=== PATIENT | female | born 1965 | race Caucasian/White ===

== ENCOUNTER 2017-01-29 23:22 | Emergency (ER) | payer SELFPAY ==
[~2017-01-29] VITALS: Ht 175.3 cm; Wt 56.7 kg
[~2017-01-29 23:22] MED LIST: PROTONIX40 MG PO
[2017-01-29 23:56] VITALS: BP 112/69
[2017-01-30] MEDS ORDERED: Norco 5mg/325mg tab ORAL ONE
[2017-01-30] MEDS ORDERED: HYDROCODON-ACE1 EA15 ORAL (00:24)
--- NOTE | 2017-01-30 00:24 | Emergency Room Report ---
History of Present Illness General Chief Complaint: Pain Source: Patient Present Illness HPI This is a 51-year-old female who had recent orthoscopic knee surgery to repair and left meniscal tear 2 weeks ago. She was doing well and off of her pain medication. Tonight her knee locked up and she tried to get up and she twisted her knee. Complaining of left knee pain. Pain is 9/10. Worse with movement. Denies any fall. Denies any nausea vomiting. No radiation. Allergies: Coded Allergies: MEPERIDINE (Verified Allergy, Intermediate, Hives, 10/18/12) COPIED FROM UNCODED SECTION MORPHINE (Verified Allergy, ITCHING, 10/18/12) METOCLOPRAMIDE (Verified Adverse Reaction, Intermediate, "MY MUSCLE MUSCLE ARE FREEZING UP", 10/18/12) COPIED FROM UNCODED SECTION Patient History Past Medical History: see triage record, old chart reviewed Past Surgical History: other Pertinent Family History: none Social History: Denies: smoking Now: No Immunizations: other Reviewed Nursing Documentation: PMH: Agreed, PSxH: Agreed Nursing Documentation-PMH Hx Cardiac Problems: No - LEFT KNEE SURGERY Hx Cancer: No Hx Gastrointestinal Problems: Yes - GASTRIC ULCER,HAD PARTIAL GASTRECTOMY X2 Hx Neurological Problems: Yes Hx Cerebrovascular Accident: No Hx Transient Ischemic Attacks: No Hx Dementia: No Hx Alzheimer's Disease: No Hx Parkinson's Disease: No Hx Meningitis: No Hx Encephalitis: No Hx Seizures: Yes - 2010 Hx Epilepsy: No Hx Multiple Sclerosis: No Hx Cerebral Palsy: No Hx Amyotrophic Lat Sclerosis: No Hx Guillian-[place] Syndrome: No Hx Paralysis: No Hx Peripheral Neuropathy: No Hx Spinal Cord Injury: No Hx Head Trauma: No Hx Traumatic Brain Injury: No Hx Memory Loss: No Hx Concentration Difficulty: No Hx Speech Problem: No Hx Tremors: No Hx Vertigo: No Hx Dizziness: No Hx Syncope: No Hx Headaches: Yes - POST SUBDURAL HEMATOMA REMOVAL Hx Aphasia: No Hx Dysphasia: No Hx Numbness: No Hx Weakness: No Hx Fatigue: No Hx Neurologic Surgery: Yes - HAD SUBDURAL HEMATOMA REMOVED Hx Brain Shunt: No Review of Systems Eye: Denies: blurred vision, eye pain ENT: Denies: ear pain, nose congestion, throat swelling Respiratory: Denies: cough, shortness of breath Cardiovascular: Denies: chest pain, palpitations Gastrointestinal: Denies: abdominal pain, diarrhea, nausea, vomiting Musculoskeletal: Reports: joint pain, joint swelling, Denies: back pain Skin: Denies: rash Neurological: Denies: headache, numbness Endocrine: Denies: increased thirst, increased urine Hematologic/Lymphatic: Denies: easy bruising All Other Systems: negative except mentioned in HPI Physical Exam Vital Signs Date Time Temp Pulse Resp B/P Pulse Ox O2 Delivery O2 Flow Rate FiO2 01/29/17 23:42 97.9 91 16 112/69 95 Room Air vitals normal Sp02 EP Interpretation: reviewed, normal General Appearance: well appearing, no apparent distress, alert Head: normocephalic, atraumatic Eyes: bilateral eye EOMI, bilateral eye PERRL ENT: hearing grossly normal, normal pharynx Neck: full range of motion, supple, no meningismus Respiratory: chest non-tender, lungs clear, normal breath sounds Cardiovascular #1: regular rate, rhythm, no murmur Gastrointestinal: normal bowel sounds, non tender, no mass, no organomegaly, no bruit, non-distended Musculoskeletal: back normal, other - Patient has tenderness along the medial meniscus. Knee is stable. Psychiatric: mood/affect normal Skin: warm/dry Medical Decision Making Diagnostic Impression: Primary Impression: Left knee sprain Qualified Codes: S83.412A - Sprain of medial collateral ligament of left knee , initial encounter ER Course She presents with left knee sprain. She said she has knee immobilizer and crutches at home. Did not require new one. No evidence of any bony injuries. She may have ligament injury. She may be an MRI. This can be done as an outpatient. Other X-Ray Diagnostic Results Other X-Ray Diagnostic Results : X-Ray Ordered: X-rays left knee Date: Jan 30, 2017 Time: 00:23 EP Interpretation: Yes Findings: no fractures, no dislocation, no soft tissue swelling Number of Views: 3 Last Vital Signs Date Time Temp Pulse Resp B/P Pulse Ox O2 Delivery O2 Flow Rate FiO2 01/29/17 23:56 97.9 79 16 112/69 95 Room Air Status: improved Disposition: HOME, SELF-CARE Condition: Stable Scripts Hydrocodone/Acetaminophen 5-325* (HYDROCODONE/ACETAMINOPHEN 5-325*) 1 Each Tablet 1 TAB ORAL Q6H Y for For Pain, #20 TAB 0 Refills Prov: DEVON JACK M.D. 01/30/17 Referrals: NOT CHOSEN [facility]/,REFERRING (PCP) Additional Instructions: Followup with the orthopedic Dr. in 3-5 days. Ice pack to the area. Use the knee immobilizer and crutches. Return if worse. DEVON JACK M.D. Jan 30, 2017 00:24
[2017-01-30 00:27] VITALS: BP 112/69
--- NOTE | 2017-01-30 12:58 | Diagnostic Imaging Report ---
Indication: PAIN Technique: 3 views of the left knee Comparison: None Findings:No suprapatellar effusion. No acute fracture. No dislocation. There is a small superior pole patellar osteophyte. Impression:No acute process This agrees with the preliminary interpretation provided by the emergency room physician
== END 2017-01-30 00:27 | disposition home or self-care (01) ==
LOC: EMR 23:54
DX: S83.92XA Sprain of unspecified site of left knee, initial encounter (principal); X58.XXXA Exposure to other specified factors, initial encounter; Y93.9 Activity, unspecified; Y99.9 Unspecified external cause status; M25.562 Pain in left knee; Z88.5 Allergy status to narcotic agent; Z88.8 Allergy status to other drugs, medicaments and biological substances; Z86.69 Personal history of other diseases of the nervous system and sense organs; Z87.19 Personal history of other diseases of the digestive system; R51 Headache; M25.50 Pain in unspecified joint; M25.40 Effusion, unspecified joint
CPT/HCPCS: 99283

== ENCOUNTER 2017-02-28 14:00 | Emergency (ER) | payer SELFPAY ==
[~2017-02-28] VITALS: Ht 175.3 cm; Wt 56.7 kg
[~2017-02-28 14:00] MED LIST changes: +HYDROCODON-ACE1 EA15 ORAL
[2017-02-28 14:06] VITALS: BP 109/75
[2017-02-28] MEDS ORDERED: Norco 5mg/325mg tab ORAL ONE (14:30)
[2017-02-28] MEDS ORDERED: IBUPROFEN600 MG ORAL (15:04)
[2017-02-28] MEDS ORDERED: NORCO 5-325 TA1 EAC1 ORAL (15:04)
[2017-02-28 15:09] VITALS: BP 109/75
--- NOTE | 2017-02-28 22:06 | Emergency Room Report ---
History of Present Illness General Chief Complaint: Upper Extremity Injury Source: Patient, Medical Record Present Illness HPI The patient is a 51-year-old female presenting for left elbow and left knee pain after falling. Patient states that she had meniscus repair surgery one month prior. She states that she was climbing stairs, tripped, and fell onto the left elbow 3 days prior. She is now complaining of both he and elbow pain. Described as a 10 out of 10 dull ache and does not radiate from these areas. Worse with touch. She denies any other symptoms including numbness or tingling. Allergies: Coded Allergies: MEPERIDINE (Verified Allergy, Intermediate, Hives, 10/18/12) COPIED FROM UNCODED SECTION MORPHINE (Verified Allergy, ITCHING, 10/18/12) METOCLOPRAMIDE (Verified Adverse Reaction, Intermediate, "MY MUSCLE MUSCLE ARE FREEZING UP", 10/18/12) COPIED FROM UNCODED SECTION Patient History Past Medical History: see triage record Pertinent Family History: none Last Menstrual Period: 1 year ago Now: No : 2 Para: 0 Reviewed Nursing Documentation: PMH: Agreed, PSxH: Agreed Nursing Documentation-PMH Past Medical History: No History, Except For Hx Cardiac Problems: No - LEFT KNEE SURGERY Hx Cancer: No Hx Gastrointestinal Problems: Yes - GASTRIC ULCER,HAD PARTIAL GASTRECTOMY X2 Hx Neurological Problems: Yes Hx Cerebrovascular Accident: No Hx Transient Ischemic Attacks: No Hx Dementia: No Hx Alzheimer's Disease: No Hx Parkinson's Disease: No Hx Meningitis: No Hx Encephalitis: No Hx Seizures: Yes - 2009 Hx Epilepsy: No Hx Multiple Sclerosis: No Hx Cerebral Palsy: No Hx Amyotrophic Lat Sclerosis: No Hx Guillian-[place] Syndrome: No Hx Paralysis: No Hx Peripheral Neuropathy: No Hx Spinal Cord Injury: No Hx Head Trauma: No Hx Traumatic Brain Injury: No Hx Memory Loss: No Hx Concentration Difficulty: No Hx Speech Problem: No Hx Tremors: No Hx Vertigo: No Hx Dizziness: No Hx Syncope: No Hx Headaches: Yes - POST SUBDURAL HEMATOMA REMOVAL Hx Aphasia: No Hx Dysphasia: No Hx Numbness: No Hx Weakness: No Hx Fatigue: No Hx Neurologic Surgery: Yes - HAD SUBDURAL HEMATOMA REMOVED Hx Brain Shunt: No Review of Systems All Other Systems: negative except mentioned in HPI Physical Exam Vital Signs Date Time Temp Pulse Resp B/P Pulse Ox O2 Delivery O2 Flow Rate FiO2 02/28/17 14:06 98.2 80 18 109/75 96 Room Air Sp02 EP Interpretation: reviewed, normal General Appearance: no apparent distress, alert, GCS 15, non-toxic Head: normocephalic, atraumatic Eyes: bilateral eye PERRL, bilateral eye normal inspection ENT: hearing grossly normal, normal pharynx, no angioedema, normal voice Musculoskeletal: back normal, gait/station normal, normal range of motion, tender - L olecranon, L anterior knee Neurologic: alert, oriented x3, responsive, motor strength/tone normal, sensory intact, speech normal Psychiatric: judgement/insight normal, memory normal, mood/affect normal, no suicidal/homicidal ideation Skin: normal color, no rash, warm/dry, well hydrated Procedures Splinting Splinting : Consent: Verbal Location: L arm Pre-Made Type: sling Pre-Proc Neuro Vasc Exam: normal Post-Proc Neuro Vasc Exam: normal Patient Tolerated: Well Complications: None Medical Decision Making PA Attestation Dr. Ng is my supervising physician. Patient management was discussed with my supervising physician Diagnostic Impression: Primary Impression: Left knee sprain Qualified Codes: S83.92XA - Sprain of unspecified site of left knee, initial encounter Additional Impression: Elbow contusion Qualified Codes: S50.02XA - Contusion of left elbow, initial encounter ER Course The patient is a 51-year-old female presenting for left elbow and left knee pain after falling Ddx considered include but not limited to sprain/strain, fracture, contusion PE: NAD TTP over the L olecranon and L anterior knee without deformity. No ecchymosis. No edema. FulL AROM X-ray of both areas are unremarkable. Left arm sling is placed She'll be discharged home with a prescription for pain medication and needs to followup with orthopedics as she had recent surgery on the left knee. ER precautions given Other X-Ray Diagnostic Results Other X-Ray Diagnostic Results #1: X-Ray ordered: L knee Indication: Pain EP Interpretation: Yes Interpretation: no dislocation, no soft tissue swelling, no fractures Impression: No acute disease Interpreting ER Provider: Dr. Ng PA Scribe Text I am acting as scribe for my supervising physician. My supervising physician's interpretation of the L knee xrays are there are no fractures, dislocations or soft tissue swelling. Other X-Ray Diagnostic Results #2: X-Ray ordered: L elbow # of Views/Limited Vs Complete: 3 View Indication: Pain EP Interpretation: Yes Interpretation: no dislocation, no soft tissue swelling, no fractures Impression: No acute disease Interpreting ER Provider: Dr. Hernandez LÓPEZ Scribe Text I am acting as scribe for my supervising physician. My supervising physician's interpretation of the L knee xrays are there are no fractures, dislocations or soft tissue swelling. Last Vital Signs Date Time Temp Pulse Resp B/P Pulse Ox O2 Delivery O2 Flow Rate FiO2 02/28/17 15:09 98.2 18 109/75 96 Room Air 02/28/17 14:06 80 Status: improved Disposition: HOME, SELF-CARE Condition: Improved Scripts Hydrocodone Bit/Acetaminophen 5-325* (NORCO 5-325 TABLET*) 1 Each Tablet 1 TAB ORAL Q6HR Y for For Pain, #10 TAB Prov: INGRID MOMIN P.A. 02/28/17 Ibuprofen* (MOTRIN*) 600 Mg Tablet 600 MG ORAL Q8H Y for For Pain, #30 TAB 0 Refills Prov: INGRID MOMIN P.A. 02/28/17 Patient Instructions: Elbow Contusion, Knee Sprain Additional Instructions: I discussed my findings with the patient. All questions and concerns have been answered. Treatment and medication compliance have been addressed. I advised the patient that they need to follow up with PMD in 3-5 days. Return to ED if pain remains or worsens, numbness or tingling occurs, new rash is noticed, fever is noticed, or if needed for any reason. Patient verbalized understanding of discharge instructions. The patient is to follow up with orthopedic surgeon for reevaluation of the left knee INGRID MOMIN Feb 28, 2017 22:06
--- NOTE | 2017-03-01 09:32 | Diagnostic Imaging Report ---
Indications: Fall, left elbow injury and pain Technique: 3 views left elbow. Findings: Comparison: None No fracture, dislocation, joint space widening or effusion , surrounding soft tissue swelling/foreign body/gas, or other acute changes are identified. IMPRESSION: No evidence of acute injury to the left elbow.
--- NOTE | 2017-03-02 10:17 | Diagnostic Imaging Report ---
Indications: Fall, left knee injury and pain Technique: 3 views left knee. Findings: Comparison: None No fracture, dislocation, joint space widening or effusion , surrounding soft tissue swelling/foreign body/gas, or other acute changes are identified. Small spur emanates from the superior pole of the patella in region of quadriceps tendon insertion. IMPRESSION: No evidence of acute injury to the left knee Patellar enthesophyte.
== END 2017-02-28 15:09 | disposition home or self-care (01) ==
LOC: EMR 14:25
DX: S83.92XA Sprain of unspecified site of left knee, initial encounter (principal); S50.02XA Contusion of left elbow, initial encounter; Z88.8 Allergy status to other drugs, medicaments and biological substances; W10.9XXA Fall (on) (from) unspecified stairs and steps, initial encounter; Y92.9 Unspecified place or not applicable
CPT/HCPCS: 99284

== ENCOUNTER 2017-03-08 21:39 | Inpatient (IN) | payer BC ==
[~2017-03-08] VITALS: Ht 175.3 cm; Wt 59.0 kg
[~2017-03-08 21:39] MED LIST changes: +IBUPROFEN600 MG ORAL; +NORCO 5-325 TA1 EAC1 ORAL
[2017-03-08] MEDS ORDERED: Famotidine 20 MG/ 2ML VIAL IVP ONE (22:00)
[2017-03-08 22:36] VITALS: BP 135/76
[2017-03-08] MEDS ORDERED: HYDROmorphone 1mg/ml Carpuject IVP ONE (22:45)
[2017-03-08 22:50] LABS: BASOPHILS % (AUTO) 1.1 % (0.0-2.0); EOSINOPHILS % (AUTO) 1.3 % (0.0-3.0); LYMPHOCYTES % (AUTO) 21.4 % (20.0-45.0); MEAN CORPUSCULAR HEMOGLOBIN 31.8 PG (27.0-31.0); MEAN CORPUSCULAR HGB CONC 34.2 G/DL (32.0-36.0); MEAN CORPUSCULAR VOLUME 93 FL (80-99); MEAN PLATELET VOLUME 8.8 FL (6.5-10.1); MONOCYTES % (AUTO) 5.4 % (1.0-10.0); NEUTROPHILS % (AUTO) 70.8 % (45.0-75.0); PLATELET COUNT 149 K/UL (150-450); RED BLOOD COUNT 3.53 M/UL (4.20-5.40); RED CELL DISTRIBUTION WIDTH 14.2 % (11.6-14.8); WHITE BLOOD COUNT 6.5 K/UL (4.8-10.8)
[2017-03-08 23:01] LABS: PROTHROMBIN TIME 10.1 SEC (9.30-11.50)
[2017-03-08 23:05] LABS: TROPONIN I < 0.30 ng/mL (<=0.30)
[2017-03-08 23:09] LABS: ALANINE AMINOTRANSFERASE 16 U/L (3-33); ALBUMIN/GLOBULIN RATIO 1.7 (1.0-2.7); ANION GAP 12 (5-15); ASPARTATE AMINO TRANSFERASE 17 U/L (5-40); CALCIUM 9.1 mg/dL (8.6-10.2); CARBON DIOXIDE 24 mEQ/L (20-30); CHLORIDE 107 mEQ/L (98-107); CREATININE 0.6 mg/dL (0.5-0.9); GLOMERULAR FILTRATION RATE > 60 mL/min (>60); HEMOLYSIS 7; LIPASE 25 U/L (< 60); POTASSIUM 3.6 mEQ/L (3.4-4.9); SODIUM 143 mEQ/L (135-145); TOTAL PROTEIN 6.1 g/dL (6.6-8.7)
[2017-03-08 23:46] LABS: APPEARANCE,URINE CLEAR; KETONES,URINE 2+ (NEGATIVE); LEUKOCYTE ESTERASE ,URINE NEGATIVE (NEGATIVE); NITRITE,URINE NEGATIVE (NEGATIVE); PH,URINE 7 (4.5-8.0); PROTEIN,URINE NEGATIVE (NEGATIVE); UROBILINOGEN,URINE NORMAL MG/DL (0.0-1.0)
[2017-03-09] VITALS (10 sets, daily range): BP systolic 96–140; BP diastolic 63–88
[2017-03-09] MEDS ORDERED: HYDROmorphone 1mg/ml Carpuject IVP ONE (00:15)
--- NOTE | 2017-03-09 01:30 | Emergency Room Report ---
History of Present Illness General Chief Complaint: Abdominal Pain Source: Patient Present Illness HPI 51-year-old female presents ED complaining of abdominal pain and vomiting. Patient states that she's been vomiting blood. Notes history of gastric ulcers. States she was recently admitted to [facility] for treatment of the ulcer and had it "clipped". She states she was discharged a few days ago. Patient notes having multiple episodes of vomiting blood. Pain is epigastric, sharp, 8/10, nonradiating. Denies chest pain or shortness of breath. Denies taking blood thinners. No other aggravating relieving factors. Denies any other associated symptoms Allergies: Coded Allergies: MEPERIDINE (Verified Allergy, Intermediate, Hives, 10/18/12) COPIED FROM UNCODED SECTION PANTOPRAZOLE (Verified Allergy, Intermediate, 03/08/17) MORPHINE (Verified Allergy, Unknown, ITCHING, 03/08/17) METOCLOPRAMIDE (Verified Adverse Reaction, Intermediate, "MY MUSCLE MUSCLE ARE FREEZING UP", 10/18/12) COPIED FROM UNCODED SECTION Patient History Past Medical History: ulcer Past Surgical History: other - gastric bypass Pertinent Family History: none Social History: Denies: alcohol use, drug use, smoking Now: No Immunizations: UTD Reviewed Nursing Documentation: PMH: Agreed, PSxH: Agreed Nursing Documentation-PMH Hx Cardiac Problems: No Hx Hypertension: No Hx Asthma: No Hx COPD: No Hx Diabetes: No Hx Cancer: No Hx Gastrointestinal Problems: Yes - ulcer Hx Dialysis: No History Of Psychiatric Problem: No Hx Neurological Problems: No Hx Cerebrovascular Accident: No Hx Transient Ischemic Attacks: No Hx Dementia: No Hx Alzheimer's Disease: No Hx Parkinson's Disease: No Hx Meningitis: No Hx Encephalitis: No Hx Seizures: No Hx Epilepsy: No Hx Multiple Sclerosis: No Hx Cerebral Palsy: No Hx Amyotrophic Lat Sclerosis: No Hx Guillian-[place] Syndrome: No Hx Paralysis: No Hx Peripheral Neuropathy: No Hx Spinal Cord Injury: No Hx Head Trauma: No Hx Traumatic Brain Injury: No Hx Memory Loss: No Hx Concentration Difficulty: No Hx Speech Problem: No Hx Tremors: No Hx Vertigo: No Hx Dizziness: No Hx Syncope: No Hx Headaches: Yes - POST SUBDURAL HEMATOMA REMOVAL Hx Aphasia: No Hx Dysphasia: No Hx Numbness: No Hx Weakness: No Hx Fatigue: No Hx Neurologic Surgery: Yes - HAD SUBDURAL HEMATOMA REMOVED Hx Brain Shunt: No Review of Systems All Other Systems: negative except mentioned in HPI Physical Exam Vital Signs Date Time Temp Pulse Resp B/P Pulse Ox O2 Delivery O2 Flow Rate FiO2 03/08/17 21:44 98.2 68 16 108/60 98 Room Air 03/08/17 22:36 98 Sp02 EP Interpretation: reviewed, normal General Appearance: alert, GCS 15, non-toxic, mild distress, thin Head: normocephalic, atraumatic Eyes: bilateral eye PERRL, bilateral eye normal inspection ENT: hearing grossly normal, normal pharynx, no angioedema, normal voice Neck: full range of motion, supple/symm/no masses Respiratory: chest non-tender, lungs clear, normal breath sounds, speaking full sentences Cardiovascular #1: regular rate, rhythm, no edema Cardiovascular #2: 2+ carotid (R), 2+ carotid (L), 2+ radial (R), 2+ radial (L) , 2+ dorsalis pedis (R), 2+ dorsalis pedis (L) Gastrointestinal: normal bowel sounds, soft, non-distended, no guarding, no rebound, tenderness - epigastric Rectal: deferred Genitourinary: normal inspection, no CVA tenderness Musculoskeletal: back normal, gait/station normal, normal range of motion, non- tender Neurologic: alert, oriented x3, responsive, motor strength/tone normal, sensory intact, speech normal Psychiatric: judgement/insight normal, memory normal, mood/affect normal, no suicidal/homicidal ideation Reflexes: 3+ bicep (R), 3+ bicep (L), 3+ tricep (R), 3+ tricep (L), 3+ knee (R) , 3+ knee (L) Skin: normal color, no rash, warm/dry, well hydrated Lymphatic: no adenopathy Medical Decision Making Diagnostic Impression: Primary Impression: UGIB (upper gastrointestinal bleed) ER Course Hospital Course 51-year-old female presents ED complaining of vomiting blood. History of ulcer. Recently discharged from [facility] Differential diagnoses include: UGIB, LGIB, hemorrhoids Clinical course Patient placed on stretcher. manager monitoring. After initial history and physical I ordered labs, IV fluids, zofran, pepcid, pain meds, CT Labs - no leukocytosis, Hb/Hct stable. electrolytes ok. trop negative CT shows status post cholecystectomy, status post gastric bypass but no acute changes otherwise She continues to have pain and is vomiting blood. Started on octreotide Case discussed with Dr. Magallanes and he agreed to accept the patient to his service for further care and support I feel this is a highly complex case requiring extensive working including EKG/ Rhythm strip, Xray/CT/US, Blood/urine lab work, repeat exams while in ED, and administration of strong opiates/narcotics for pain control, admission to hospital or close patient follow up. Diagnosis - UGIB Patient admitted to [facility] in serious condition Labs Test 03/08/17 22:20 03/08/17 23:40 White Blood Count 6.5 K/UL (4.8-10.8) Red Blood Count 3.53 M/UL (4.20-5.40) Hemoglobin 11.2 G/DL (12.0-16.0) Hematocrit 32.9 % (37.0-47.0) Mean Corpuscular Volume 93 FL (80-99) Mean Corpuscular Hemoglobin 31.8 PG (27.0-31.0) Mean Corpuscular Hemoglobin Concent 34.2 G/DL (32.0-36.0) Red Cell Distribution Width 14.2 % (11.6-14.8) Platelet Count 149 K/UL (150-450) Mean Platelet Volume 8.8 FL (6.5-10.1) Neutrophils (%) (Auto) 70.8 % (45.0-75.0) Lymphocytes (%) (Auto) 21.4 % (20.0-45.0) Monocytes (%) (Auto) 5.4 % (1.0-10.0) Eosinophils (%) (Auto) 1.3 % (0.0-3.0) Basophils (%) (Auto) 1.1 % (0.0-2.0) Prothrombin Time 10.1 SEC (9.30-11.50) Prothromb Time International Ratio 1.0 (0.9-1.1) Activated Partial Thromboplast Time 21 SEC (23-33) Sodium Level 143 mEQ/L (135-145) Potassium Level 3.6 mEQ/L (3.4-4.9) Chloride Level 107 mEQ/L (98-107) Carbon Dioxide Level 24 mEQ/L (20-30) Anion Gap 12 (5-15) Blood Urea Nitrogen 18 mg/dL (7-23) Creatinine 0.6 mg/dL (0.5-0.9) Estimat Glomerular Filtration Rate > 60 mL/min (>60) Glucose Level 96 mg/dL (74-106) Calcium Level 9.1 mg/dL (8.6-10.2) Total Bilirubin < 0.2 mg/dL (0.0-1.2) Aspartate Amino Transf (AST/SGOT) 17 U/L (5-40) Alanine Aminotransferase (ALT/SGPT) 16 U/L (3-33) Alkaline Phosphatase 62 U/L (35-104) Troponin I < 0.30 ng/mL (<=0.30) Total Protein 6.1 g/dL (6.6-8.7) Albumin 3.9 g/dL (3.5-5.2) Globulin 2.2 g/dL Albumin/Globulin Ratio 1.7 (1.0-2.7) Lipase 25 U/L (< 60) Urine Color Pale yellow Urine Appearance Clear Urine pH 7 (4.5-8.0) Urine Specific [place] 1.010 (1.005-1.035) Urine Protein Negative (NEGATIVE) Urine Glucose (UA) Negative (NEGATIVE) Urine Ketones 2+ (NEGATIVE) Urine Occult Blood Negative (NEGATIVE) Urine Nitrite Negative (NEGATIVE) Urine Bilirubin Negative (NEGATIVE) Urine Urobilinogen Normal MG/DL (0.0-1.0) Urine Leukocyte Esterase Negative (NEGATIVE) CT/MRI/US Diagnostic Results CT/MRI/US Diagnostic Results : Imaging Test Ordered: CT A/P Impression s/p cholecystectomy. s/p gastric bypass. no acute process identifed Last Vital Signs Date Time Temp Pulse Resp B/P Pulse Ox O2 Delivery O2 Flow Rate FiO2 03/08/17 22:36 98.0 78 16 135/76 98 Room Air 98 Status: improved Disposition: ADMITTED INPATIENT Condition: Serious Referrals: [facility],REFERRING (PCP) KENNY TAVAREZ M.D. Mar 09, 2017 01:30
[2017-03-09] MEDS: Octreotide Acetate 500 MCG in Sodium Chloride 499 ML IV SCH ×3 (01:45→22:38)
[2017-03-09] MEDS ORDERED: XANAX0.25 MG ORAL (02:12)
[2017-03-09] MEDS ORDERED: ZANTAC150 MG ORAL (02:12)
[2017-03-09] MEDS ORDERED: CARAFATE1 G1 ORAL (02:12)
[2017-03-09] MEDS ORDERED: HYDROmorphone 2mg tab ORAL PRN (02:15)
[2017-03-09 02:48] LABS: EOSINOPHILS % (AUTO) 1.7 % (0.0-3.0); LYMPHOCYTES % (AUTO) 29.5 % (20.0-45.0); MEAN CORPUSCULAR HEMOGLOBIN 30.4 PG (27.0-31.0); MEAN CORPUSCULAR HGB CONC 32.1 G/DL (32.0-36.0); MEAN CORPUSCULAR VOLUME 95 FL (80-99); MEAN PLATELET VOLUME 8.4 FL (6.5-10.1); MONOCYTES % (AUTO) 6.2 % (1.0-10.0); NEUTROPHILS % (AUTO) 61.6 % (45.0-75.0); PLATELET COUNT 145 K/UL (150-450); RED BLOOD COUNT 3.59 M/UL (4.20-5.40); RED CELL DISTRIBUTION WIDTH 14.7 % (11.6-14.8); WHITE BLOOD COUNT 5.9 K/UL (4.8-10.8)
[2017-03-09] MEDS ORDERED: ALPRAZolam 0.25mg tab ORAL SCH (05:30)
[2017-03-09] MEDS: HYDROmorphone 1mg/ml Carpuject IVP PRN ×5 (05:40→22:57)
[2017-03-09] MEDS ORDERED: Sucralfate 1gm tab ORAL ONE (06:30)
--- NOTE | 2017-03-09 09:10 | Diagnostic Imaging Report ---
Indication: Abdominal pain Technique: Continuous helical transaxial imaging of the abdomen and pelvis was obtained from the lung bases to the pubic symphysis during intravenous contrast administration. Coronal 2-D reformats were also obtained. Study obtained in a Siemens sensation [address] Total Dose length Product (DLP): [address] Dose Index Volume (CTDIvol): 15 mGy Comparison: None Findings: There is mild posterior basilar atelectasis. Cholecystectomy noted. No biliary ductal prominence is demonstrated. Please correlate clinically. Sutures in the stomach are noted, likely stigmata of gastric bypass. No free fluid or free air or evidence of bowel obstruction. No hydronephrosis demonstrated. Mild arterial calcifications are present. The uterus is retroverted. The appendix is definitely seen. Impression: Biliary ductal prominence in the context of previous cholecystectomy. Please correlate clinically. Status post gastric bypass. Retroverted uterus [facility] has communicated the preliminary results to the Emergency Department. Their findings are largely concordant with this report. The CT scanner at [facility] is accredited by the [employer] and the scans are performed using dose optimization techniques as appropriate to a performed exam including Automatic Exposure control.
[2017-03-09 12:18] LABS: EOSINOPHILS % (AUTO) 3.8 % (0.0-3.0); LYMPHOCYTES % (AUTO) 43.4 % (20.0-45.0); MEAN CORPUSCULAR HEMOGLOBIN 29.7 PG (27.0-31.0); MEAN CORPUSCULAR HGB CONC 31.6 G/DL (32.0-36.0); MEAN CORPUSCULAR VOLUME 94 FL (80-99); MEAN PLATELET VOLUME 8.2 FL (6.5-10.1); MONOCYTES % (AUTO) 6.8 % (1.0-10.0); PLATELET COUNT 138 K/UL (150-450); RED BLOOD COUNT 3.61 M/UL (4.20-5.40); RED CELL DISTRIBUTION WIDTH 14.7 % (11.6-14.8); WHITE BLOOD COUNT 4.5 K/UL (4.8-10.8)
[2017-03-09 12:24] LABS: ANION GAP 9 (5-15); CALCIUM 8.3 mg/dL (8.6-10.2); CARBON DIOXIDE 27 mEQ/L (20-30); CHLORIDE 104 mEQ/L (98-107); CREATININE 0.5 mg/dL (0.5-0.9); GLOMERULAR FILTRATION RATE > 60 mL/min (>60); HEMOLYSIS 4; POTASSIUM 3.3 mEQ/L (3.4-4.9); SODIUM 140 mEQ/L (135-145)
[2017-03-09] MEDS: ALPRAZolam 0.25mg tab ORAL SCH (18:04)
[2017-03-09 18:24] LABS: BASOPHILS % (AUTO) 1.7 % (0.0-2.0); EOSINOPHILS % (AUTO) 4.4 % (0.0-3.0); LYMPHOCYTES % (AUTO) 43.4 % (20.0-45.0); MEAN CORPUSCULAR HEMOGLOBIN 30.5 PG (27.0-31.0); MEAN CORPUSCULAR HGB CONC 32.8 G/DL (32.0-36.0); MEAN CORPUSCULAR VOLUME 93 FL (80-99); MEAN PLATELET VOLUME 8.3 FL (6.5-10.1); MONOCYTES % (AUTO) 6.2 % (1.0-10.0); NEUTROPHILS % (AUTO) 44.4 % (45.0-75.0); PLATELET COUNT 135 K/UL (150-450); RED BLOOD COUNT 3.63 M/UL (4.20-5.40); RED CELL DISTRIBUTION WIDTH 14.5 % (11.6-14.8); WHITE BLOOD COUNT 4.3 K/UL (4.8-10.8)
[2017-03-10] VITALS (9 sets, daily range): BP systolic 95–122; BP diastolic 54–75
[2017-03-10 02:04] LABS: BASOPHILS % (AUTO) 1.5 % (0.0-2.0); EOSINOPHILS % (AUTO) 5.2 % (0.0-3.0); LYMPHOCYTES % (AUTO) 45.3 % (20.0-45.0); MEAN CORPUSCULAR HGB CONC 32.5 G/DL (32.0-36.0); MEAN CORPUSCULAR VOLUME 95 FL (80-99); MEAN PLATELET VOLUME 7.7 FL (6.5-10.1); MONOCYTES % (AUTO) 7.1 % (1.0-10.0); NEUTROPHILS % (AUTO) 40.9 % (45.0-75.0); PLATELET COUNT 144 K/UL (150-450); RED BLOOD COUNT 3.63 M/UL (4.20-5.40); RED CELL DISTRIBUTION WIDTH 14.4 % (11.6-14.8)
[2017-03-10] MEDS: HYDROmorphone 1mg/ml Carpuject IVP PRN ×6 (03:14→23:22)
--- NOTE | 2017-03-10 04:00 | History and Physical Report ---
DATE OF ADMISSION: 03/09/2017 CHIEF COMPLAINT: Abdominal pain. HISTORY OF PRESENT ILLNESS: This is a 51-year-old female who was just discharged from [facility] two days ago after admission for GI bleed. The patient was admitted there to the ISP service. The patient underwent there full workup. She was seen there by Dr. Zhou, GI consult. She underwent EGD with active oozing seen in the jejunum. This was a hemoclips. Her hemoglobin remained stable post procedure with no further episodes of hematemesis. She had a trial of Protonix. The patient developed "body spasms." This resolved with Benadryl. The patient was intolerant to PPIs and was started on Zantac b.i.d. She was continued on Carafate. The patient's symptoms were controlled with p.o. [place]. The patient demanded to go home and was discharged. I tried to get the patient to my office, but the phone was disconnected. The patient was referred interestingly in this emergency room yesterday. PAST MEDICAL HISTORY: 1. Multiple admissions for gastrointestinal bleed. 2. Status post partial gastrectomy at [facility] in 2006. 3. Anastomotic AVMs. 4. Status post APC three months ago. 5. Degenerative joint disease. 6. Status post cholecystectomy. 7. Status post gastric bypass. 8. History of extrahepatic biliary ductal dilatation. 9. Decompressed rectosigmoid. 10. History of head injury. 11. History of anemia. 12. History of bleeding disorder. 13. History of subdural hematoma in 2009. 14. Status post appendectomy. 15. History of GI Argon plasma coagulation. 16. Status post hysterectomy. MEDICATIONS: Pre-admission, [place] p.r.n., Zofran p.r.n., Protonix, and Carafate. ALLERGIES: Meperidine, morphine causing rash, and Reglan. SOCIAL HISTORY: She smokes one pack a day of cigarettes. FAMILY HISTORY: Unremarkable. REVIEW OF SYSTEMS: HEENT: Normal. Endocrine: No history of diabetes, thyroid, or adrenal problems. Respiratory: She denies shortness of breath, cough, or hemoptysis. Cardiovascular: She denies chest pain or palpitations. Gastrointestinal: No history of hematochezia, melena, hematemesis, diarrhea, or constipation. Genitourinary: She denies dysuria, frequency, or hematuria. Neurologic: No history of stroke, syncope, or Parkinson disease. PHYSICAL EXAMINATION: GENERAL: This is a middle-aged female, who is in no acute distress. VITAL SIGNS: Blood pressure 100/60, pulse 60 and regular, respiratory rate 20, and temperature 98 degrees. HEENT: The head is normocephalic and atraumatic. Pupils are equal, round, and reactive to light and accommodation consensually. NECK: Supple. Trachea midline. There was no lymphadenopathy or thyromegaly. LUNGS: Clear to auscultation and percussion. HEART: Regular rate and rhythm without rubs, murmurs, or gallops. ABDOMEN: Soft and nontender. Bowel sounds are active. EXTREMITIES: No clubbing, cyanosis, or edema. NEUROLOGIC: She is alert and oriented x4. Cranial nerves II through XII are intact. LABORATORY AND ANCILLARY DATA: CBC and BMP within normal limits. Imaging reports, CT scan of abdomen shows biliary ductal prominence, status post gastric bypass and retroverted uterus. ASSESSMENT: 1. Nonspecific abdominal pain. Plan is GI consult. 2. Multiple admissions for gastrointestinal bleed. 3. Status post partial gastrectomy at [facility] in 2006. 4. Anastomotic arteriovenous malformations. 5. Status post intermittent pneumatic compression three months ago. 6. Degenerative joint disease. 7. Status post cholecystectomy. 8. Status post gastric bypass. 9. History of extra hepatic biliary ductal dilatation. 10. Decompressed rectosigmoid. 11. History of head injury. 12. History of anemia. 13. History of bleeding disorder. 14. History of subdural hematoma in 2009. 15. Status post appendectomy. 16. History of GI Argon plasma coagulation. 17. Status post hysterectomy. PLAN: 1. Symptomatic treatment. 2. GI to advice. Mariya Treadwell M.D. DR: LEILA JOB#: [id number] CC:
[2017-03-10] MEDS: ALPRAZolam 0.25mg tab ORAL SCH ×2 (06:06→18:04)
[2017-03-10 06:31] LABS: BASOPHILS % (AUTO) 1.3 % (0.0-2.0); EOSINOPHILS % (AUTO) 4.9 % (0.0-3.0); LYMPHOCYTES % (AUTO) 46.4 % (20.0-45.0); MEAN CORPUSCULAR HEMOGLOBIN 30.1 PG (27.0-31.0); MEAN CORPUSCULAR HGB CONC 31.6 G/DL (32.0-36.0); MEAN CORPUSCULAR VOLUME 95 FL (80-99); MEAN PLATELET VOLUME 8.5 FL (6.5-10.1); MONOCYTES % (AUTO) 7.6 % (1.0-10.0); NEUTROPHILS % (AUTO) 39.8 % (45.0-75.0); PLATELET COUNT 137 K/UL (150-450); RED BLOOD COUNT 3.78 M/UL (4.20-5.40); RED CELL DISTRIBUTION WIDTH 14.5 % (11.6-14.8); WHITE BLOOD COUNT 3.8 K/UL (4.8-10.8)
[2017-03-10 06:41] LABS: PROTHROMBIN TIME 10.7 SEC (9.30-11.50)
[2017-03-10 06:49] LABS: ANION GAP 10 (5-15); ASPARTATE AMINO TRANSFERASE 27 U/L (5-40); CALCIUM 8.5 mg/dL (8.6-10.2); CARBON DIOXIDE 26 mEQ/L (20-30); CHLORIDE 104 mEQ/L (98-107); CREATININE 0.5 mg/dL (0.5-0.9); GLOMERULAR FILTRATION RATE > 60 mL/min (>60); POTASSIUM 3.9 mEQ/L (3.4-4.9); SODIUM 140 mEQ/L (135-145)
[2017-03-10 06:50] LABS: ALANINE AMINOTRANSFERASE 20 U/L (3-33); ALBUMIN/GLOBULIN RATIO 1.7 (1.0-2.7); HEMOLYSIS 7; TOTAL PROTEIN 5.5 g/dL (6.6-8.7)
[2017-03-10] MEDS: Octreotide Acetate 500 MCG in Sodium Chloride 499 ML IV SCH ×2 (08:46→18:06)
[2017-03-10] MEDS ORDERED: NS 550ML IV ONE (11:55)
[2017-03-10] MEDS ORDERED: LR 1000ml ONE (12:00)
[2017-03-10] MEDS ORDERED: Lidocaine 1% MPF 10mg/ml 5ml ONE (12:00)
[2017-03-10] MEDS ORDERED: Propofol 10mg/ml 20ml IV ONE (12:00)
--- NOTE | 2017-03-10 12:01 | Pre-Procedure Note/Attestation ---
Pre-Procedure Note/Attestation Complete Prior to Procedure Planned Procedure: not applicable Procedure Narrative: egd Indications for Procedure Pre-Operative Diagnosis: gib Attestation I attest that I discussed the nature of the procedure; its benefits; risks and complications; and alternatives (and the risks and benefits of such alternatives ), prior to the procedure, with the patient (or the patient's legal rental representative). I attest that, if there was a reasonable possibility of needing a blood transfusion, the patient (or the patient's legal rental representative) was given the [facility] standardized written summary, pursuant to the Karthik Memo Blood Safety Act ([place] Health and Safety Code # 1645, as amended). I attest that I re-evaluated the patient just prior to the surgery and that there has been no change in the patient's H&P, except as documented below: CHAR MENEZES Mar 10, 2017 12:01
--- NOTE | 2017-03-10 12:30 | Endoscopy Procedure Note ---
Endoscopy Procedure Note Indication for Procedure: gib Procedures Performed: EGD Operative Findings/Diagnosis: gastric polyp Specimen: yes Pt Tolerated Procedure Well: Yes Estimated Blood Loss: none Anesthesiologist: florencia Anesthesia: MAC Implant(s) used?: No 50 yrs or older w/o bx or poly: Not Applicable 10yrs. F/U not recommended: Not Applicable CHAR MENEZES Mar 10, 2017 12:30
--- NOTE | 2017-03-10 12:50 | General Progress Note ---
Subjective Allergies: Coded Allergies: MEPERIDINE (Verified Allergy, Intermediate, Hives, 10/18/12) COPIED FROM UNCODED SECTION PANTOPRAZOLE (Verified Allergy, Intermediate, 03/08/17) MORPHINE (Verified Allergy, Unknown, ITCHING, 03/08/17) METOCLOPRAMIDE (Verified Adverse Reaction, Intermediate, "MY MUSCLE MUSCLE ARE FREEZING UP", 10/18/12) COPIED FROM UNCODED SECTION Subjective Patient went for EGD. To review results . Objective Last 24 Hour Vital Signs Date Time Temp Pulse Resp B/P Pulse Ox O2 Delivery O2 Flow Rate FiO2 03/10/17 11:45 97.9 86 19 122/74 96 Room Air 03/10/17 11:36 97.9 03/10/17 08:00 50 03/10/17 08:00 97.9 57 20 118/75 96 Room Air 03/10/17 04:38 50 03/10/17 04:22 97.7 58 20 114/73 97 Room Air 58 03/10/17 04:00 58 03/10/17 00:00 58 03/09/17 23:33 97.7 56 20 124/80 99 Room Air 56 03/09/17 20:12 98.0 62 20 140/88 98 Room Air 62 03/09/17 20:00 59 03/09/17 16:00 98.2 72 18 110/73 97 Room Air 03/09/17 15:51 58 Intake and Output 03/09/17 03/10/17 19:00 07:00 Intake Total 350 ml 952.5 ml Output Total 1 ml Balance 350 ml 951.5 ml Intake Oral 365 ml IV Total 350 ml 587.5 ml Emesis 1 ml # Voids 2 Laboratory Tests 03/09/17 17:45: White Blood Count 4.3L, Red Blood Count 3.63L, Hemoglobin 11.1L, Hematocrit 33.8L, Mean Corpuscular Volume 93, Mean Corpuscular Hemoglobin 30.5, Mean Corpuscular Hemoglobin Concent 32.8, Red Cell Distribution Width 14.5, Platelet Count 135L, Mean Platelet Volume 8.3, Neutrophils (%) (Auto) 44.4L, Lymphocytes (%) (Auto) 43.4, Monocytes (%) (Auto) 6.2, Eosinophils (%) (Auto) 4.4H, Basophils (%) (Auto) 1.7 03/10/17 01:40: White Blood Count 4.0L, Red Blood Count 3.63L, Hemoglobin 11.2L, Hematocrit 34.6L, Mean Corpuscular Volume 95, Mean Corpuscular Hemoglobin 31.0, Mean Corpuscular Hemoglobin Concent 32.5, Red Cell Distribution Width 14.4, Platelet Count 144L, Mean Platelet Volume 7.7, Neutrophils (%) (Auto) 40.9L, Lymphocytes (%) (Auto) 45.3H, Monocytes (%) (Auto) 7.1, Eosinophils (%) (Auto) 5.2H, Basophils (%) (Auto) 1.5 03/10/17 06:20: White Blood Count 3.8L, Red Blood Count 3.78L, Hemoglobin 11.4L, Hematocrit 36.0L, Mean Corpuscular Volume 95, Mean Corpuscular Hemoglobin 30.1, Mean Corpuscular Hemoglobin Concent 31.6L, Red Cell Distribution Width 14.5, Platelet Count 137L, Mean Platelet Volume 8.5, Neutrophils (%) (Auto) 39.8L, Lymphocytes (%) (Auto) 46.4H, Monocytes (%) (Auto) 7.6, Eosinophils (%) (Auto) 4.9H, Basophils (%) (Auto) 1.3, Prothrombin Time 10.7, Prothromb Time International Ratio 1.0, Activated Partial Thromboplast Time 26, Sodium Level 140, Potassium Level 3.9, Chloride Level 104, Carbon Dioxide Level 26, Anion Gap 10, Blood Urea Nitrogen 6L, Creatinine 0.5, Estimat Glomerular Filtration Rate > 60, Glucose Level 85, Calcium Level 8.5L, Total Bilirubin 0.3, Aspartate Amino Transf (AST/SGOT) 27, Alanine Aminotransferase (ALT/SGPT) 20, Alkaline Phosphatase 51, Total Protein 5.5L, Albumin 3.5, Globulin 2.0, Albumin/Globulin Ratio 1.7 Height (Feet): 5 Height (Inches): 9.00 Weight (Pounds): 130 IRENE RUBIO Mar 10, 2017 12:50
--- NOTE | 2017-03-10 13:17 | Anethesia Preoperative Eval ---
Anesthesia Pre-op PMH/ROS General Date of Evaluation: Mar 10, 2017 Anesthesiologist: Aries ASA Score: ASA 3 Mallampati Score Class I : Soft palate, uvula, fauces, pillars visible Class II: Soft palate, uvula, fauces visible Class III: Soft palate, base of uvula visible Class IV: Only hard plate visible Mallampati Classification: Class II Surgeon: Charlie Diagnosis: GI bleed Surgical Procedure: EGD Anesthesia History: none Family History: no anesthesia problems Allergies: Coded Allergies: MEPERIDINE (Verified Allergy, Intermediate, Hives, 10/18/12) COPIED FROM UNCODED SECTION PANTOPRAZOLE (Verified Allergy, Intermediate, 03/08/17) MORPHINE (Verified Allergy, Unknown, ITCHING, 03/08/17) METOCLOPRAMIDE (Verified Adverse Reaction, Intermediate, "MY MUSCLE MUSCLE ARE FREEZING UP", 10/18/12) COPIED FROM UNCODED SECTION Medications: see eMAR Past Medical History Cardiovascular: Denies: CAD, HTN, MS, arrhythmia, other, valve dz Pulmonary: Denies: COPD, GEO, asthma, other Gastrointestinal/Genitourinary: Reports: GERD, Denies: CRI, ESRD, other Neurologic/Psychiatric: Reports: other - h/o subdural hematoma, Denies: CVA, TIA, dementia, depression/anxiety Endocrine: Denies: DM, hypothyroidism, other, steroids HEENT: Denies: [place] (L), [place] (R), cataract (L), cataract (R), glaucoma, other Hematology/Immune: Reports: anemia - acute on chronic, Denies: DVT, bleeding disorder, other Musculoskeletal/Integumentary: Denies: DDD, DJD, OA, RA, edema, other PSxH Narrative: partial gastrectomy Anesthesia Pre-op Phys. Exam Physician Exam Last Vital Signs Date Time Temp Pulse Resp B/P Pulse Ox O2 Delivery O2 Flow Rate FiO2 03/10/17 12:50 97.9 59 18 110/75 98 Room Air 03/10/17 12:37 3.0 03/09/17 03:20 98 Constitutional: NAD Cardiovascular: RRR Respiratory: CTA Airway Exam Mallampati Score: Class II MO: full ROM: full Teeth: intact Anesthesia Pre-op A/P Labs Hematology Test 03/09/17 17:45 03/10/17 01:40 03/10/17 06:20 White Blood Count 4.3 K/UL (4.8-10.8) L 4.0 K/UL (4.8-10.8) L 3.8 K/UL (4.8-10.8) L Red Blood Count 3.63 M/UL (4.20-5.40) L 3.63 M/UL (4.20-5.40) L 3.78 M/UL (4.20-5.40) L Hemoglobin 11.1 G/DL (12.0-16.0) L 11.2 G/DL (12.0-16.0) L 11.4 G/DL (12.0-16.0) L Hematocrit 33.8 % (37.0-47.0) L 34.6 % (37.0-47.0) L 36.0 % (37.0-47.0) L Mean Corpuscular Volume 93 FL (80-99) 95 FL (80-99) 95 FL (80-99) Mean Corpuscular Hemoglobin 30.5 PG (27.0-31.0) 31.0 PG (27.0-31.0) 30.1 PG (27.0-31.0) Mean Corpuscular Hemoglobin Concent 32.8 G/DL (32.0-36.0) 32.5 G/DL (32.0-36.0) 31.6 G/DL (32.0-36.0) L Red Cell Distribution Width 14.5 % (11.6-14.8) 14.4 % (11.6-14.8) 14.5 % (11.6-14.8) Platelet Count 135 K/UL (150-450) L 144 K/UL (150-450) L 137 K/UL (150-450) L Mean Platelet Volume 8.3 FL (6.5-10.1) 7.7 FL (6.5-10.1) 8.5 FL (6.5-10.1) Neutrophils (%) (Auto) 44.4 % (45.0-75.0) L 40.9 % (45.0-75.0) L 39.8 % (45.0-75.0) L Lymphocytes (%) (Auto) 43.4 % (20.0-45.0) 45.3 % (20.0-45.0) H 46.4 % (20.0-45.0) H Monocytes (%) (Auto) 6.2 % (1.0-10.0) 7.1 % (1.0-10.0) 7.6 % (1.0-10.0) Eosinophils (%) (Auto) 4.4 % (0.0-3.0) H 5.2 % (0.0-3.0) H 4.9 % (0.0-3.0) H Basophils (%) (Auto) 1.7 % (0.0-2.0) 1.5 % (0.0-2.0) 1.3 % (0.0-2.0) Coagulation Test 03/10/17 06:20 Prothrombin Time 10.7 SEC (9.30-11.50) Prothromb Time International Ratio 1.0 (0.9-1.1) Activated Partial Thromboplast Time 26 SEC (23-33) Chemistry Test 03/10/17 06:20 Sodium Level 140 mEQ/L (135-145) Potassium Level 3.9 mEQ/L (3.4-4.9) Chloride Level 104 mEQ/L (98-107) Carbon Dioxide Level 26 mEQ/L (20-30) Anion Gap 10 (5-15) Blood Urea Nitrogen 6 mg/dL (7-23) L Creatinine 0.5 mg/dL (0.5-0.9) Estimat Glomerular Filtration Rate > 60 mL/min (>60) Glucose Level 85 mg/dL (74-106) Calcium Level 8.5 mg/dL (8.6-10.2) L Total Bilirubin 0.3 mg/dL (0.0-1.2) Aspartate Amino Transf (AST/SGOT) 27 U/L (5-40) Alanine Aminotransferase (ALT/SGPT) 20 U/L (3-33) Alkaline Phosphatase 51 U/L (35-104) Total Protein 5.5 g/dL (6.6-8.7) L Albumin 3.5 g/dL (3.5-5.2) Globulin 2.0 g/dL Albumin/Globulin Ratio 1.7 (1.0-2.7) Studies Pre-op Studies: EKG - sr Risk Assessment & Plan Assessment: ASA II Plan: MAC Status Change Before Surgery: No Pre-Antibiotics Drug: NBettyA NAKITA DEL ROSARIO M.D. Mar 10, 2017 13:17
--- NOTE | 2017-03-10 13:17 | Immediate Post-Op Evaluation ---
Immediate Post-Op Evalulation Immediate Post-Op Evalulation Procedure: EGD Date of Evaluation: Mar 10, 2017 IV Fluids: 300 Blood Products: 0 Estimated Blood Loss: 0 Urinary Output: 0 Blood Pressure Systolic: 110 Blood Pressure Diastolic: 79 Pulse Rate: 71 Respiratory Rate: 16 O2 Sat by Pulse Oximetry: 100 Temperature (Fahrenheit): 97.1 Pain Score (1-10): 0 Nausea: No Vomiting: No Complications 0 Patient Status: awake, patent, none Hydration Status: adequate Drug: N//A NAKITA DEL ROSARIO M.D. Mar 10, 2017 13:17
--- NOTE | 2017-03-10 13:18 | 48 Hour Post Anesthesia Eval ---
Post Anesthesia Evaluation Procedure: EGD Date of Evaluation: Mar 10, 2017 Time of Evaluation: 19:43 Blood Pressure Systolic: 114 0: 70 Pulse Rate: 56 Respiratory Rate: 20 Temperature (Fahrenheit): 98.5 O2 Sat by Pulse Oximetry: 98 Airway: patent Nausea: No Vomiting: No Pain Intensity: 0 Hydration Status: adequate Cardiopulmonary Status: at baseline Mental Status/LOC: patient returned to baseline Post-Anesthesia Complications: 0 Follow-up care needed: N/A - further care as per primary team NAKITA DEL ROSARIO M.D. Mar 10, 2017 13:18
[2017-03-10 14:10] LABS: BASOPHILS % (AUTO) 1.2 % (0.0-2.0); EOSINOPHILS % (AUTO) 4.2 % (0.0-3.0); LYMPHOCYTES % (AUTO) 37.9 % (20.0-45.0); MEAN CORPUSCULAR HEMOGLOBIN 30.7 PG (27.0-31.0); MEAN CORPUSCULAR HGB CONC 31.9 G/DL (32.0-36.0); MEAN CORPUSCULAR VOLUME 96 FL (80-99); MEAN PLATELET VOLUME 9.4 FL (6.5-10.1); MONOCYTES % (AUTO) 7.2 % (1.0-10.0); NEUTROPHILS % (AUTO) 49.6 % (45.0-75.0); PLATELET COUNT 136 K/UL (150-450); RED BLOOD COUNT 4.07 M/UL (4.20-5.40); RED CELL DISTRIBUTION WIDTH 14.3 % (11.6-14.8)
--- NOTE | 2017-03-10 17:44 | Cardiology Report ---
APPROVED REPORT EKG Measurement Heart [id number] Sinus bradycardia Possible Left atrial enlargement Septal infarct, age undetermined Abnormal ECG
--- NOTE | 2017-03-10 18:30 | Procedure Note ---
DATE OF PROCEDURE: 03/10/2017 SURGEON: Sacha Guerra M.D. PROCEDURE: Upper endoscopy with biopsy. ANESTHESIOLOGIST: Karen Chris M.D. INSTRUMENT: Olympus adult flexible upper endoscope. INDICATION: Upper gastrointestinal bleeding. REASON FOR PROCEDURE: The procedure, risks, benefits, and possible consequences, including hemorrhage, aspiration, perforation and infection, and alternative treatments, were explained to the patient/legal guardian by Dr. Sacha Guerra and the patient/legal guardian understood and accepted these risks. PROCEDURE: After informed consent was obtained and the patient was adequately sedated, Olympus upper endoscope was advanced from the mouth, into the esophagus, into the stomach and the patient had partial antrectomy. Then, scope was advanced to the jejunum. There is no active upper gastrointestinal bleeding at this time. There was a small polyp in the gastric body, which was biopsied. The patient had evidence of small hiatal hernia. We advanced the scope into the jejunum where the prior clip was seen. Clip was still holding. There was no active bleeding at this time. No obvious ulceration. No obvious visible vessel. The patient tolerated the procedure well without any complication. SUMMARY OF FINDINGS: 1. Small hiatal hernia. 2. Gastric polyps, status post biopsy. 3. History of partial antrectomy. 4. Clip seen in the jejunum without any active bleeding at this time. RECOMMENDATIONS: The patient had a stable hemoglobin and hematocrit since admission, most probably the blood was seen most probably from prior bleeding. Plan to resume diet and monitor labs. Follow up biopsy results. Possible discharge if the patient is stable. I want to thank, Dr. Treadwell, for this kind referral. Sacha Guerra M.D. DR: JENNY JOB#: [id number] CC: Mariya Treadwell M.D.; Fax#: [phone]
[2017-03-10 19:57] LABS: EOSINOPHILS % (AUTO) 3.3 % (0.0-3.0); LYMPHOCYTES % (AUTO) 23.4 % (20.0-45.0); MEAN CORPUSCULAR HGB CONC 32.8 G/DL (32.0-36.0); MEAN CORPUSCULAR VOLUME 94 FL (80-99); MEAN PLATELET VOLUME 7.4 FL (6.5-10.1); MONOCYTES % (AUTO) 5.3 % (1.0-10.0); PLATELET COUNT 139 K/UL (150-450); RED BLOOD COUNT 3.41 M/UL (4.20-5.40); RED CELL DISTRIBUTION WIDTH 14.2 % (11.6-14.8); WHITE BLOOD COUNT 5.8 K/UL (4.8-10.8)
[2017-03-11] VITALS: BP 98/64
[2017-03-11] MEDS: HYDROmorphone 1mg/ml Carpuject IVP PRN ×3 (03:40→12:10)
[2017-03-11] MEDS: Octreotide Acetate 500 MCG in Sodium Chloride 499 ML IV SCH ×2 (03:44→13:45)
[2017-03-11 04:00] VITALS: BP 103/67
[2017-03-11 05:47] LABS: BASOPHILS % (AUTO) 0.6 % (0.0-2.0); EOSINOPHILS % (AUTO) 1.5 % (0.0-3.0); LYMPHOCYTES % (AUTO) 17.9 % (20.0-45.0); MEAN CORPUSCULAR HEMOGLOBIN 31.1 PG (27.0-31.0); MEAN CORPUSCULAR HGB CONC 32.7 G/DL (32.0-36.0); MEAN CORPUSCULAR VOLUME 95 FL (80-99); MEAN PLATELET VOLUME 8.9 FL (6.5-10.1); MONOCYTES % (AUTO) 4.7 % (1.0-10.0); NEUTROPHILS % (AUTO) 75.4 % (45.0-75.0); PLATELET COUNT 135 K/UL (150-450); RED BLOOD COUNT 3.63 M/UL (4.20-5.40); WHITE BLOOD COUNT 6.7 K/UL (4.8-10.8)
[2017-03-11] MEDS: ALPRAZolam 0.25mg tab ORAL SCH (06:08)
[2017-03-11 06:15] LABS: ANION GAP 13 (5-15); CALCIUM 8.3 mg/dL (8.6-10.2); CARBON DIOXIDE 26 mEQ/L (20-30); CHLORIDE 104 mEQ/L (98-107); CREATININE 0.5 mg/dL (0.5-0.9); GLOMERULAR FILTRATION RATE > 60 mL/min (>60); HEMOLYSIS 8; POTASSIUM 4.3 mEQ/L (3.4-4.9); SODIUM 143 mEQ/L (135-145)
[2017-03-11 08:00] VITALS: BP 110/67
--- NOTE | 2017-03-11 11:19 | GI Progress Note ---
Assessment/Plan Problems: (1) UGIB (upper gastrointestinal bleed) ICD Codes: K92.2 - Gastrointestinal hemorrhage, unspecified SNOMED: 38268841 (2) GIB (gastrointestinal bleeding) ICD Codes: K92.2 - Gastrointestinal hemorrhage, unspecified SNOMED: 67109691 (3) Anastomotic ulcer ICD Codes: K28.9 - Anastomotic ulcer SNOMED: 15776096 Status: unchanged Status Narrative Discussed with Dr. Guerra. Assessment/Plan SUMMARY OF FINDINGS: 1. Small hiatal hernia. 2. Gastric polyps, status post biopsy. 3. History of partial antrectomy. 4. Clip seen in the jejunum without any active bleeding at this time. stable H&H RECOMMENDATIONS: ok for dc per GI standpoint once pain and nausea controlled resume diet zofran prn prn transfusion pain mgmt fu bx for H. Pylori fu labs Subjective Subjective abdominal pain 10/10 nausea only Objective Last 24 Hour Vital Signs Date Time Temp Pulse Resp B/P Pulse Ox O2 Delivery O2 Flow Rate FiO2 03/11/17 08:00 61 03/11/17 08:00 98.3 69 21 110/67 98 Room Air 03/11/17 04:10 98.1 03/11/17 04:00 63 03/11/17 04:00 98.0 67 20 103/67 94 Room Air 03/11/17 00:10 55 03/11/17 00:00 98.1 65 18 98/64 97 Room Air 03/10/17 20:00 98.5 66 20 100/67 97 Room Air 03/10/17 19:44 56 20 98 03/10/17 19:43 71 16 100 03/10/17 19:39 64 03/10/17 16:00 53 03/10/17 16:00 98.5 56 20 114/70 98 Room Air 03/10/17 12:50 97.9 59 18 110/75 98 Room Air 03/10/17 12:49 47 03/10/17 12:42 57 18 107/72 98 Room Air 03/10/17 12:37 60 18 107/68 96 Nasal Cannula 3.0 03/10/17 12:32 97.6 52 18 95/54 96 Nasal Cannula 3.0 03/10/17 11:45 97.9 86 19 122/74 96 Room Air Intake and Output 03/10/17 03/11/17 19:00 07:00 Intake Total 800 ml 925 ml Balance 800 ml 925 ml Intake Oral 375 ml IV Total 800 ml 550 ml # Voids 2 2 Laboratory Tests Test 03/10/17 13:45 03/10/17 19:45 03/11/17 03:40 White Blood Count 5.0 K/UL (4.8-10.8) 5.8 K/UL (4.8-10.8) 6.7 K/UL (4.8-10.8) Red Blood Count 4.07 M/UL (4.20-5.40) L 3.41 M/UL (4.20-5.40) L 3.63 M/UL (4.20-5.40) L Hemoglobin 12.5 G/DL (12.0-16.0) 10.6 G/DL (12.0-16.0) L 11.3 G/DL (12.0-16.0) L Hematocrit 39.2 % (37.0-47.0) 32.2 % (37.0-47.0) L 34.5 % (37.0-47.0) L Mean Corpuscular Volume 96 FL (80-99) 94 FL (80-99) 95 FL (80-99) Mean Corpuscular Hemoglobin 30.7 PG (27.0-31.0) 31.0 PG (27.0-31.0) 31.1 PG (27.0-31.0) H Mean Corpuscular Hemoglobin Concent 31.9 G/DL (32.0-36.0) L 32.8 G/DL (32.0-36.0) 32.7 G/DL (32.0-36.0) Red Cell Distribution Width 14.3 % (11.6-14.8) 14.2 % (11.6-14.8) 14.0 % (11.6-14.8) Platelet Count 136 K/UL (150-450) L 139 K/UL (150-450) L 135 K/UL (150-450) L Mean Platelet Volume 9.4 FL (6.5-10.1) 7.4 FL (6.5-10.1) 8.9 FL (6.5-10.1) Neutrophils (%) (Auto) 49.6 % (45.0-75.0) 67.0 % (45.0-75.0) 75.4 % (45.0-75.0) H Lymphocytes (%) (Auto) 37.9 % (20.0-45.0) 23.4 % (20.0-45.0) 17.9 % (20.0-45.0) L Monocytes (%) (Auto) 7.2 % (1.0-10.0) 5.3 % (1.0-10.0) 4.7 % (1.0-10.0) Eosinophils (%) (Auto) 4.2 % (0.0-3.0) H 3.3 % (0.0-3.0) H 1.5 % (0.0-3.0) Basophils (%) (Auto) 1.2 % (0.0-2.0) 1.0 % (0.0-2.0) 0.6 % (0.0-2.0) Sodium Level 143 mEQ/L (135-145) Potassium Level 4.3 mEQ/L (3.4-4.9) Chloride Level 104 mEQ/L (98-107) Carbon Dioxide Level 26 mEQ/L (20-30) Anion Gap 13 (5-15) Blood Urea Nitrogen 10 mg/dL (7-23) Creatinine 0.5 mg/dL (0.5-0.9) Estimat Glomerular Filtration Rate > 60 mL/min (>60) Glucose Level 71 mg/dL (74-106) L Calcium Level 8.3 mg/dL (8.6-10.2) L Helicobacter pylori IgG Antibody Pending Height (Feet): 5 Height (Inches): 9.00 Weight (Pounds): 130 General Appearance: no apparent distress, thin Cardiovascular: normal rate Respiratory/Chest: normal breath sounds, no respiratory distress Abdominal Exam: normal bowel sounds, non tender, soft Extremities: normal range of motion Yue Cristina N.P. Mar 11, 2017 11:19
[2017-03-11 12:00] VITALS: BP 95/61
--- NOTE | 2017-03-11 12:19 | General Progress Note ---
Assessment/Plan Assessment/Plan GI Findings: 1. Small hiatal hernia. 2. Gastric polyps, status post biopsy. 3. History of partial antrectomy. 4. Clip seen in the jejunum without any active bleeding at this time. stable H&H Stable for DC Asking for narcotics. Told her to come to my office tomorrow. CLAUDY CasonAspers IPA Physician advisor Subjective Allergies: Coded Allergies: MEPERIDINE (Verified Allergy, Intermediate, Hives, 10/18/12) COPIED FROM UNCODED SECTION PANTOPRAZOLE (Verified Allergy, Intermediate, 03/08/17) MORPHINE (Verified Allergy, Unknown, ITCHING, 03/08/17) METOCLOPRAMIDE (Verified Adverse Reaction, Intermediate, "MY MUSCLE MUSCLE ARE FREEZING UP", 10/18/12) COPIED FROM UNCODED SECTION Subjective No new c/o. EGD + GI noted. No active bleeding. Objective Last 24 Hour Vital Signs Date Time Temp Pulse Resp B/P Pulse Ox O2 Delivery O2 Flow Rate FiO2 03/11/17 08:00 61 03/11/17 08:00 98.3 69 21 110/67 98 Room Air 03/11/17 04:10 98.1 03/11/17 04:00 63 03/11/17 04:00 98.0 67 20 103/67 94 Room Air 03/11/17 00:10 55 03/11/17 00:00 98.1 65 18 98/64 97 Room Air 03/10/17 20:00 98.5 66 20 100/67 97 Room Air 03/10/17 19:44 56 20 98 03/10/17 19:43 71 16 100 03/10/17 19:39 64 03/10/17 16:00 53 03/10/17 16:00 98.5 56 20 114/70 98 Room Air 03/10/17 12:50 97.9 59 18 110/75 98 Room Air 03/10/17 12:49 47 03/10/17 12:42 57 18 107/72 98 Room Air 03/10/17 12:37 60 18 107/68 96 Nasal Cannula 3.0 03/10/17 12:32 97.6 52 18 95/54 96 Nasal Cannula 3.0 Intake and Output 03/10/17 03/11/17 19:00 07:00 Intake Total 800 ml 925 ml Balance 800 ml 925 ml Intake Oral 375 ml IV Total 800 ml 550 ml # Voids 2 2 Laboratory Tests 03/10/17 13:45: White Blood Count 5.0, Red Blood Count 4.07L, Hemoglobin 12.5, Hematocrit 39.2, Mean Corpuscular Volume 96, Mean Corpuscular Hemoglobin 30.7, Mean Corpuscular Hemoglobin Concent 31.9L, Red Cell Distribution Width 14.3, Platelet Count 136L , Mean Platelet Volume 9.4, Neutrophils (%) (Auto) 49.6, Lymphocytes (%) (Auto) 37.9, Monocytes (%) (Auto) 7.2, Eosinophils (%) (Auto) 4.2H, Basophils (%) (Auto ) 1.2 03/10/17 19:45: White Blood Count 5.8, Red Blood Count 3.41L, Hemoglobin 10.6L, Hematocrit 32.2L , Mean Corpuscular Volume 94, Mean Corpuscular Hemoglobin 31.0, Mean Corpuscular Hemoglobin Concent 32.8, Red Cell Distribution Width 14.2, Platelet Count 139L, Mean Platelet Volume 7.4, Neutrophils (%) (Auto) 67.0, Lymphocytes ( %) (Auto) 23.4, Monocytes (%) (Auto) 5.3, Eosinophils (%) (Auto) 3.3H, Basophils (%) (Auto) 1.0 03/11/17 03:40: White Blood Count 6.7, Red Blood Count 3.63L, Hemoglobin 11.3L, Hematocrit 34.5L , Mean Corpuscular Volume 95, Mean Corpuscular Hemoglobin 31.1H, Mean Corpuscular Hemoglobin Concent 32.7, Red Cell Distribution Width 14.0, Platelet Count 135L, Mean Platelet Volume 8.9, Neutrophils (%) (Auto) 75.4H, Lymphocytes (%) (Auto) 17.9L, Monocytes (%) (Auto) 4.7, Eosinophils (%) (Auto) 1.5, Basophils (%) (Auto) 0.6, Sodium Level 143, Potassium Level 4.3, Chloride Level 104, Carbon Dioxide Level 26, Anion Gap 13, Blood Urea Nitrogen 10, Creatinine 0.5, Estimat Glomerular Filtration Rate > 60, Glucose Level 71L, Calcium Level 8.3L, Helicobacter pylori IgG Antibody [Pending] Height (Feet): 5 Height (Inches): 9.00 Weight (Pounds): 130 Objective CV RR Lungs CTA Abd SNT. BS + E No CCE IRENE RUBIO Mar 11, 2017 12:19
[2017-03-11 12:38] LABS: BASOPHILS % (AUTO) 0.9 % (0.0-2.0); EOSINOPHILS % (AUTO) 2.5 % (0.0-3.0); LYMPHOCYTES % (AUTO) 21.5 % (20.0-45.0); MEAN CORPUSCULAR HEMOGLOBIN 29.8 PG (27.0-31.0); MEAN CORPUSCULAR HGB CONC 31.6 G/DL (32.0-36.0); MEAN CORPUSCULAR VOLUME 94 FL (80-99); MONOCYTES % (AUTO) 6.8 % (1.0-10.0); NEUTROPHILS % (AUTO) 68.2 % (45.0-75.0); PLATELET COUNT 141 K/UL (150-450); RED BLOOD COUNT 3.77 M/UL (4.20-5.40); RED CELL DISTRIBUTION WIDTH 14.1 % (11.6-14.8); WHITE BLOOD COUNT 4.4 K/UL (4.8-10.8)
--- NOTE | 2017-03-13 08:02 | Discharge Summary ---
Discharge Summary Hospital Course Date of Admission Mar 09, 2017 at 01:13 Date of Discharge Mar 11, 2017 at 13:40 Admitting Diagnosis upper gastrointestinal bleed HPI Leelee Neves is a 51 year old female who was admitted on Mar 09, 2017 at 01:13 for Upper Gastrointestinal Bleed Hospital Course [id number] Discharge Discharge Disposition Patient was discharged to Home (01) Discharge Diagnoses: Donna Reynaga NP Mar 13, 2017 08:02
--- NOTE | 2017-03-14 00:45 | Discharge Summary 2 SIG ---
DATE OF ADMISSION: 03/09/2017 DATE OF DISCHARGE: 03/11/2017 ELEMENT BURNER: Sacha Guerra M.D. BRIEF HOSPITAL COURSE: The patient is a 51-year-old female, who was just discharged from [facility] two days prior after admission for GI bleed, presented here to [facility] for complaints of abdominal pain and multiple episodes of hematemesis. On evaluation at ED, H and H was stable, however she continued to have pain and was vomiting blood. She was started on octreotide and was admitted to [facility] upper GI bleed. Dr. Guerra was consulted and on 03/10/2017, the patient underwent EGD with findings of small hiatal hernia, gastric polyp, partial antrectomy, and a clip seal IP was seen in the jejunum without any active bleeding. Diet was resumed. She was given Zofran p.r.n. CAT scan of the abdomen showed previous cholecystectomy, status post gastric bypass. Hemoglobin and hematocrit had been stable. The patient was then discharged home and advised to follow up as an outpatient. PROCEDURE DONE: EGD with biopsy on 03/10/2017. FINAL DIAGNOSES: 1. Abdominal pain with possible gastrointestinal bleed. 2. Status post esophagogastroduodenoscopy with findings of small hiatal hernia, gastric polyps, partial antrectomy, and clipping the jejunum without any active bleed. Mariya Treadwell M.D. I have been assigned to dictate discharge summary on this account and I was not involved in the patient's management. Donna Reynaga N.P. DR: Gerardo JOB#: [id number] CC:
== END 2017-03-11 13:40 | disposition home or self-care (01) | DRG 379 ==
LOC: ENRESERVTM → ENRESERV → ENRESERVDT → EMR 22:02 → 2W 03-09 01:13 → EDBEDREQSVC 03-09 01:35 → EDBEDREQ 03-09 01:35 → 2W 03-09 02:30
PROC: 0DB68ZX Excision of Stomach, Via Natural or Artificial Opening Endoscopic, Diagnostic (ICD-10-PCS; principal; 2017-03-10 12:21)
DX: K92.2 Gastrointestinal hemorrhage, unspecified (principal); K28.9 Gastrojejunal ulcer, unspecified as acute or chronic, without hemorrhage or perforation; K31.7 Polyp of stomach and duodenum; K44.9 Diaphragmatic hernia without obstruction or gangrene; Z88.6 Allergy status to analgesic agent; Z88.8 Allergy status to other drugs, medicaments and biological substances; F17.200 Nicotine dependence, unspecified, uncomplicated; Z98.84 Bariatric surgery status
CPT/HCPCS: 36415; 74177; 80048; 80053; 81003; 83690; 84484; 85025; 85610; 85730; 86677; 86850; 86900; 86901; 87081; 93005; 94003; 94150; J2405

== ENCOUNTER 2017-04-19 13:35 | Emergency (ER) | payer BC ==
[~2017-04-19] VITALS: Ht 175.3 cm; Wt 56.7 kg
[~2017-04-19 13:35] MED LIST changes: +CARAFATE1 G1 ORAL; +XANAX0.25 MG ORAL; +ZANTAC150 MG ORAL
[2017-04-19 13:40] VITALS: BP 103/63
[2017-04-19] MEDS ORDERED: oxyCODONE HCL/Acetaminophen 5/325mg ORAL ONE (14:30)
[2017-04-19] MEDS ORDERED: Ketorolac 60mg Inj IM ONE (14:30)
--- NOTE | 2017-04-19 14:31 | Emergency Room Report ---
History of Present Illness General Chief Complaint: Pain Source: Patient Present Illness HPI Patient was dragging groceries up stairs and twisted her knee. She heard a pop. It started swelling last night and there was pain. She is unable to bend the knee fully. She was using an immobilizer and ice last night and the swelling went down a bit. She still has pain and limited motion. Is unable to get into the car because of immobilizer. She's had an Coy wrap on after that. The pain is 8/10. It's worse when she tries to bend her knee and weight bear. It's aching and sharp. It does not radiate. The patient had meniscal surgery a month ago. She was just finishing up a physical therapy. She's not been able to go back to work because of prior injury. No fevers, chills, dyspnea, rashes, blood thinners, cough, hemoptysis. She is decreasing her smoking. 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 Reviewed Nursing Documentation: PMH: Agreed, PSxH: Agreed Nursing Documentation-PMH Hx Cardiac Problems: No Hx Hypertension: No Hx Asthma: No Hx COPD: No Hx Diabetes: No Hx Cancer: No Hx Gastrointestinal Problems: Yes - ulcer Hx Dialysis: No Hx Neurological Problems: No Hx Cerebrovascular Accident: No Hx Transient Ischemic Attacks: No Hx Dementia: No Hx Alzheimer's Disease: No Hx Parkinson's Disease: No Hx Meningitis: No Hx Encephalitis: No Hx Seizures: No Hx Epilepsy: No Hx Multiple Sclerosis: No Hx Cerebral Palsy: No Hx Amyotrophic Lat Sclerosis: No Hx Guillian-[place] Syndrome: No Hx Paralysis: No Hx Peripheral Neuropathy: No Hx Spinal Cord Injury: No Hx Head Trauma: No Hx Traumatic Brain Injury: No Hx Memory Loss: No Hx Concentration Difficulty: No Hx Speech Problem: No Hx Tremors: No Hx Vertigo: No Hx Dizziness: No Hx Syncope: No Hx Headaches: Yes - POST SUBDURAL HEMATOMA REMOVAL Hx Aphasia: No Hx Dysphasia: No Hx Numbness: No Hx Weakness: No Hx Fatigue: No Hx Neurologic Surgery: Yes - HAD SUBDURAL HEMATOMA REMOVED Hx Brain Shunt: No Review of Systems Constitutional: Denies: fever Respiratory: Denies: shortness of breath Cardiovascular: Denies: chest pain Gastrointestinal: Denies: nausea Musculoskeletal: Reports: see HPI Skin: Denies: rash Psychiatric: Reports: depressed feelings Neurological: Denies: numbness All Other Systems: negative except mentioned in HPI Physical Exam Vital Signs Date Time Temp Pulse Resp B/P (MAP) Pulse Ox O2 Delivery O2 Flow Rate FiO2 04/19/17 13:40 98.2 95 15 103/63 99 Room Air Sp02 EP Interpretation: reviewed, normal General Appearance: well appearing, no apparent distress, GCS 15 Head: normocephalic, atraumatic Eyes: bilateral eye normal inspection, bilateral eye PERRL ENT: hearing grossly normal, normal voice, moist mucus membranes Neck: full range of motion, supple Respiratory: no respiratory distress, speaking full sentences Cardiovascular #2: 2+ dorsalis pedis (L) Musculoskeletal: back normal, digits/nails normal, decreased range of mation, swelling, other - Medial tenderness. Lateral laxity of ligamentous still intact. Minimal effusion. Minimal drawer sign. Positive Apley's compression medially appeared Neurologic: alert, motor strength/tone normal, sensory intact, grossly normal Psychiatric: mood/affect normal - tearful Skin: no rash Medical Decision Making Diagnostic Impression: Primary Impression: Cartilage tear Additional Impression: Knee sprain Qualified Codes: S83.412A - Sprain of medial collateral ligament of left knee , initial encounter ER Course The patient presents with a left knee injury. She had recent surgery. Her exam is consistent with a meniscal injury and medial collateral ligament sprain at this time. X-rays are indicated to exclude fracture. In addition she'll be treated with pain medication and stabilization the knee. She does have an immobilizer and crutches at home. X-ray does not reveal fracture. There is a small effusion. Coy wrap is applied by me and tension and position excellent - neurovascular check by me normal. Patient is stable for outpatient observation and treatment. Other X-Ray Diagnostic Results Other X-Ray Diagnostic Results : X-Ray ordered: L knee # of Views/Limited Vs Complete: 3 View Indication: Pain EP Interpretation: Yes Interpretation: no dislocation, no fractures, other - STS Impression: Other Interpreting ER Provider: Electronically signed by Salazar Barboza MD Last Vital Signs Date Time Temp Pulse Resp B/P (MAP) Pulse Ox O2 Delivery O2 Flow Rate FiO2 04/19/17 15:15 98.2 95 15 103/63 99 Room Air Status: improved Disposition: HOME, SELF-CARE Condition: Improved Scripts Hydrocodone Bit/Acetaminophen 5-325* (NORCO 5-325*) 1 Each Tablet 1 TAB ORAL Q6H Y for For Pain, #16 TAB 0 Refills Prov: Salazar Barboza M.D. 04/19/17 Ibuprofen* (MOTRIN*) 600 Mg Tablet 600 MG ORAL Q6H Y for For Pain, #20 TAB Prov: Salazar Barboza M.D. 04/19/17 Salazar Barboza M.D. Apr 19, 2017 14:31
[2017-04-19] MEDS ORDERED: IBUPROFEN600 MG ORAL (15:06)
[2017-04-19] MEDS ORDERED: NORCO 5-325 TA1 EACH ORAL (15:06)
--- NOTE | 2017-04-20 11:58 | Diagnostic Imaging Report ---
Indication: Pain 3 views of the left knee were obtained. Findings: No acute fracture, malalignment, or joint effusion are identified. Joint space is relatively well-maintained. Bone mineralization is within normal limits for age. Impression: Negative exam
== END 2017-04-19 15:15 | disposition home or self-care (01) ==
LOC: EDBD 14:30 → EMR 14:30
DX: S83.412A Sprain of medial collateral ligament of left knee, initial encounter (principal); F17.200 Nicotine dependence, unspecified, uncomplicated; Z88.8 Allergy status to other drugs, medicaments and biological substances; Z88.6 Allergy status to analgesic agent; M25.462 Effusion, left knee; X50.1XXA Overexertion from prolonged static or awkward postures, initial encounter; Y92.9 Unspecified place or not applicable
CPT/HCPCS: 96372; 99284

== ENCOUNTER 2017-05-22 14:36 | Emergency (ER) | payer BC ==
[~2017-05-22] VITALS: Ht 175.3 cm; Wt 56.7 kg
[~2017-05-22 14:36] MED LIST changes: +NORCO 5-325 TA1 EACH ORAL
--- NOTE | 2017-05-22 14:57 | Emergency Room Report ---
History of Present Illness General Chief Complaint: Gastrointestinal Bleed Source: Patient Present Illness HPI Patient 51-year-old female who presented after increased hematemesis. The patient stated that she had been having increased abdominal pain. Patient had prior history of partial gastrectomy after ulcer. Patient had recently had endoscopy and had a clipping of bleeding area in her stomach. Patient was noted to have a prior history of a ventral hernia.She been previously seen and evaluated at [facility]. Patient denies any recent NSAID use. She reports taking Carafate as well as Pepcid. Allergies: Coded Allergies: MEPERIDINE (Verified Allergy, Intermediate, Hives, 10/18/12) COPIED FROM UNCODED SECTION PANTOPRAZOLE (Verified Allergy, Intermediate, 03/08/17) MORPHINE (Verified Allergy, Unknown, ITCHING, 03/08/17) METOCLOPRAMIDE (Verified Adverse Reaction, Intermediate, "MY MUSCLE MUSCLE ARE FREEZING UP", 10/18/12) COPIED FROM UNCODED SECTION Patient History Past Medical History: see triage record Reviewed Nursing Documentation: PMH: Agreed, PSxH: Agreed Nursing Documentation-PMH Hx Cardiac Problems: No Hx Hypertension: No Hx Asthma: No Hx COPD: No Hx Diabetes: No Hx Cancer: No Hx Gastrointestinal Problems: Yes - ulcer, gastrectomy Hx Dialysis: No Hx Neurological Problems: No Hx Cerebrovascular Accident: No Hx Transient Ischemic Attacks: No Hx Dementia: No Hx Alzheimer's Disease: No Hx Parkinson's Disease: No Hx Meningitis: No Hx Encephalitis: No Hx Seizures: No Hx Epilepsy: No Hx Multiple Sclerosis: No Hx Cerebral Palsy: No Hx Amyotrophic Lat Sclerosis: No Hx Guillian-[place] Syndrome: No Hx Paralysis: No Hx Peripheral Neuropathy: No Hx Spinal Cord Injury: No Hx Head Trauma: No Hx Traumatic Brain Injury: No Hx Memory Loss: No Hx Concentration Difficulty: No Hx Speech Problem: No Hx Tremors: No Hx Vertigo: No Hx Dizziness: No Hx Syncope: No Hx Headaches: Yes - POST SUBDURAL HEMATOMA REMOVAL Hx Aphasia: No Hx Dysphasia: No Hx Numbness: No Hx Weakness: No Hx Fatigue: No Hx Neurologic Surgery: Yes - HAD SUBDURAL HEMATOMA REMOVED Hx Brain Shunt: No Review of Systems All Other Systems: negative except mentioned in HPI Physical Exam Vital Signs Date Time Temp Pulse Resp B/P (MAP) Pulse Ox O2 Delivery O2 Flow Rate FiO2 05/22/17 14:39 97.5 86 20 103/72 99 Room Air Sp02 EP Interpretation: reviewed, normal General Appearance: normal inspection, well appearing, no apparent distress, alert, GCS 15 Head: atraumatic ENT: normal ENT inspection, hearing grossly normal, normal voice Neck: normal inspection, full range of motion, supple, no bony tend Respiratory: normal inspection, lungs clear, normal breath sounds, no respiratory distress, no retraction, no wheezing Cardiovascular #1: regular rate, rhythm, no edema Gastrointestinal: normal inspection, normal bowel sounds, non tender, soft, no guarding, no hernia Genitourinary: no CVA tenderness Musculoskeletal: normal inspection, back normal, normal range of motion Neurologic: normal inspection, alert, oriented x3, responsive, sustainable agriculture specialist III-XII nml as tested, speech normal Psychiatric: normal inspection, judgement/insight normal, mood/affect normal Skin: normal inspection, normal color, no rash Medical Decision Making Diagnostic Impression: Primary Impression: GIB (gastrointestinal bleeding) ER Course Patient presented for abdominal pain. Differential diagnoses included ischemic bowel, appendicitis, perforated viscus, abdominal aortic aneurysm, inferior myocardial infarction, viral gastroenteritis. Because of complexity of patient' s case laboratory testing and imaging studies were ordered. The patient was noted to have prior history of upper GI bleeding from ulcer disease. The patient was given IV acid blockers as well asIV fluids.The patient was noted to have the same hemoglobin his prior levels. The patient was offered nonnarcotic pain medication. The patient requested Dilaudid given the patient's hematemesis felt this would be unsafe. The patient was advised risk benefits alternatives of leaving AGAINST MEDICAL ADVICE and he indicated understanding and all questions are answered patient still continued want to leave and signed AGAINST MEDICAL ADVICE. Despite risks including but not limited to disability and worsening of current lifestyle. Last Vital Signs Date Time Temp Pulse Resp B/P (MAP) Pulse Ox O2 Delivery O2 Flow Rate FiO2 05/22/17 14:39 97.5 86 20 103/72 99 Room Air Status: unchanged Disposition: AGAINST MEDICAL ADVICE Condition: Serious Keyur Macias May 22, 2017 14:57
[2017-05-22 15:00] VITALS: BP 91/62
[2017-05-22 15:52] LABS: TROPONIN I < 0.30 ng/mL (<=0.30)
[2017-05-22 15:53] LABS: BASOPHILS % (AUTO) 1.6 % (0.0-2.0); EOSINOPHILS % (AUTO) 1.9 % (0.0-3.0); LYMPHOCYTES % (AUTO) 47.4 % (20.0-45.0); MEAN CORPUSCULAR HEMOGLOBIN 29.8 PG (27.0-31.0); MEAN CORPUSCULAR HGB CONC 31.4 G/DL (32.0-36.0); MEAN CORPUSCULAR VOLUME 95 FL (80-99); MEAN PLATELET VOLUME 7.6 FL (6.5-10.1); NEUTROPHILS % (AUTO) 45.1 % (45.0-75.0); PLATELET COUNT 149 K/UL (150-450); RED BLOOD COUNT 3.82 M/UL (4.20-5.40); RED CELL DISTRIBUTION WIDTH 13.5 % (11.6-14.8); WHITE BLOOD COUNT 4.4 K/UL (4.8-10.8)
[2017-05-22 15:55] LABS: ALANINE AMINOTRANSFERASE 15 U/L (3-33); ASPARTATE AMINO TRANSFERASE 26 U/L (5-40); CALCIUM 9.4 mg/dL (8.6-10.2); CARBON DIOXIDE 24 mEQ/L (20-30); CREATININE 0.6 mg/dL (0.5-0.9); GLOMERULAR FILTRATION RATE > 60 mL/min (>60); TOTAL PROTEIN 6.5 g/dL (6.6-8.7)
[2017-05-22 15:56] LABS: ALBUMIN/GLOBULIN RATIO 1.9 (1.0-2.7); ANION GAP 13 (5-15); CHLORIDE 104 mEQ/L (98-107); HEMOLYSIS 23; LIPASE 23 U/L (< 60); POTASSIUM 4.4 mEQ/L (3.4-4.9); SODIUM 141 mEQ/L (135-145)
[2017-05-22 16:00] VITALS: BP 93/63
[2017-05-22 16:44] LABS: PROTHROMBIN TIME 10.1 SEC (9.30-11.50)
[2017-05-22] MEDS ORDERED: DiphenhydrAMINE 50mg/ml Inj IVP ONE (17:00)
[2017-05-22 17:20] VITALS: BP 93/63
--- NOTE | 2017-06-14 17:50 | Cardiology Report ---
APPROVED REPORT EKG Measurement Heart [id number] Normal sinus rhythm Normal ECG
== END 2017-05-22 17:19 | disposition left against medical advice (07) ==
LOC: EMR 14:55
DX: K92.2 Gastrointestinal hemorrhage, unspecified (principal); Z88.5 Allergy status to narcotic agent; Z88.8 Allergy status to other drugs, medicaments and biological substances; K28.9 Gastrojejunal ulcer, unspecified as acute or chronic, without hemorrhage or perforation; R51 Headache; Z86.69 Personal history of other diseases of the nervous system and sense organs; K92.0 Hematemesis; R10.9 Unspecified abdominal pain; Z53.21 Procedure and treatment not carried out due to patient leaving prior to being seen by health care provider
CPT/HCPCS: 80053; 83690; 84484; 85025; 85610; 85730; 93005; 96374; 96375; 99283; S0028

== ENCOUNTER 2017-08-23 11:10 | Emergency (ER) | payer BC, MEDICAID ==
[~2017-08-23] VITALS: Ht 175.3 cm; Wt 56.7 kg
[2017-08-23 11:35] VITALS: BP 111/64
[2017-08-23 12:29] LABS: BASOPHILS % (AUTO) 1.4 % (0.0-2.0); EOSINOPHILS % (AUTO) 2.3 % (0.0-3.0); HEMATOCRIT 37.2 % (37.0-47.0); HEMOGLOBIN 11.4 G/DL (12.0-16.0); LYMPHOCYTES % (AUTO) 37.2 % (20.0-45.0); MEAN CORPUSCULAR VOLUME 84 FL (80-99); MONOCYTES % (AUTO) 6.8 % (1.0-10.0); NEUTROPHILS % (AUTO) 52.3 % (45.0-75.0); PLATELET COUNT 237 K/UL (150-450); RED BLOOD COUNT 4.42 M/UL (4.20-5.40); RED CELL DISTRIBUTION WIDTH 14.5 % (11.6-14.8); WHITE BLOOD COUNT 4.3 K/UL (4.8-10.8)
[2017-08-23 12:43] VITALS: BP 111/64
[2017-08-23 12:44] LABS: ANION GAP 13 mmol/L (5-15); BLOOD UREA NITROGEN 11 mg/dL (7-18); CARBON DIOXIDE 21 MMOL/L (21-32); CHLORIDE 106 MMOL/L (98-107); CREATININE 0.6 MG/DL (0.55-1.30); POTASSIUM 4.3 MMOL/L (3.5-5.1); SODIUM 140 MMOL/L (136-145)
[2017-08-23] MEDS ORDERED: Hydromorphone 0.5mg/0.5ml inj IVP ONE (12:45)
[2017-08-23 12:47] LABS: ALANINE AMINOTRANSFERASE 50 U/L (12-78); ALBUMIN 3.9 G/DL (3.4-5.0); ALBUMIN/GLOBULIN RATIO 1.1 (1.0-2.7); ALKALINE PHOSPHATASE 123 U/L (46-116); ASPARTATE AMINO TRANSFERASE 35 U/L (15-37); BILIRUBIN,TOTAL 0.3 MG/DL (0.2-1.0)
[2017-08-23] MEDS ORDERED: ZOFRAN ODT4 MG ORAL (13:14)
[2017-08-23 13:27] VITALS: BP 111/64
--- NOTE | 2017-08-23 13:31 | Emergency Room Report ---
History of Present Illness General Chief Complaint: Gastrointestinal Bleed Source: Patient Present Illness HPI Patient presents with complaints of epigastric abdominal pain Patient reports that on one vomiting episode she has noticed some trace of blood Denies any lower abdominal pain or rectal bleeding Denies any flank pain Patient provide significant history of peptic ulcer disease and gastric bypass Denies any neck pain or photophobia denies any recent travel denies any trauma pain is 6/10 epigastric Allergies: Coded Allergies: MEPERIDINE (Verified Allergy, Intermediate, Hives, 10/18/12) COPIED FROM UNCODED SECTION PANTOPRAZOLE (Verified Allergy, Intermediate, 03/08/17) MORPHINE (Verified Allergy, Unknown, ITCHING, 03/08/17) METOCLOPRAMIDE (Verified Adverse Reaction, Intermediate, "MY MUSCLE MUSCLE ARE FREEZING UP", 10/18/12) COPIED FROM UNCODED SECTION Patient History Past Medical History: see triage record Pertinent Family History: none Last Menstrual Period: na Now: No Reviewed Nursing Documentation: PMH: Agreed, PSxH: Agreed Nursing Documentation-PMH Past Medical History: No History, Except For Hx Cardiac Problems: No Hx Hypertension: No Hx Asthma: No Hx COPD: No Hx Diabetes: No Hx Cancer: No Hx Gastrointestinal Problems: Yes - ulcer, gastrectomy Hx Dialysis: No Hx Neurological Problems: No Hx Cerebrovascular Accident: No Hx Transient Ischemic Attacks: No Hx Dementia: No Hx Alzheimer's Disease: No Hx Parkinson's Disease: No Hx Meningitis: No Hx Encephalitis: No Hx Seizures: No Hx Epilepsy: No Hx Multiple Sclerosis: No Hx Cerebral Palsy: No Hx Amyotrophic Lat Sclerosis: No Hx Guillian-[place] Syndrome: No Hx Paralysis: No Hx Peripheral Neuropathy: No Hx Spinal Cord Injury: No Hx Head Trauma: No Hx Traumatic Brain Injury: No Hx Memory Loss: No Hx Concentration Difficulty: No Hx Speech Problem: No Hx Tremors: No Hx Vertigo: No Hx Dizziness: No Hx Syncope: No Hx Headaches: Yes - POST SUBDURAL HEMATOMA REMOVAL Hx Aphasia: No Hx Dysphasia: No Hx Numbness: No Hx Weakness: No Hx Fatigue: No Hx Neurologic Surgery: Yes - HAD SUBDURAL HEMATOMA REMOVED Hx Brain Shunt: No Review of Systems All Other Systems: negative except mentioned in HPI Physical Exam Vital Signs Date Time Temp Pulse Resp B/P (MAP) Pulse Ox O2 Delivery O2 Flow Rate FiO2 08/23/17 11:13 97.3 115 20 119/68 99 Room Air Sp02 EP Interpretation: reviewed, normal General Appearance: well appearing, no apparent distress Head: normocephalic, atraumatic Eyes: bilateral eye PERRL, bilateral eye EOMI ENT: hearing grossly normal, normal pharynx, TMs + canals normal, uvula midline Neck: full range of motion, supple, no meningismus, no bony tend Respiratory: lungs clear, normal breath sounds, no rhonchi, no respiratory distress, no retraction, no accessory muscle use Cardiovascular #1: normal peripheral pulses, regular rate, rhythm, no edema, no gallop, no JVD, no murmur Gastrointestinal: normal bowel sounds, non tender - On clinical exam however subjectively uncomfortable epigastric region, soft, no mass, no organomegaly, non-distended, no guarding, no hernia, no pulsatile mass, no rebound Genitourinary: no CVA tenderness Musculoskeletal: normal inspection Neurologic: oriented x3, responsive, sole polisher III-XII nml as tested, motor strength/ tone normal, sensory intact Psychiatric: mood/affect normal Skin: normal color, no rash, warm/dry, palpation normal Lymphatic: normal inspection, no adenopathy Medical Decision Making Diagnostic Impression: Primary Impression: abdominal pain ER Course With the history exam and presentation, multiple differentials considered, including but not limited to appendicitis, gastritis, cholecystitis, diverticulitis Patient appears well-hydrated At this time is allergic to morphine reports that Dilaudid has worked in the past Patient on CURES reveals multiple medications other different providers I did discuss this with the patient my concern for this Patient's hemoglobin is the same as a 4 months ago likelihood of acute hemorrhage is low patient maintained in a stable and requires improved outpatient followup Labs Test 08/23/17 12:30 White Blood Count 4.3 K/UL (4.8-10.8) Red Blood Count 4.42 M/UL (4.20-5.40) Hemoglobin 11.4 G/DL (12.0-16.0) Hematocrit 37.2 % (37.0-47.0) Mean Corpuscular Volume 84 FL (80-99) Mean Corpuscular Hemoglobin 25.8 PG (27.0-31.0) Mean Corpuscular Hemoglobin Concent 30.7 G/DL (32.0-36.0) Red Cell Distribution Width 14.5 % (11.6-14.8) Platelet Count 237 K/UL (150-450) Mean Platelet Volume 7.8 FL (6.5-10.1) Neutrophils (%) (Auto) 52.3 % (45.0-75.0) Lymphocytes (%) (Auto) 37.2 % (20.0-45.0) Monocytes (%) (Auto) 6.8 % (1.0-10.0) Eosinophils (%) (Auto) 2.3 % (0.0-3.0) Basophils (%) (Auto) 1.4 % (0.0-2.0) Sodium Level 140 MMOL/L (136-145) Potassium Level 4.3 MMOL/L (3.5-5.1) Chloride Level 106 MMOL/L (98-107) Carbon Dioxide Level 21 MMOL/L (21-32) Anion Gap 13 mmol/L (5-15) Blood Urea Nitrogen 11 mg/dL (7-18) Creatinine 0.6 MG/DL (0.55-1.30) Estimat Glomerular Filtration Rate > 60 mL/min (>60) Glucose Level 66 MG/DL (74-106) Calcium Level 8.0 MG/DL (8.5-10.1) Total Bilirubin 0.3 MG/DL (0.2-1.0) Aspartate Amino Transf (AST/SGOT) 35 U/L (15-37) Alanine Aminotransferase (ALT/SGPT) 50 U/L (12-78) Alkaline Phosphatase 123 U/L (46-116) Total Protein 7.6 G/DL (6.4-8.2) Albumin 3.9 G/DL (3.4-5.0) Globulin 3.7 g/dL Albumin/Globulin Ratio 1.1 (1.0-2.7) Lipase 150 U/L (73-393) Rhythm Strip Diag. Results EP Interpretation: yes Rate: 77 Rhythm: NSR, no PVC's, no ectopy Last Vital Signs Date Time Temp Pulse Resp B/P (MAP) Pulse Ox O2 Delivery O2 Flow Rate FiO2 08/23/17 13:27 97.3 95 8 111/64 99 Room Air Status: improved Disposition: HOME, SELF-CARE Condition: Stable Scripts Ondansetron Odt* (ZOFRAN ODT*) 4 Mg Tab.rapdis 4 MG ORAL Q6H Y for Nausea & Vomiting, #10 TAB 0 Refills Prov: ALISON LOYA D.O. 08/23/17 Referrals: NOT CHOSEN IPA/MD,REFERRING (PCP) Patient Instructions: Abdominal Pain, Adult Additional Instructions: Patient is provided with the discharge instructions notified to follow up with primary doctor in the next 2-3 days otherwise return to the er with any worsening symptoms. Please note that this report is being documented using [employer] technology. This can lead to erroneous entry secondary to incorrect interpretation by the dictating instrument. ALISON LOYA D.O. Aug 23, 2017 13:31
== END 2017-08-23 13:28 | disposition home or self-care (01) ==
LOC: EMR 11:42
DX: R10.13 Epigastric pain (principal); Z87.11 Personal history of peptic ulcer disease; Z98.84 Bariatric surgery status; Z88.6 Allergy status to analgesic agent; Z88.8 Allergy status to other drugs, medicaments and biological substances
CPT/HCPCS: 36415; 80053; 83690; 85025; 96374; 99284; J1170

== ENCOUNTER 2018-10-10 17:46 | Emergency (ER) | payer MEDICAID ==
[~2018-10-10] VITALS: Ht 172.7 cm; Wt 54.4 kg
[~2018-10-10 17:46] MED LIST changes: +ZOFRAN ODT4 MG ORAL
--- NOTE | 2018-10-10 18:09 | NUR ---
ED Nurse Note: Pt states she already took tylenol 1000mg an hour ago. Glenn notified and DC tylenol order.
[2018-10-10 18:13] VITALS: BP 135/80
[2018-10-10] MEDS ORDERED: NORCO 5-325 TA1 EACH ORAL (18:29)
[2018-10-10] MEDS ORDERED: ZOFRAN4 M3 ORAL (18:29)
[2018-10-10 18:39] VITALS: BP 126/70
--- NOTE | 2018-10-10 18:39 | NUR ---
ED Nurse Note: Pt was seen due to headache. Pt is cleared by Health Care Provider for discharge. DC instructions/prescription was given and explained to pt and verbalized understanding of teachings given. All medical devices such as ID band removed. Pt AAO x4, ambulatory and left with all personal belongings.
--- NOTE | 2018-10-10 20:45 | Emergency Room Report ---
History of Present Illness General Chief Complaint: Headache Source: Patient, Medical Record Present Illness HPI The patient is a 53-year-old female presenting for headache and dizziness. She states that a bookshelf fell on her head 3 days prior. She denies loss of consciousness at that time but states that the memory is "a little hazy". She denies falling. Pain is an 8/10 dull ache to the back of the head. Does not radiate. Tylenol mildly helps. The bookshelf fell from approximately 2 feet above her head. She denies other symptoms including nausea, vomiting, blurred vision, neck pain, photophobia Allergies: Coded Allergies: MEPERIDINE (Verified Allergy, Intermediate, Hives, 10/18/12) COPIED FROM UNCODED SECTION PANTOPRAZOLE (Verified Allergy, Intermediate, 03/08/17) MORPHINE (Verified Allergy, Unknown, ITCHING, 03/08/17) TRAMADOL (Verified Allergy, Unknown, 10/10/18) METOCLOPRAMIDE (Verified Adverse Reaction, Intermediate, "MY MUSCLE MUSCLE ARE FREEZING UP", 10/18/12) COPIED FROM UNCODED SECTION Patient History Past Medical History: see triage record Pertinent Family History: none Last Menstrual Period: menopause Reviewed Nursing Documentation: PMH: Agreed; PSxH: Agreed Nursing Documentation-PMH Past Medical History: No History, Except For Hx Cardiac Problems: No Hx Hypertension: No Hx Asthma: No Hx COPD: No Hx Diabetes: No Hx Cancer: No Hx Gastrointestinal Problems: Yes - ulcer, gastrectomy Hx Dialysis: No Hx Neurological Problems: No Hx Cerebrovascular Accident: No Hx Transient Ischemic Attacks: No Hx Dementia: No Hx Alzheimer's Disease: No Hx Parkinson's Disease: No Hx Meningitis: No Hx Encephalitis: No Hx Seizures: No Hx Epilepsy: No Hx Multiple Sclerosis: No Hx Cerebral Palsy: No Hx Amyotrophic Lat Sclerosis: No Hx Guillian-[place]idence Syndrome: No Hx Paralysis: No Hx Peripheral Neuropathy: No Hx Spinal Cord Injury: No Hx Head Trauma: No Hx Traumatic Brain Injury: No Hx Memory Loss: No Hx Concentration Difficulty: No Hx Speech Problem: No Hx Tremors: No Hx Vertigo: No Hx Dizziness: No Hx Syncope: No Hx Headaches: Yes - POST SUBDURAL HEMATOMA REMOVAL Hx Aphasia: No Hx Dysphasia: No Hx Numbness: No Hx Weakness: No Hx Fatigue: No Hx Neurologic Surgery: Yes - HAD SUBDURAL HEMATOMA REMOVED Hx Brain Shunt: No Review of Systems All Other Systems: negative except mentioned in HPI Physical Exam Vital Signs Date Time Temp Pulse Resp B/P (MAP) Pulse Ox O2 Delivery O2 Flow Rate FiO2 10/10/18 17:50 97.7 87 18 122/77 99 Room Air Sp02 EP Interpretation: reviewed, normal General Appearance: no apparent distress, alert, GCS 15, non-toxic Head: normocephalic, atraumatic, other - TTP over the R posterior region Eyes: bilateral eye normal inspection, bilateral eye PERRL, bilateral eye EOMI ENT: hearing grossly normal, normal pharynx, no angioedema, normal voice Neck: full range of motion, no bony tend, supple/symm/no masses Musculoskeletal: back normal, gait/station normal, normal range of motion, non- tender Neurologic: alert, oriented x3, responsive, motor strength/tone normal, sensory intact, speech normal Psychiatric: judgement/insight normal, memory normal, mood/affect normal, no suicidal/homicidal ideation Skin: normal color, no rash, warm/dry, well hydrated Medical Decision Making PA Attestation Dr. Barboza is my supervising physician. Patient management was discussed with my supervising physician Diagnostic Impression: Primary Impression: Concussion Qualified Codes: S06.0X0A - Concussion without loss of consciousness, initial encounter ER Course The patient is a 53-year-old female presenting for headache and dizziness. Differential diagnoses considered but not limited to: Concussion, contusion, intracranial hemorrhage, fracture, among others PE: Vitals stable. NAD Head is normocephalic atraumatic. There is tenderness to palpation over the right posterior occipital region. No crepitus or depressions. PERRL. EOMI Pt will be treated symptomatically. She is given information regarding concussions and given strict ER precautions. She is told to F/U with PCP MIRIAM. Last Vital Signs Date Time Temp Pulse Resp B/P (MAP) Pulse Ox O2 Delivery O2 Flow Rate FiO2 10/10/18 18:39 98.0 88 15 126/70 100 Room Air Status: improved Disposition: HOME, SELF-CARE Condition: Improved Scripts Ondansetron* (ZOFRAN*) 4 Mg Tablet 4 MG ORAL Q6H PRN for Nausea & Vomiting, #15 TAB Prov: INGRID MOMIN P.A. 10/10/18 Hydrocodone Bit/Acetaminophen 5-325* (NORCO 5-325*) 1 Each Tablet 1 TAB ORAL Q6H PRN for For Pain, #10 TAB 0 Refills Prov: INGRID MOMIN 10/10/18 Referrals: NON PHYSICIAN (PCP) Patient Instructions: Head Injury, Adult, Concussion, Adult Additional Instructions: I discussed my findings with the patient. All questions and concerns have been answered. Treatment and medication compliance have been addressed. I advised the patient that they need to follow up with primary doctor as soon as possible. Return to ER if symptoms worsen, new symptoms arise, headache persists or worsens after taking medication, or if needed for any reason. Patient verbalized understanding of discharge instructions. INGRID MOMIN Oct 10, 2018 20:45
== END 2018-10-10 18:39 | disposition home or self-care (01) ==
LOC: EMR 18:05 → EDBD 18:05 → EMR 18:39
DX: S06.0X0A Concussion without loss of consciousness, initial encounter (principal); W20.8XXA Other cause of strike by thrown, projected or falling object, initial encounter; Y92.89 Other specified places as the place of occurrence of the external cause; Z88.5 Allergy status to narcotic agent; Z88.8 Allergy status to other drugs, medicaments and biological substances
CPT/HCPCS: 99282

== ENCOUNTER 2019-01-24 17:48 | Emergency (ER) | payer MEDICAID ==
[~2019-01-24] VITALS: Ht 175.3 cm; Wt 49.9 kg
[~2019-01-24 17:48] MED LIST changes: +ZOFRAN4 M3 ORAL
[2019-01-24 18:15] VITALS: BP 118/81
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
[2019-01-24] MEDS ORDERED: NEXIUM20 MG ORAL (18:20)
[2019-01-24 20:15] VITALS: BP 122/82
[2019-01-24] MEDS ORDERED: HYDROcodone/Acetamin 5/325 tab ORAL ONE (20:15)
[2019-01-24] MEDS ORDERED: Tylenol #3 tab (300mg/30mg) ORAL ONE (20:15)
--- NOTE | 2019-01-24 20:15 | NUR ---
ER DISCHARGE NOTE: Patient is cleared to be discharged per ERMD, pt is aox4, on room air, with stable vital signs. pt was given dc and prescription instructions, pt was able to verbalize understanding, pt id band removed without complications. pt is able to ambulate with steady gait. pt took all belongings.
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
[2019-01-24] MEDS ORDERED: NORCO 5-325 TA1 EACH ORAL (20:21)
[2019-01-24] MEDS ORDERED: ZOFRAN4 M1 SL (20:21)
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
== END 2019-01-24 20:15 | disposition home or self-care (01) ==
LOC: EMR 18:50
DX: S06.0X9A Concussion with loss of consciousness of unspecified duration, initial encounter (principal); V43.62XA Car passenger injured in collision with other type car in traffic accident, initial encounter; Y92.410 Unspecified street and highway as the place of occurrence of the external cause; Z88.6 Allergy status to analgesic agent; Z88.8 Allergy status to other drugs, medicaments and biological substances; Z98.84 Bariatric surgery status
CPT/HCPCS: 70450; 96372; 99284; J2405

== ENCOUNTER 2019-02-11 11:29 | Emergency (ER) | payer MEDICAID ==
[~2019-02-11] VITALS: Ht 175.3 cm; Wt 50.8 kg
[~2019-02-11 11:29] MED LIST changes: +NEXIUM20 MG ORAL; +ZOFRAN4 M1 SL
--- NOTE | 2019-02-11 11:43 | NUR ---
ED Nurse Note: Patient walked into ED c/o pain in the right eye. patient works as a veterinary technologist and reports that animal hair got into her right eye yesterday while working. patient reports burning pain 04/02. patient reports she flushed with NS really well, but now it feels like it's "infected."
[2019-02-11] MEDS ORDERED: Tetracaine 0.5% Opth 4ml Soln RIGHT EYE ONE (11:45)
[2019-02-11] MEDS ORDERED: Fluorescein Strips RIGHT EYE ONE (11:45)
[2019-02-11 11:51] VITALS: BP 108/62
--- NOTE | 2019-02-11 12:39 | Emergency Room Report ---
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 Patient states that yesterday she had gotten some dog hair in her right eye. She states she did irrigate her eye at that time. She states that it was bothering her and then this morning when she woke up her eyes irritated and crusty with discharge. She states that she is unable to keep the eye open secondary to discomfort. Allergies: Coded Allergies: MEPERIDINE (Verified Allergy, Intermediate, Hives, 10/18/12) COPIED FROM UNCODED SECTION PANTOPRAZOLE (Verified Allergy, Intermediate, 03/08/17) MORPHINE (Verified Allergy, Unknown, ITCHING, 03/08/17) TRAMADOL (Verified Allergy, Unknown, 10/10/18) METOCLOPRAMIDE (Verified Adverse Reaction, Intermediate, "MY MUSCLE MUSCLE ARE FREEZING UP", 10/18/12) COPIED FROM UNCODED SECTION Patient History Past Medical History: see triage record, ulcer, GERD Past Surgical History: other - Partial gastrectomy, Subdural hematoma Social History: Reports: smoking; Denies: alcohol use, drug use Last Menstrual Period: menopause Reviewed Nursing Documentation: PMH: Agreed; PSxH: Agreed Nursing Documentation-PMH Past Medical History: No History, Except For Hx Cardiac Problems: No - SUBDURAL HEMATOMA SEP 2009 Hx Hypertension: No Hx Asthma: No Hx COPD: No Hx Diabetes: No Hx Cancer: No Hx Gastrointestinal Problems: Yes - PUD, gastrectomy Hx Dialysis: No Hx Neurological Problems: No Hx Cerebrovascular Accident: No Hx Transient Ischemic Attacks: No Hx Dementia: No Hx Alzheimer's Disease: No Hx Parkinson's Disease: No Hx Meningitis: No Hx Encephalitis: No Hx Seizures: No Hx Epilepsy: No Hx Multiple Sclerosis: No Hx Cerebral Palsy: No Hx Amyotrophic Lat Sclerosis: No Hx Guillian-Margaret Syndrome: No Hx Paralysis: No Hx Peripheral Neuropathy: No Hx Spinal Cord Injury: No Hx Head Trauma: No Hx Traumatic Brain Injury: No Hx Memory Loss: No Hx Concentration Difficulty: No Hx Speech Problem: No Hx Tremors: No Hx Vertigo: No Hx Dizziness: No Hx Syncope: No Hx Headaches: Yes - POST SUBDURAL HEMATOMA REMOVAL Hx Aphasia: No Hx Dysphasia: No Hx Numbness: No Hx Weakness: No Hx Fatigue: No Hx Neurologic Surgery: Yes - HAD SUBDURAL HEMATOMA REMOVED Hx Brain Shunt: No Review of Systems All Other Systems: negative except mentioned in HPI Physical Exam Vital Signs Date Time Temp Pulse Resp B/P (MAP) Pulse Ox O2 Delivery O2 Flow Rate FiO2 02/11/19 11:35 98.1 76 16 98/60 (73) 97 Room Air Sp02 EP Interpretation: reviewed, normal General Appearance: no apparent distress, alert, GCS 15, non-toxic Head: normocephalic, atraumatic Eyes: right eye other - R. eye with a thin hair in conjunctiva. No fluorescin uptake on adan lamp. ; bilateral eye PERRL, bilateral eye EOMI ENT: hearing grossly normal, normal pharynx, no angioedema, normal voice Neck: full range of motion, supple/symm/no masses Respiratory: no respiratory distress, no retraction, no accessory muscle use, speaking full sentences Rectal: deferred Musculoskeletal: back normal, gait/station normal, normal range of motion, non- tender Neurologic: alert, oriented x3, responsive, motor strength/tone normal, sensory intact, speech normal Psychiatric: judgement/insight normal, memory normal, mood/affect normal, no suicidal/homicidal ideation Skin: normal color, no rash, warm/dry, well hydrated Medical Decision Making Diagnostic Impression: Primary Impression: Conjunctivitis Additional Impression: Corneal abrasion ER Course The patient possibly had a small piece of animal hair in her eye. There was no evidence of corneal abrasion. The patient was very sensitive to light and overall was resistant to opening either eye. I did not identify any significant corneal abrasion. I did sweep the lids. The patient was keeping her eyelid closed. I am unsure if this was actually secondary to true eye pain or anxiety. Regardless, the patient was instructed to go to an cost specialist right now. I will give the patient topical antibiotics. I did impress upon her the importance of ophthalmology or optometry evaluation today. She indicated understanding and intention to do so. Last Vital Signs Date Time Temp Pulse Resp B/P (MAP) Pulse Ox O2 Delivery O2 Flow Rate FiO2 02/11/19 11:51 98.1 72 15 108/62 99 Room Air Status: improved Disposition: HOME, SELF-CARE Condition: Improved Referrals: NOT CHOSEN IPA/MD,REFERRING (PCP) Patient Instructions: Bacterial Conjunctivitis, [id number] Geovanna Adler DO Feb 11, 2019 12:39
[2019-02-11] MEDS ORDERED: CILOXAN5 ML OP (13:16)
[2019-02-11 13:24] VITALS: BP 108/62
== END 2019-02-11 13:22 | disposition home or self-care (01) ==
LOC: EMR 11:55
DX: H10.9 Unspecified conjunctivitis (principal); S05.01XA Injury of conjunctiva and corneal abrasion without foreign body, right eye, initial encounter; X58.XXXA Exposure to other specified factors, initial encounter; Y92.9 Unspecified place or not applicable; K21.9 Gastro-esophageal reflux disease without esophagitis; Z90.3 Acquired absence of stomach [part of]; Z87.11 Personal history of peptic ulcer disease; Z88.8 Allergy status to other drugs, medicaments and biological substances; Z88.6 Allergy status to analgesic agent
CPT/HCPCS: 99281

== ENCOUNTER 2019-03-05 18:35 | Emergency (ER) | payer MEDICAID ==
[~2019-03-05] VITALS: Ht 175.3 cm; Wt 49.9 kg
[~2019-03-05 18:35] MED LIST changes: +CILOXAN5 ML OP
[2019-03-05 19:05] VITALS: BP 112/77
--- NOTE | 2019-03-05 19:05 | NUR ---
ED Nurse Note: pt. reported vomiting about 1 cup of blood since 4 pm today
--- NOTE | 2019-03-05 19:28 | Emergency Room Report ---
History of Present Illness General Chief Complaint: Vomiting Source: Patient Present Illness HPI 53-year-old female past history of gastric ulcer, requiring resection due to uncontrolled bleeding, patient patient presents with one episode of hematemesis one cupful per patient, she endorses nausea, no chest pain, no shortness of breath, she denies any aggravating or alleviating factors, she does endorse some achy epigastric pain, no aggravating or alleviating factors patient presents for evaluation, she denies any lightheadedness, Allergies: Coded Allergies: MEPERIDINE (Verified Allergy, Intermediate, Hives, 10/18/12) COPIED FROM UNCODED SECTION PANTOPRAZOLE (Verified Allergy, Intermediate, 03/08/17) MORPHINE (Verified Allergy, Unknown, ITCHING, 03/08/17) TRAMADOL (Verified Allergy, Unknown, 10/10/18) METOCLOPRAMIDE (Verified Adverse Reaction, Intermediate, "MY MUSCLE MUSCLE ARE FREEZING UP", 10/18/12) COPIED FROM UNCODED SECTION Patient History Past Medical History: see triage record Social History: Reports: smoking Reviewed Nursing Documentation: PMH: Agreed; PSxH: Agreed Nursing Documentation-PMH Past Medical History: No History, Except For Hx Cardiac Problems: No - SUBDURAL HEMATOMA SEP 2009 Hx Hypertension: No Hx Asthma: No Hx COPD: No Hx Diabetes: No Hx Cancer: No Hx Gastrointestinal Problems: Yes - PUD, gastrectomy Hx Dialysis: No Hx Neurological Problems: No Hx Cerebrovascular Accident: No Hx Transient Ischemic Attacks: No Hx Dementia: No Hx Alzheimer's Disease: No Hx Parkinson's Disease: No Hx Meningitis: No Hx Encephalitis: No Hx Seizures: No Hx Epilepsy: No Hx Multiple Sclerosis: No Hx Cerebral Palsy: No Hx Amyotrophic Lat Sclerosis: No Hx Guillian-Wamsutter Syndrome: No Hx Paralysis: No Hx Peripheral Neuropathy: No Hx Spinal Cord Injury: No Hx Head Trauma: No Hx Traumatic Brain Injury: No Hx Memory Loss: No Hx Concentration Difficulty: No Hx Speech Problem: No Hx Tremors: No Hx Vertigo: No Hx Dizziness: No Hx Syncope: No Hx Headaches: Yes - POST SUBDURAL HEMATOMA REMOVAL Hx Aphasia: No Hx Dysphasia: No Hx Numbness: No Hx Weakness: No Hx Fatigue: No Hx Neurologic Surgery: Yes - HAD SUBDURAL HEMATOMA REMOVED Hx Brain Shunt: No Review of Systems Constitutional: Denies: chills, fever Eye: Denies: blurred vision, double vision ENT: Denies: throat pain, nasal discharge Respiratory: Denies: cough, shortness of breath Cardiovascular: Denies: chest pain, palpitations Gastrointestinal: Reports: abdominal pain, nausea, vomiting; Denies: diarrhea Genitourinary: Denies: pain Musculoskeletal: Denies: back pain, muscle pain Skin: Denies: rash, lesions Neurological: Denies: headache, focal weakness Hematologic/Lymphatic: Denies: easy bleeding, easy bruising All Other Systems: negative except mentioned in HPI Physical Exam Vital Signs Date Time Temp Pulse Resp B/P (MAP) Pulse Ox O2 Delivery O2 Flow Rate FiO2 03/05/19 18:47 98.4 90 18 112/77 (89) 98 Room Air Sp02 EP Interpretation: reviewed, normal General Appearance: well appearing, no apparent distress, alert Head: normocephalic, atraumatic Eyes: bilateral eye PERRL, bilateral eye EOMI ENT: uvula midline, moist mucus membranes Neck: supple, thyroid normal, supple/symm/no masses Respiratory: lungs clear, no respiratory distress, no retraction, no accessory muscle use Cardiovascular #1: normal peripheral pulses, regular rate, rhythm, no edema, no gallop, no murmur Gastrointestinal: soft, no guarding, no rebound, tenderness - Tenderness to palpation epigastrically, other - Midline scar noted Musculoskeletal: normal inspection Neurologic: alert, oriented x3 Psychiatric: mood/affect normal Skin: no rash, warm/dry Medical Decision Making Diagnostic Impression: Primary Impression: Hematemesis ER Course 53-year-old female presents with epigastric pain nausea vomiting, hematemesis x1 episode, no vomiting in the ER, patient has remained hemodynamic Michael stable, multiple re-evaluations, patient's pain was well controlled with Dilaudid, patient was requesting Dilaudid, CT abdomen and pelvis shows no acute findings, patient was to be transferred to [facility], Dr. Sorensen accepted at 10:05pm. Patient was counseled and she stated that she does not want to go to [facility] and wants to leave AGAINST MEDICAL ADVICE DDX: Bleeding ulcer, gastritis, hematemesis The patient has requested to leave the ED against medical advice. The patient reason(s) for leaving include, but are not limited to, the following: does not want to be transferred to [facility]. I believe this patient is of sound mind and competent to refuse medical care. The patient is responding and asking questions appropriately. The patient is oriented to person, place and time. The patient is not psychotic, delusional, suicidal, homicidal or hallucinating. The patient demonstrates a normal mental capacity to make decisions regarding their healthcare. The patient is clinically sober and does not appear to be under the influence of any illicit drugs at this time. The patient has been advised of the risks, in layman terms, of leaving AMA which include, but are not limited to , coma, permanent disability, loss of current lifestyle, delay in diagnosis. Alternatives have been offered - the patient remains steadfast in their wish to leave. The patient has been advised that should they change their mind they are welcome to return to this hospital, or any other, at any time. The patient understands that in no way does an AMA discharge mean that I do not want them to have the best medical care available. To this end, I have provided appropriate prescriptions, referrals, and discharge instructions. The patient did sign AMA paperwork. The above discussion was witnessed by another member of staff. Laboratory Tests Test 03/05/19 19:30 03/05/19 20:19 White Blood Count 4.4 K/UL (4.8-10.8) L Red Blood Count 3.90 M/UL (4.20-5.40) L Hemoglobin 11.6 G/DL (12.0-16.0) L Hematocrit 36.3 % (37.0-47.0) L Mean Corpuscular Volume 93 FL (80-99) Mean Corpuscular Hemoglobin 29.9 PG (27.0-31.0) Mean Corpuscular Hemoglobin Concent 32.1 G/DL (32.0-36.0) Red Cell Distribution Width 12.2 % (11.6-14.8) Platelet Count 166 K/UL (150-450) Mean Platelet Volume 7.7 FL (6.5-10.1) Neutrophils (%) (Auto) 51.7 % (45.0-75.0) Lymphocytes (%) (Auto) 37.5 % (20.0-45.0) Monocytes (%) (Auto) 5.2 % (1.0-10.0) Eosinophils (%) (Auto) 3.8 % (0.0-3.0) H Basophils (%) (Auto) 1.9 % (0.0-2.0) Prothrombin Time 10.2 SEC (9.30-11.50) Prothrombin Time INR 1.0 (0.9-1.1) PTT 25 SEC (23-33) Sodium Level 143 MMOL/L (136-145) Potassium Level 3.8 MMOL/L (3.5-5.1) Chloride Level 105 MMOL/L (98-107) Carbon Dioxide Level 27 MMOL/L (21-32) Anion Gap 11 mmol/L (5-15) Blood Urea Nitrogen 18 mg/dL (7-18) Creatinine 0.7 MG/DL (0.55-1.30) Estimate Glomerular Filtration Rate > 60 mL/min (>60) Glucose Level 95 MG/DL (74-106) Calcium Level 9.4 MG/DL (8.5-10.1) Total Bilirubin 0.2 MG/DL (0.2-1.0) Aspartate Amino Transferase (AST) 33 U/L (15-37) Alanine Aminotransferase (ALT) 32 U/L (12-78) Alkaline Phosphatase 75 U/L (46-116) Troponin I 0.004 ng/mL (0.000-0.056) Total Protein 7.4 G/DL (6.4-8.2) Albumin 4.7 G/DL (3.4-5.0) Globulin 2.7 g/dL Albumin/Globulin Ratio 1.7 (1.0-2.7) Lipase 94 U/L (73-393) Urine Color Yellow Urine Appearance Clear Urine pH 6 (4.5-8.0) Urine Specific [place] 1.015 (1.005-1.035) Urine Protein Negative (NEGATIVE) Urine Glucose (UA) Negative (NEGATIVE) Urine Ketones Negative (NEGATIVE) Urine Blood Negative (NEGATIVE) Urine Nitrite Negative (NEGATIVE) Urine Bilirubin Negative (NEGATIVE) Urine Urobilinogen 1 MG/DL (0.0-1.0) H Urine Leukocyte Esterase 1+ (NEGATIVE) H Urine RBC 0 /HPF (0 - 2) Urine WBC 0-2 /HPF (0 - 2) Urine Squamous Epithelial Cells Few /LPF (NONE/OCC) Urine Bacteria Few /HPF (NONE) Lab Results Impression H/H stable, unchanged from previous EKG Diagnostic Results EKG Time: 19:16 EP Interpretation: Normal sinus rhythm, rate 81, QTc 47, no acute ST elevations , normal axis Rate: normal Rhythm: NSR ST Segments: no acute changes Chest X-Ray Diagnostic Results Chest X-Ray Diagnostic Results : Chest X-Ray Ordered: Yes # of Views/Limited/Complete: 1 View Indication: Other - Hematemesis EP Interpretation: Yes Interpretation: no consolidation, no effusion, no pneumothorax, no acute cardiopulmonary disease Impression: No acute disease CT/MRI/US Diagnostic Results CT/MRI/US Diagnostic Results : Imaging Test Ordered: CT abdomen and pelvis with contrast Impression No acute intra-abdominal processes per radiology, gastric sleeve noted Last Vital Signs Date Time Temp Pulse Resp B/P (MAP) Pulse Ox O2 Delivery O2 Flow Rate FiO2 03/05/19 18:47 98.4 90 18 112/77 (89) 98 Room Air Disposition: AGAINST MEDICAL ADVICE Condition: Improved Scripts Famotidine (PEPCID AC) 20 Mg Tablet 20 MG PO DAILY, #30 TAB Prov: Miki Cisse M.D. 03/05/19 Referrals: [facility] Patient Instructions: Nausea and Vomiting, Adult Additional Instructions: The patient was provided with discharge instructions, notified to follow-up with a primary care doctor and or specialist in the next 24-48 hours, and to return to the ED if they have worsening of their symptoms. Please follow-up with gastroenterology in 24 to 48 hours, Please note that this report is being documented using [employer] technology. This can lead to erroneous entry secondary to incorrect interpretation by the dictating instrument. Miki Cisse M.D. Mar 05, 2019 19:28
[2019-03-05 20:08] LABS: BASOPHILS % (AUTO) 1.9 % (0.0-2.0); EOSINOPHILS % (AUTO) 3.8 % (0.0-3.0); HEMATOCRIT 36.3 % (37.0-47.0); HEMOGLOBIN 11.6 G/DL (12.0-16.0); LYMPHOCYTES % (AUTO) 37.5 % (20.0-45.0); MEAN CORPUSCULAR VOLUME 93 FL (80-99); MONOCYTES % (AUTO) 5.2 % (1.0-10.0); NEUTROPHILS % (AUTO) 51.7 % (45.0-75.0); PLATELET COUNT 166 K/UL (150-450); RED CELL DISTRIBUTION WIDTH 12.2 % (11.6-14.8); WHITE BLOOD COUNT 4.4 K/UL (4.8-10.8)
[2019-03-05 20:27] LABS: ANION GAP 11 mmol/L (5-15); BLOOD UREA NITROGEN 18 mg/dL (7-18); CALCIUM 9.4 MG/DL (8.5-10.1); CARBON DIOXIDE 27 MMOL/L (21-32); CHLORIDE 105 MMOL/L (98-107); CREATININE 0.7 MG/DL (0.55-1.30); POTASSIUM 3.8 MMOL/L (3.5-5.1); SODIUM 143 MMOL/L (136-145)
[2019-03-05 20:34] LABS: APPEARANCE,URINE CLEAR; BILIRUBIN, URINE NEGATIVE (NEGATIVE); GLUCOSE, URINE (UA) NEGATIVE (NEGATIVE); KETONES,URINE NEGATIVE (NEGATIVE); LEUKOCYTE ESTERASE ,URINE 1+ (NEGATIVE); NITRITE,URINE NEGATIVE (NEGATIVE); PH,URINE 6 (4.5-8.0); PROTEIN,URINE NEGATIVE (NEGATIVE); UROBILINOGEN,URINE 1 MG/DL (0.0-1.0)
[2019-03-05 20:35] LABS: ALANINE AMINOTRANSFERASE 32 U/L (12-78); ALBUMIN 4.7 G/DL (3.4-5.0); ALBUMIN/GLOBULIN RATIO 1.7 (1.0-2.7); ALKALINE PHOSPHATASE 75 U/L (46-116); ASPARTATE AMINO TRANSFERASE 33 U/L (15-37); BILIRUBIN,TOTAL 0.2 MG/DL (0.2-1.0)
[2019-03-05 20:39] LABS: COLOR,URINE YELLOW
[2019-03-05 21:11] VITALS: BP 123/72
[2019-03-05] MEDS ORDERED: Isovue-300 100ml vial INJ PRN (21:15)
[2019-03-05] MEDS ORDERED: Hydromorphone 0.5mg/0.5ml inj IVP ONE (21:15)
--- NOTE | 2019-03-05 21:29 | NUR ---
Face sheet, MD dictation and clinicals faxed to [facility] at [phone] as requested.
--- NOTE | 2019-03-05 21:35 | NUR ---
ED Nurse Note: PT WENT TO CT
--- NOTE | 2019-03-05 22:13 | NUR ---
ER DISCHARGE NOTE: Patient was discharged per TAN FINNEGAN aware and spoke with pt in regards to risks. pt refuses to transferred to another hospital. pt is aox4, on room air, with stable vital signs. pt was given dc and prescription instructions, pt was able to verbalize understanding, pt id band and iv site removed without complications. pt is able to ambulate with steady gait. pt took all belongings.
[2019-03-05] MEDS ORDERED: PEPCID AC20 M2 PO (22:19)
[2019-03-05 22:27] VITALS: BP 115/75
--- NOTE | 2019-03-06 14:29 | Diagnostic Imaging Report ---
Indication: Abdominal pain Technique: Continuous helical transaxial imaging of the abdomen and pelvis was obtained from the lung bases to the pubic symphysis during intravenous contrast administration. Coronal 2-D reformats were also obtained. Study obtained in a Siemens sensation [address] Automatic Exposure Control was utilized. Total Dose length Product (DLP): 543.[address] Dose Index Volume (CTDIvol): 11.9 mGy Comparison: CT 03/08/2017 Findings: Lung bases are clear. Signs of the gastric bypass are noted. Cholecystectomy also demonstrated. The biliary ducts are prominent. Correlate clinically. Appearance was similar on the prior occasion. Both kidneys enhance normally. There is a moderate amount of fecal retention in the colon. Bowel gas pattern appears nonobstructive. There is no significant free fluid. There is no hydronephrosis. The spleen and pancreas, adrenal glands appear unremarkable. The uterus is noted. Adnexal structures not seen well. IMPRESSION: No acute findings identified Status post gastrectomy Biliary ductal prominence, stable compared to last study may be related to prior cholecystectomy. Correlate clinically. [facility] has communicated the preliminary results to the Emergency Department. Their findings are largely concordant with this report. The CT scanner at [facility] is accredited by the [employer] and the scans are performed using dose optimization techniques as appropriate to a performed exam including Automatic Exposure control.
--- NOTE | 2019-03-06 14:30 | Diagnostic Imaging Report ---
Indication: Dyspnea Comparison: None A single view chest radiograph was obtained. Findings: Cardiomediastinal appearance is within normal limits for age. The lungs are clear. Pulmonary vascularity is appropriate. The diaphragmatic contour is smooth and costophrenic angles are sharp. No pleural effusions are identified. The bones are unremarkable. Impression: No acute findings
== END 2019-03-05 22:13 | disposition left against medical advice (07) ==
LOC: EMR 19:24
DX: K92.0 Hematemesis (principal); Z88.8 Allergy status to other drugs, medicaments and biological substances; Z88.6 Allergy status to analgesic agent; F17.200 Nicotine dependence, unspecified, uncomplicated; Z87.11 Personal history of peptic ulcer disease; Z98.84 Bariatric surgery status
CPT/HCPCS: 36415; 71045; 74177; 80053; 81003; 83690; 84484; 85025; 85610; 85730; 86850; 86900; 86901; 93005; 96374; 96375; 99284; J1170; J2405; Q9967; S0028

== ENCOUNTER 2019-03-30 18:40 | Emergency (ER) | payer OTHER, MEDICAID ==
[~2019-03-30] VITALS: Ht 175.3 cm; Wt 49.9 kg
[~2019-03-30 18:40] MED LIST changes: +PEPCID AC20 M2 PO
[2019-03-30] MEDS ORDERED: PEPCID AC20 M2 PO (18:49)
[2019-03-30] MEDS ORDERED: XANAX0.25 MG ORAL (18:50)
[2019-03-30] MEDS ORDERED: HYDROmorphone 1mg/ml Carpuject IVP ONE ×2 (19:00→20:45)
--- NOTE | 2019-03-30 19:00 | Emergency Room Report ---
History of Present Illness General Chief Complaint: Gastrointestinal Bleed Source: Patient Present Illness HPI Patient has a history of upper GI bleeding. Patient has had stomach surgery. Patient states that she developed acute onset of vomiting hematemesis today. She states that she vomited approximately 2 cupfuls with a blood. Of note patient was here just recently with similar symptoms. At that time also had a CT scan which was negative. She denies any fever. Denies any melena. Denies any chest pain shortness of breath. Symptoms noted to be severe. Patient states the last time she did not want to be transferred to an outside facility so she left AGAINST MEDICAL ADVICE but this time she is willing to be treated appropriately including transfer. Symptoms noted to be severe. No other modifying factors. No other associated signs and symptoms. No other complaints were noted. Allergies: Coded Allergies: MEPERIDINE (Verified Allergy, Intermediate, Hives, 10/18/12) COPIED FROM UNCODED SECTION PANTOPRAZOLE (Verified Allergy, Intermediate, 03/08/17) MORPHINE (Verified Allergy, Unknown, ITCHING, 03/08/17) TRAMADOL (Verified Allergy, Unknown, 10/10/18) METOCLOPRAMIDE (Verified Adverse Reaction, Intermediate, "MY MUSCLE MUSCLE ARE FREEZING UP", 10/18/12) COPIED FROM UNCODED SECTION Patient History Past Medical History: other - Peptic ulcer disease, gastrectomy Past Surgical History: none Pertinent Family History: none Social History: Denies: smoking, alcohol use, drug use Last Menstrual Period: menopause Reviewed Nursing Documentation: PMH: Agreed; PSxH: Agreed Nursing Documentation-PMH Past Medical History: No History, Except For Hx Cardiac Problems: No - SUBDURAL HEMATOMA SEP 2009 Hx Hypertension: No Hx Pacemaker: No Hx Asthma: No Hx COPD: No Hx Diabetes: No Hx Cancer: No Hx Gastrointestinal Problems: Yes - PUD, gastrectomy Hx Dialysis: No Hx Neurological Problems: No Hx Cerebrovascular Accident: No Hx Transient Ischemic Attacks: No Hx Dementia: No Hx Alzheimer's Disease: No Hx Parkinson's Disease: No Hx Meningitis: No Hx Encephalitis: No Hx Seizures: No Hx Epilepsy: No Hx Multiple Sclerosis: No Hx Cerebral Palsy: No Hx Amyotrophic Lat Sclerosis: No Hx Guillian-Deeth Syndrome: No Hx Paralysis: No Hx Peripheral Neuropathy: No Hx Spinal Cord Injury: No Hx Head Trauma: No Hx Traumatic Brain Injury: No Hx Memory Loss: No Hx Concentration Difficulty: No Hx Speech Problem: No Hx Tremors: No Hx Vertigo: No Hx Dizziness: No Hx Syncope: No Hx Headaches: Yes - POST SUBDURAL HEMATOMA REMOVAL Hx Aphasia: No Hx Dysphasia: No Hx Numbness: No Hx Weakness: No Hx Fatigue: No Hx Neurologic Surgery: Yes - HAD SUBDURAL HEMATOMA REMOVED Hx Brain Shunt: No Review of Systems All Other Systems: negative except mentioned in HPI Physical Exam Vital Signs Date Time Temp Pulse Resp B/P (MAP) Pulse Ox O2 Delivery O2 Flow Rate FiO2 03/30/19 18:45 98.4 89 19 116/83 (94) 95 Room Air Sp02 EP Interpretation: reviewed, normal General Appearance: normal inspection, well appearing, no apparent distress, alert Head: atraumatic Eyes: bilateral eye normal inspection ENT: normal ENT inspection, hearing grossly normal, normal voice Neck: normal inspection, full range of motion, supple, no bony tend Respiratory: normal inspection, lungs clear, normal breath sounds, no respiratory distress, no retraction, no wheezing Cardiovascular #1: regular rate, rhythm, no edema Gastrointestinal: normal inspection, normal bowel sounds, soft, no guarding, no hernia, tenderness - Epigastrium Genitourinary: no CVA tenderness Musculoskeletal: normal inspection, back normal, normal range of motion Neurologic: normal inspection, alert, responsive, speech normal Psychiatric: normal inspection, judgement/insight normal, mood/affect normal Medical Decision Making Diagnostic Impression: Primary Impression: GIB (gastrointestinal bleeding) Additional Impression: Abdominal pain ER Course Patient presents emergency department today complaining of abdominal pain. Patient has a history of gastric surgery x2 to treat gastric ulcer. Unfortunately she continues have abdominal discomfort and she had several episodes of GI bleeding in the past. Today she had 2 episodes she says of vomiting hematemesis. She states that the amount of blood loss probably was a couple cups full. She denies any melena. Symptoms noted to be severe. Differential diagnosis include active GI bleeding, esophageal varices, stomach ulcer just name few. Given the severity of the patient's presentation I felt this is a highly complex patient. This patient required extensive workup. Patient laboratory work-up was not impressive. Patient was given pain medications to control pain. Case was discussed with Dr. Hawley. Patient will be transferred to [facility] for further management. Labs Test 03/30/19 19:30 White Blood Count 5.6 K/UL (4.8-10.8) Red Blood Count 4.37 M/UL (4.20-5.40) Hemoglobin 12.9 G/DL (12.0-16.0) Hematocrit 38.4 % (37.0-47.0) Mean Corpuscular Volume 88 FL (80-99) Mean Corpuscular Hemoglobin 29.6 PG (27.0-31.0) Mean Corpuscular Hemoglobin Concent 33.7 G/DL (32.0-36.0) Red Cell Distribution Width 11.9 % (11.6-14.8) Platelet Count 151 K/UL (150-450) Mean Platelet Volume 7.2 FL (6.5-10.1) Neutrophils (%) (Auto) 42.3 % (45.0-75.0) Lymphocytes (%) (Auto) 45.1 % (20.0-45.0) Monocytes (%) (Auto) 5.7 % (1.0-10.0) Eosinophils (%) (Auto) 6.4 % (0.0-3.0) Basophils (%) (Auto) 0.6 % (0.0-2.0) Prothrombin Time 10.8 SEC (9.30-11.50) Prothromb Time International Ratio 1.0 (0.9-1.1) Activated Partial Thromboplast Time 27 SEC (23-33) Sodium Level 140 MMOL/L (136-145) Potassium Level 4.6 MMOL/L (3.5-5.1) Chloride Level 105 MMOL/L (98-107) Carbon Dioxide Level 26 MMOL/L (21-32) Anion Gap 9 mmol/L (5-15) Blood Urea Nitrogen 22 mg/dL (7-18) Creatinine 0.6 MG/DL (0.55-1.30) Estimat Glomerular Filtration Rate > 60 mL/min (>60) Glucose Level 95 MG/DL (74-106) Calcium Level 9.8 MG/DL (8.5-10.1) Total Bilirubin 0.3 MG/DL (0.2-1.0) Aspartate Amino Transf (AST/SGOT) 27 U/L (15-37) Alanine Aminotransferase (ALT/SGPT) 26 U/L (12-78) Alkaline Phosphatase 75 U/L (46-116) Total Protein 7.7 G/DL (6.4-8.2) Albumin 4.4 G/DL (3.4-5.0) Globulin 3.3 g/dL Albumin/Globulin Ratio 1.3 (1.0-2.7) Lipase 94 U/L (73-393) Last Vital Signs Date Time Temp Pulse Resp B/P (MAP) Pulse Ox O2 Delivery O2 Flow Rate FiO2 03/30/19 18:45 98.4 89 19 116/83 (94) 95 Room Air Status: improved Disposition: XFER [facility] Condition: Serious Kevin Wolff MD Mar 30, 2019 19:00
--- NOTE | 2019-03-30 19:10 | NUR ---
ED Nurse Note: c/o vomiting blood x 2 day (bright red blood with clots '1/2 cup') and c/o LUQ abdominal pain since this morning.Reports no use of alcohol or taking any blood thinner. ao4 nad vss
--- NOTE | 2019-03-30 19:30 | NUR ---
ED Nurse Note: iv access established. blood collected; sent down to lab..
[2019-03-30 19:53] LABS: BASOPHILS % (AUTO) 0.6 % (0.0-2.0); EOSINOPHILS % (AUTO) 6.4 % (0.0-3.0); HEMATOCRIT 38.4 % (37.0-47.0); HEMOGLOBIN 12.9 G/DL (12.0-16.0); LYMPHOCYTES % (AUTO) 45.1 % (20.0-45.0); MEAN CORPUSCULAR VOLUME 88 FL (80-99); MONOCYTES % (AUTO) 5.7 % (1.0-10.0); NEUTROPHILS % (AUTO) 42.3 % (45.0-75.0); PLATELET COUNT 151 K/UL (150-450); RED BLOOD COUNT 4.37 M/UL (4.20-5.40); RED CELL DISTRIBUTION WIDTH 11.9 % (11.6-14.8); WHITE BLOOD COUNT 5.6 K/UL (4.8-10.8)
[2019-03-30 19:55] VITALS: BP 116/83
[2019-03-30 20:04] LABS: ANION GAP 9 mmol/L (5-15); BLOOD UREA NITROGEN 22 mg/dL (7-18); CALCIUM 9.8 MG/DL (8.5-10.1); CARBON DIOXIDE 26 MMOL/L (21-32); CHLORIDE 105 MMOL/L (98-107); CREATININE 0.6 MG/DL (0.55-1.30); POTASSIUM 4.6 MMOL/L (3.5-5.1); SODIUM 140 MMOL/L (136-145)
[2019-03-30 20:10] LABS: ALANINE AMINOTRANSFERASE 26 U/L (12-78); ALBUMIN 4.4 G/DL (3.4-5.0); ALBUMIN/GLOBULIN RATIO 1.3 (1.0-2.7); ALKALINE PHOSPHATASE 75 U/L (46-116); ASPARTATE AMINO TRANSFERASE 27 U/L (15-37); BILIRUBIN,TOTAL 0.3 MG/DL (0.2-1.0)
--- NOTE | 2019-03-30 20:25 | NUR ---
ED Nurse Note: urine collected; sent down to lab.
[2019-03-30] MEDS ORDERED: LORazepam Inj 2mg/ml 1ml IV ONE (20:45)
[2019-03-30 20:56] LABS: APPEARANCE,URINE SLIGHTLY CLOUDY; BILIRUBIN, URINE NEGATIVE (NEGATIVE); COLOR,URINE PALE YELLOW; GLUCOSE, URINE (UA) NEGATIVE (NEGATIVE); KETONES,URINE NEGATIVE (NEGATIVE); LEUKOCYTE ESTERASE ,URINE NEGATIVE (NEGATIVE); NITRITE,URINE NEGATIVE (NEGATIVE); PH,URINE 5 (4.5-8.0); PROTEIN,URINE NEGATIVE (NEGATIVE); UROBILINOGEN,URINE NORMAL MG/DL (0.0-1.0)
--- NOTE | 2019-03-30 21:15 | NUR ---
ED Nurse Note: REPORT GIVEN TO DIONNA ELLISON OF [facility]. PATIENT TO BE ADMITTED TO TELE UNDER MD KULWINDER.
[2019-03-30 21:38] VITALS: BP 92/64
[2019-03-30 22:01] VITALS: BP 112/81
--- NOTE | 2019-03-30 22:15 | NUR ---
ED Nurse Note: transfer to [facility] cancelled. report given to dallin cisse of [facility] er department. patient to be under the care of md mica. pt aware of peding transfer.
--- NOTE | 2019-03-30 22:45 | NUR ---
ED Nurse Note: REPORT GIVEN TO DIONNA SPARROW OF [facility]. PT LEFT WITH EMS WITH ALL BELONGINGS. STABLE FOR TRANSFER.
[2019-03-30 23:00] VITALS: BP 94/56
== END 2019-03-30 23:00 | disposition short-term general hospital (02) ==
LOC: EMR 19:36
DX: K92.2 Gastrointestinal hemorrhage, unspecified (principal); R10.9 Unspecified abdominal pain; Z88.8 Allergy status to other drugs, medicaments and biological substances; Z88.6 Allergy status to analgesic agent; K27.9 Peptic ulcer, site unspecified, unspecified as acute or chronic, without hemorrhage or perforation
CPT/HCPCS: 36415; 80053; 81003; 83690; 85025; 85610; 85730; 86850; 86900; 86901; 96372; 96374; 96375; 96376; 99285; J1170; J2405; J2550; S0028

== ENCOUNTER 2019-04-14 19:18 | Emergency (ER) | payer OTHER, MEDICAID ==
[~2019-04-14] VITALS: Ht 175.3 cm; Wt 49.4 kg
[2019-04-14 19:30] VITALS: BP 120/76
--- NOTE | 2019-04-14 19:30 | NUR ---
ED Nurse Note: pt walked in c/o epigastric pain and blood in vomiting x 3 hrs. Addendum: 04/14/19 at 1940 by [facility] ED Nurse Note: pt walked in c/o epigastric pain and blood in vomiting x 3 hrs. Pt is AAO X 4, VSS, with no acute distress.
--- NOTE | 2019-04-14 19:59 | Emergency Room Report ---
History of Present Illness General Chief Complaint: Abdominal Pain Source: Patient Present Illness HPI 53-year-old female past history of gastric ulcer, requiring resection due to uncontrolled bleeding, patient patient presents with one episode of hematemesis prior to arrival, one cupful, no aggravating or relieving factors, patient denies any lightheadedness no chest pain she does endorse some epigastric pain burning in nature severity is mild. patient was seen at [facility] 2018 with a negative EGD. Denies any chest pain shortness of breath. Patient presents for evaluation Allergies: Coded Allergies: MEPERIDINE (Verified Allergy, Intermediate, Hives, 10/18/12) COPIED FROM UNCODED SECTION PANTOPRAZOLE (Verified Allergy, Intermediate, 03/08/17) MORPHINE (Verified Allergy, Unknown, ITCHING, 03/08/17) TRAMADOL (Verified Allergy, Unknown, 10/10/18) METOCLOPRAMIDE (Verified Adverse Reaction, Intermediate, "MY MUSCLE MUSCLE ARE FREEZING UP", 10/18/12) COPIED FROM UNCODED SECTION Patient History Past Medical History: see triage record Now: No Reviewed Nursing Documentation: PMH: Agreed; PSxH: Agreed Nursing Documentation-PMH Past Medical History: No History, Except For Hx Cardiac Problems: No - SUBDURAL HEMATOMA SEP 2009 Hx Hypertension: No Hx Pacemaker: No Hx Asthma: No Hx COPD: No Hx Diabetes: No Hx Cancer: No Hx Gastrointestinal Problems: Yes - PUD, gastrectomy Hx Dialysis: No Hx Neurological Problems: No Hx Cerebrovascular Accident: No Hx Transient Ischemic Attacks: No Hx Dementia: No Hx Alzheimer's Disease: No Hx Parkinson's Disease: No Hx Meningitis: No Hx Encephalitis: No Hx Seizures: No Hx Epilepsy: No Hx Multiple Sclerosis: No Hx Cerebral Palsy: No Hx Amyotrophic Lat Sclerosis: No Hx Guillian-[place] Syndrome: No Hx Paralysis: No Hx Peripheral Neuropathy: No Hx Spinal Cord Injury: No Hx Head Trauma: No Hx Traumatic Brain Injury: No Hx Memory Loss: No Hx Concentration Difficulty: No Hx Speech Problem: No Hx Tremors: No Hx Vertigo: No Hx Dizziness: No Hx Syncope: No Hx Headaches: Yes - POST SUBDURAL HEMATOMA REMOVAL Hx Aphasia: No Hx Dysphasia: No Hx Numbness: No Hx Weakness: No Hx Fatigue: No Hx Neurologic Surgery: Yes - HAD SUBDURAL HEMATOMA REMOVED Hx Brain Shunt: No Review of Systems All Other Systems: negative except mentioned in HPI Physical Exam Vital Signs Date Time Temp Pulse Resp B/P (MAP) Pulse Ox O2 Delivery O2 Flow Rate FiO2 04/14/19 19:26 97.7 103 18 112/75 (87) 98 Room Air Sp02 EP Interpretation: reviewed, normal General Appearance: well appearing, no apparent distress, alert Head: normocephalic, atraumatic Eyes: bilateral eye PERRL, bilateral eye EOMI ENT: uvula midline, moist mucus membranes Neck: supple, thyroid normal, supple/symm/no masses Respiratory: lungs clear, no respiratory distress, no retraction, no accessory muscle use Cardiovascular #1: normal peripheral pulses, regular rate, rhythm, no edema, no gallop, no murmur Gastrointestinal: non tender, soft, no guarding, no rebound Musculoskeletal: normal inspection Neurologic: alert, oriented x3 Psychiatric: mood/affect normal Skin: no rash, warm/dry Medical Decision Making Diagnostic Impression: Primary Impression: Gastritis Qualified Codes: K29.51 - Unspecified chronic gastritis with bleeding ER Course 53-year-old female history of gastric resection, history of GI bleeds, history of negative EGDs 2016, 201803/31/2019, patient has a history of asking for Dilaudid, patient in no acute distress, will provide patient with Pepcid, will evaluate hemoglobin, if there is no change in hemoglobin from her previous visit low suspicion for acute GI bleed. She is in no acute distress Reevaluation 8:16 PM, patient noted to be on her cell phone playing games, she told the nurse that she is allergic to morphine and requires stronger medication Spoke with Dr. Emmanuel Caceres 8:49pm it was found to have syringes of blood on her person, she was admitted [address] [facility] there is a concern for possible fictitious disorder Reevaluation at 8:53 PM, patient wants to leave AGAINST MEDICAL ADVICE H/H improved from [place] visit now 11.9 versus 10. Low suspicion for acute bleed. The patient has requested to leave the ED against medical advice. The patient reason(s) for leaving include, but are not limited to, the following: "my boyfriend wants me to leave". I believe this patient is of sound mind and competent to refuse medical care. The patient is responding and asking questions appropriately. The patient is oriented to person, place and time. The patient is not psychotic, delusional, suicidal, homicidal or hallucinating. The patient demonstrates a normal mental capacity to make decisions regarding their healthcare. The patient is clinically sober and does not appear to be under the influence of any illicit drugs at this time. The patient has been advised of the risks, in layman terms, of leaving AMA which include, but are not limited to , coma, permanent disability, loss of current lifestyle, delay in diagnosis. Alternatives have been offered - the patient remains steadfast in their wish to leave. The patient has been advised that should they change their mind they are welcome to return to this hospital, or any other, at any time. The patient understands that in no way does an AMA discharge mean that I do not want them to have the best medical care available. To this end, I have provided appropriate prescriptions, referrals, and discharge instructions. The patient did sign AMA paperwork. The above discussion was witnessed by another member of staff. Laboratory Tests Test 04/14/19 20:05 04/14/19 20:15 White Blood Count 5.2 K/UL (4.8-10.8) Red Blood Count 4.07 M/UL (4.20-5.40) L Hemoglobin 11.9 G/DL (12.0-16.0) L Hematocrit 35.5 % (37.0-47.0) L Mean Corpuscular Volume 87 FL (80-99) Mean Corpuscular Hemoglobin 29.3 PG (27.0-31.0) Mean Corpuscular Hemoglobin Concent 33.7 G/DL (32.0-36.0) Red Cell Distribution Width 12.4 % (11.6-14.8) Platelet Count 202 K/UL (150-450) Mean Platelet Volume 6.9 FL (6.5-10.1) Neutrophils (%) (Auto) 50.9 % (45.0-75.0) Lymphocytes (%) (Auto) 31.3 % (20.0-45.0) Monocytes (%) (Auto) 6.8 % (1.0-10.0) Eosinophils (%) (Auto) 9.2 % (0.0-3.0) H Basophils (%) (Auto) 1.8 % (0.0-2.0) Prothrombin Time Pending Prothrombin Time INR Pending PTT Pending Sodium Level 142 MMOL/L (136-145) Potassium Level 3.6 MMOL/L (3.5-5.1) Chloride Level 107 MMOL/L (98-107) Carbon Dioxide Level 26 MMOL/L (21-32) Anion Gap 9 mmol/L (5-15) Blood Urea Nitrogen 15 mg/dL (7-18) Creatinine 0.8 MG/DL (0.55-1.30) Estimate Glomerular Filtration Rate > 60 mL/min (>60) Glucose Level 116 MG/DL (74-106) H Calcium Level 9.2 MG/DL (8.5-10.1) Total Bilirubin 0.3 MG/DL (0.2-1.0) Aspartate Amino Transferase (AST) 28 U/L (15-37) Alanine Aminotransferase (ALT) 30 U/L (12-78) Alkaline Phosphatase 80 U/L (46-116) Total Protein 7.4 G/DL (6.4-8.2) Albumin 4.0 G/DL (3.4-5.0) Globulin 3.4 g/dL Albumin/Globulin Ratio 1.2 (1.0-2.7) Lipase 118 U/L (73-393) Urine Color Yellow Urine Appearance Slightly cloudy Urine pH 5 (4.5-8.0) Urine Specific [place] 1.025 (1.005-1.035) Urine Protein Negative (NEGATIVE) Urine Glucose (UA) 2+ (NEGATIVE) H Urine Ketones Negative (NEGATIVE) Urine Blood Negative (NEGATIVE) Urine Nitrite Negative (NEGATIVE) Urine Bilirubin Negative (NEGATIVE) Urine Urobilinogen 4 MG/DL (0.0-1.0) H Urine Leukocyte Esterase 1+ (NEGATIVE) H Urine RBC Pending Urine WBC Pending Urine Squamous Epithelial Cells Pending Urine Bacteria Pending Last Vital Signs Date Time Temp Pulse Resp B/P (MAP) Pulse Ox O2 Delivery O2 Flow Rate FiO2 04/14/19 19:26 97.7 103 18 112/75 (87) 98 Room Air Disposition: AGAINST MEDICAL ADVICE Condition: Stable Referrals: GASTROENTEROLOGY Patient Instructions: Gastrointestinal Bleeding, [id number] Additional Instructions: The patient was provided with discharge instructions, notified to follow-up with a primary care doctor and or specialist in the next 24-48 hours, and to return to the ED if they have worsening of their symptoms. Please note that this report is being documented using DRAGON technology. This can lead to erroneous entry secondary to incorrect interpretation by the dictating instrument. Miki Cisse MD Apr 14, 2019 19:59
--- NOTE | 2019-04-14 20:04 | NUR ---
ED Nurse Note: pt labs sent. and x-ray done.
[2019-04-14] MEDS ORDERED: Acetaminophen 500mg (ES) tab ORAL ONE (20:30)
[2019-04-14 20:40] LABS: BASOPHILS % (AUTO) 1.8 % (0.0-2.0); EOSINOPHILS % (AUTO) 9.2 % (0.0-3.0); HEMATOCRIT 35.5 % (37.0-47.0); HEMOGLOBIN 11.9 G/DL (12.0-16.0); LYMPHOCYTES % (AUTO) 31.3 % (20.0-45.0); MEAN CORPUSCULAR VOLUME 87 FL (80-99); MONOCYTES % (AUTO) 6.8 % (1.0-10.0); NEUTROPHILS % (AUTO) 50.9 % (45.0-75.0); PLATELET COUNT 202 K/UL (150-450); RED BLOOD COUNT 4.07 M/UL (4.20-5.40); RED CELL DISTRIBUTION WIDTH 12.4 % (11.6-14.8); WHITE BLOOD COUNT 5.2 K/UL (4.8-10.8)
[2019-04-14 20:42] LABS: APPEARANCE,URINE SLIGHTLY CLOUDY; BILIRUBIN, URINE NEGATIVE (NEGATIVE); GLUCOSE, URINE (UA) 2+ (NEGATIVE); KETONES,URINE NEGATIVE (NEGATIVE); LEUKOCYTE ESTERASE ,URINE 1+ (NEGATIVE); NITRITE,URINE NEGATIVE (NEGATIVE); PH,URINE 5 (4.5-8.0); PROTEIN,URINE NEGATIVE (NEGATIVE); UROBILINOGEN,URINE 4 MG/DL (0.0-1.0)
[2019-04-14 20:42] LABS: ANION GAP 9 mmol/L (5-15); BLOOD UREA NITROGEN 15 mg/dL (7-18); CALCIUM 9.2 MG/DL (8.5-10.1); CARBON DIOXIDE 26 MMOL/L (21-32); CHLORIDE 107 MMOL/L (98-107); CREATININE 0.8 MG/DL (0.55-1.30); POTASSIUM 3.6 MMOL/L (3.5-5.1); SODIUM 142 MMOL/L (136-145)
[2019-04-14 20:45] LABS: COLOR,URINE YELLOW
[2019-04-14 20:46] LABS: ALANINE AMINOTRANSFERASE 30 U/L (12-78); ALBUMIN/GLOBULIN RATIO 1.2 (1.0-2.7); ALKALINE PHOSPHATASE 80 U/L (46-116); ASPARTATE AMINO TRANSFERASE 28 U/L (15-37); BILIRUBIN,TOTAL 0.3 MG/DL (0.2-1.0)
[2019-04-14 20:53] VITALS: BP 104/74
--- NOTE | 2019-04-15 16:07 | Diagnostic Imaging Report ---
Indication: Shortness of breath Technique: One view of the chest Comparison: 03/05/2019 Findings: Lungs and pleural spaces are clear. Heart size is normal. There is no significant interim change Impression: No acute process
== END 2019-04-14 20:53 | disposition left against medical advice (07) ==
LOC: EMR 20:41
DX: K29.51 Unspecified chronic gastritis with bleeding (principal); Z87.11 Personal history of peptic ulcer disease; Z88.8 Allergy status to other drugs, medicaments and biological substances; Z88.6 Allergy status to analgesic agent
CPT/HCPCS: 36415; 71045; 80053; 81003; 83690; 85025; 86850; 86900; 86901; 96374; 96375; 99284; J2405; S0028

== ENCOUNTER 2019-06-25 17:35 | Emergency (ER) | payer MEDICAID, OTHER ==
[~2019-06-25] VITALS: Ht 175.3 cm; Wt 46.7 kg
--- NOTE | 2019-06-25 17:50 | NUR ---
ED Nurse Note: Patient walked into ED c/o upper abodminal pain that has been an on going issue for the past 3 days accomapnied by N/V/D, patient is complaining of 8/10 pain, multiple nurses have attempted to start an IV however no success. patient is alert and oriented x4, ambulatory with a steady gait, VSS. will wait for further orders
[2019-06-25 17:55] VITALS: BP 110/82
--- NOTE | 2019-06-25 18:16 | Emergency Room Report ---
History of Present Illness General Chief Complaint: Abdominal Pain Source: Patient, Medical Record Present Illness HPI The patient presents with epigastric pain and vomiting. She has a history of gastritis. Apparently she had endoscopy March 31 at [place] which is reported "negative". Today she was vomiting some blood. She denies any melena at this time or hematochezia. She rates the pain 8/10 at this time burning and aching epigastric nonradiating. She was previously using Zofran which did not work well for her. She also has Pepcid and Carafate. History of partial gastrectomy. The patient was seen here April 14. She ended up signing out AGAINST MEDICAL ADVICE on that visit. Please review the notes from Dr. Cisse who made several calls to try and ascertain the patient's history and past history. No addition she was found to have vitals of blood in her purse. In February she had a similar presentation. At that time she refused to be transferred to [facility]. She signed out AGAINST MEDICAL ADVICE. The patient was admitted in February 2017 with a GI bleed. Discharge diagnoses: 1. Abdominal pain with possible gastrointestinal bleed. 2. Status post esophagogastroduodenoscopy with findings of small hiatal hernia, gastric polyps, partial antrectomy, and clipping the jejunum without any active bleed. No fevers, chills, sore throat, chest pain, palpitations, dysuria, shortness of breath, joint pain, rashes, visual changes, dizziness, headache. She was seen twice earlier this year for concussions. She has a history of subdural hematoma which was removed in 2009. In January when she was seen she had some dysdiadochokinesis. She was discharged home. Allergies: Coded Allergies: MEPERIDINE (Verified Allergy, Intermediate, Hives, 10/18/12) COPIED FROM UNCODED SECTION PANTOPRAZOLE (Verified Allergy, Intermediate, 03/08/17) MORPHINE (Verified Allergy, Unknown, ITCHING, 03/08/17) TRAMADOL (Verified Allergy, Unknown, 10/10/18) METOCLOPRAMIDE (Verified Adverse Reaction, Intermediate, "MY MUSCLE MUSCLE ARE FREEZING UP", 10/18/12) COPIED FROM UNCODED SECTION Patient History Past Medical History: see triage record, old chart reviewed, other - Gastritis Past Surgical History: other - Subdural hematoma 2009, partial gastrectomy Social History: Reports: smoking; Denies: alcohol use, drug use Social History Narrative [employer] Last Menstrual Period: N/A since 2016 Now: No Reviewed Nursing Documentation: PMH: Agreed; PSxH: Agreed Nursing Documentation-PMH Hx Cardiac Problems: No - SUBDURAL HEMATOMA SEP 2009 Hx Hypertension: No Hx Pacemaker: No Hx Asthma: No Hx COPD: No Hx Diabetes: No Hx Cancer: No Hx Gastrointestinal Problems: Yes - PUD, gastrectomy Hx Dialysis: No Hx Neurological Problems: No Hx Cerebrovascular Accident: No Hx Transient Ischemic Attacks: No Hx Dementia: No Hx Alzheimer's Disease: No Hx Parkinson's Disease: No Hx Meningitis: No Hx Encephalitis: No Hx Seizures: No Hx Epilepsy: No Hx Multiple Sclerosis: No Hx Cerebral Palsy: No Hx Amyotrophic Lat Sclerosis: No Hx Guillian-[place] Syndrome: No Hx Paralysis: No Hx Peripheral Neuropathy: No Hx Spinal Cord Injury: No Hx Head Trauma: No Hx Traumatic Brain Injury: No Hx Memory Loss: No Hx Concentration Difficulty: No Hx Speech Problem: No Hx Tremors: No Hx Vertigo: No Hx Dizziness: No Hx Syncope: No Hx Headaches: Yes - POST SUBDURAL HEMATOMA REMOVAL Hx Aphasia: No Hx Dysphasia: No Hx Numbness: No Hx Weakness: No Hx Fatigue: No Hx Neurologic Surgery: Yes - HAD SUBDURAL HEMATOMA REMOVED Hx Brain Shunt: No Review of Systems All Other Systems: negative except mentioned in HPI Physical Exam Vital Signs Date Time Temp Pulse Resp B/P (MAP) Pulse Ox O2 Delivery O2 Flow Rate FiO2 06/25/19 17:47 98.4 77 18 125/86 (99) 96 Room Air Sp02 EP Interpretation: reviewed, normal General Appearance: well appearing, no apparent distress, GCS 15, thin Head: normocephalic Eyes: bilateral eye normal inspection, bilateral eye PERRL, bilateral eye EOMI ENT: moist mucus membranes Neck: supple Respiratory: lungs clear, normal breath sounds Cardiovascular #1: regular rate, rhythm Cardiovascular #2: 2+ radial (R) Gastrointestinal: normal inspection, normal bowel sounds, no mass, non- distended, no guarding, no rebound, tenderness - Epigastric, scaphoid Genitourinary: no CVA tenderness Musculoskeletal: back normal, gait/station normal, normal range of motion Neurologic: alert, oriented x3, grossly normal Psychiatric: depressed affect Skin: no rash, warm/dry Medical Decision Making Diagnostic Impression: Primary Impression: Gastritis Qualified Codes: K29.00 - Acute gastritis without bleeding ER Course Patient presents with vomiting and alleged blood with a history of gastritis. Differential includes gastritis, Jaylin-Smith tear, pancreatitis, peptic ulcer disease, viral illness amongst others. Patient evaluated with EKG, chest x-ray and labs.. Patient treated with Pepcid and Zofran. Very complicated patient. EKG without injury. Chest x-ray no infiltrates. CBC and CMP unremarkable. Lipase normal. Patient threatens to sign out (in order to smoke). Patient did not give urine sample. She states she has no insurance at this time and this worries her. When returned, requested more Zofran. Given percocet. Tolerating oral intake. Still some gagging at times. Patient again insisting on leaving. Discussed treatment plan with patient. Also the need for close outpatient follow-up. She was advised to return if she is not doing well. Laboratory Tests Test 06/25/19 19:05 06/25/19 19:40 White Blood Count 4.3 K/UL (4.8-10.8) L Red Blood Count 3.90 M/UL (4.20-5.40) L Hemoglobin 11.2 G/DL (12.0-16.0) L Hematocrit 33.9 % (37.0-47.0) L Mean Corpuscular Volume 87 FL (80-99) Mean Corpuscular Hemoglobin 28.7 PG (27.0-31.0) Mean Corpuscular Hemoglobin Concent 33.0 G/DL (32.0-36.0) Red Cell Distribution Width 12.8 % (11.6-14.8) Platelet Count 156 K/UL (150-450) Mean Platelet Volume 6.5 FL (6.5-10.1) Neutrophils (%) (Auto) 54.7 % (45.0-75.0) Lymphocytes (%) (Auto) 36.1 % (20.0-45.0) Monocytes (%) (Auto) 5.1 % (1.0-10.0) Eosinophils (%) (Auto) 2.7 % (0.0-3.0) Basophils (%) (Auto) 1.4 % (0.0-2.0) Sodium Level 144 MMOL/L (136-145) Potassium Level 4.1 MMOL/L (3.5-5.1) Chloride Level 108 MMOL/L (98-107) H Carbon Dioxide Level 29 MMOL/L (21-32) Anion Gap 7 mmol/L (5-15) Blood Urea Nitrogen 14 mg/dL (7-18) Creatinine 0.5 MG/DL (0.55-1.30) L Estimate Glomerular Filtration Rate > 60 mL/min (>60) Glucose Level 92 MG/DL (74-106) Calcium Level 9.5 MG/DL (8.5-10.1) Magnesium Level 2.4 MG/DL (1.8-2.4) Total Bilirubin 0.3 MG/DL (0.2-1.0) Aspartate Amino Transferase (AST) 38 U/L (15-37) H Alanine Aminotransferase (ALT) 42 U/L (12-78) Alkaline Phosphatase 60 U/L (46-116) Troponin I 0.000 ng/mL (0.000-0.056) Total Protein 7.5 G/DL (6.4-8.2) Albumin 4.6 G/DL (3.4-5.0) Globulin 2.9 g/dL Albumin/Globulin Ratio 1.6 (1.0-2.7) Lipase 109 U/L (73-393) Serum Alcohol < 3 mg/dL Prothrombin Time 11.0 SEC (9.30-11.50) Prothrombin Time INR 1.0 (0.9-1.1) PTT 25 SEC (23-33) EKG Diagnostic Results Rate: normal Rhythm: NSR ST Segments: no acute changes - Nonspecific ST-T wave changes Rhythm Strip Diag. Results Rhythm: NSR, no PVC's, no ectopy Chest X-Ray Diagnostic Results Chest X-Ray Diagnostic Results : Chest X-Ray Ordered: Yes # of Views/Limited/Complete: 1 View Indication: Other EP Interpretation: Yes Interpretation: no consolidation, no effusion, no pneumothorax, other - copd Impression: Other Last Vital Signs Date Time Temp Pulse Resp B/P (MAP) Pulse Ox O2 Delivery O2 Flow Rate FiO2 06/25/19 22:10 98.4 86 18 110/82 96 Room Air Status: improved Disposition: HOME, SELF-CARE Condition: Improved Scripts Hydrocodone Bit/Acetaminophen 5-325* (NORCO 5-325*) 1 Each Tablet 1 TAB ORAL Q6H PRN for For Pain, #6 TAB 0 Refills Prov: Salazar Barboza MD 06/25/19 Promethazine HCl (Promethegan) 25 Mg Supp.rect 25 MG RECTAL Q8HR PRN for Nausea & Vomiting, #6 SUPP 2 Refills Prov: Salazar Barboza MD 06/25/19 Promethazine Hcl* (PHENERGAN*) 25 Mg Tablet 25 MG ORAL Q8HR, #15 TAB 0 Refills Prov: Salazar Barboza MD 06/25/19 Salazar Barboza MD Jun 25, 2019 18:16
[2019-06-25] MEDS ORDERED: Lidocaine 1% MPF 10mg/ml 5ml ONE (19:05)
--- NOTE | 2019-06-25 19:10 | NUR ---
ED Nurse Note: IV started by DIONNA hill on patients left hand 22 gauge, informed Dr. gibson about the delay of blood collection. Contacted lisa oil field laborer for draw. will continue to monitor
--- NOTE | 2019-06-25 19:15 | NUR ---
HAND-OFF: Report given to DIONNA Walker.
[2019-06-25] MEDS ORDERED: Lidocaine 2% Visc 15ml soln ORAL ONE (20:00)
[2019-06-25] MEDS ORDERED: Mylanta II UD 30ml ORAL ONE (20:00)
[2019-06-25 20:04] LABS: ANION GAP 7 mmol/L (5-15); BASOPHILS % (AUTO) 1.4 % (0.0-2.0); BLOOD UREA NITROGEN 14 mg/dL (7-18); CALCIUM 9.5 MG/DL (8.5-10.1); CARBON DIOXIDE 29 MMOL/L (21-32); CHLORIDE 108 MMOL/L (98-107); CREATININE 0.5 MG/DL (0.55-1.30); EOSINOPHILS % (AUTO) 2.7 % (0.0-3.0); HEMATOCRIT 33.9 % (37.0-47.0); HEMOGLOBIN 11.2 G/DL (12.0-16.0); LYMPHOCYTES % (AUTO) 36.1 % (20.0-45.0); MEAN CORPUSCULAR VOLUME 87 FL (80-99); MONOCYTES % (AUTO) 5.1 % (1.0-10.0); NEUTROPHILS % (AUTO) 54.7 % (45.0-75.0); PLATELET COUNT 156 K/UL (150-450); POTASSIUM 4.1 MMOL/L (3.5-5.1); RED CELL DISTRIBUTION WIDTH 12.8 % (11.6-14.8); SODIUM 144 MMOL/L (136-145); WHITE BLOOD COUNT 4.3 K/UL (4.8-10.8)
[2019-06-25 20:10] LABS: ALANINE AMINOTRANSFERASE 42 U/L (12-78); ALBUMIN 4.6 G/DL (3.4-5.0); ALBUMIN/GLOBULIN RATIO 1.6 (1.0-2.7); ALKALINE PHOSPHATASE 60 U/L (46-116); ASPARTATE AMINO TRANSFERASE 38 U/L (15-37); BILIRUBIN,TOTAL 0.3 MG/DL (0.2-1.0)
--- NOTE | 2019-06-25 20:25 | NUR ---
ED Nurse Note: Patient states, she realised that she does not have Medi-sim[employer], and wants to leave. ER MD notifyed, walked in to pt's room in [facility] to talk to her.
--- NOTE | 2019-06-25 20:28 | NUR ---
ED Nurse Note: Per Dr. Barboza's resolution patient walked out with IV on to smoke.
--- NOTE | 2019-06-25 20:36 | NUR ---
ED Nurse Note: patient is back
[2019-06-25] MEDS ORDERED: PHENERGAN SUPP25 MG RECTAL (21:59)
[2019-06-25] MEDS ORDERED: NORCO 5-325 TA1 EACH ORAL (21:59)
[2019-06-25] MEDS ORDERED: PHENERGAN25 M1 ORAL (21:59)
[2019-06-25] MEDS ORDERED: oxyCODONE HCL/Acetaminophen 5/325mg ORAL ONE (22:00)
[2019-06-25 22:10] VITALS: BP 110/82
--- NOTE | 2019-06-25 22:11 | NUR ---
ER DISCHARGE NOTE: Patient is cleared to be discharged per ERMD, pt is aox4, on room air, with stable vital signs. pt was given dc and prescription instructions, pt was able to verbalize understanding, pt id band and iv site removed without complications. pt is able to ambulate with steady gait. pt took all belongings.
--- NOTE | 2019-06-26 10:36 | Diagnostic Imaging Report ---
Indication: Reason For Exam: ABD PAIN Technique: Single AP view of the chest. Comparison: Chest radiograph dated 04/14/2019 Findings: The cardiomediastinal silhouette is within normal limits when accounting for rotation. Obscuration of the right heart border is likely due to rotation at the posterior airspace consolidation. No pneumothorax or pleural effusion. Osseous structures demonstrate no acute abnormality. IMPRESSION: 1. Obscuration of the right heart border, which is likely due to rotation of the posterior airspace consolidation. 2. Otherwise, no radiographic evidence of acute cardiopulmonary process.
--- NOTE | 2019-06-28 07:30 | Cardiology Report ---
APPROVED REPORT EKG Measurement Heart [id number] Normal sinus rhythm Cannot rule out Anteroseptal infarct, age undetermined Abnormal ECG
== END 2019-06-25 22:11 | disposition home or self-care (01) ==
LOC: EMR 19:46
DX: K29.00 Acute gastritis without bleeding (principal); Z87.11 Personal history of peptic ulcer disease
CPT/HCPCS: 36415; 71045; 80053; 83690; 83735; 84484; 85025; 85610; 85730; 86850; 86900; 86901; 93005; 96361; 96374; 96375; 99284; G0480; J2405; S0028; J7030

== ENCOUNTER 2019-08-08 15:57 | Emergency (ER) | payer MEDICAID ==
[~2019-08-08] VITALS: Ht 175.3 cm; Wt 45.4 kg
[~2019-08-08 15:57] MED LIST changes: +PHENERGAN SUPP25 MG RECTAL; +PHENERGAN25 M1 ORAL
[2019-08-08 16:30] VITALS: BP 101/72
--- NOTE | 2019-08-08 16:36 | Emergency Room Report ---
History of Present Illness General Chief Complaint: Gastrointestinal Bleed Source: Patient Present Illness HPI Patient presents with complaints of epigastric pain and vomiting blood she reports that this started this morning She has a burning sensation as well in the epigastric area denies any diarrhea or lower abdominal pain denies any back or flank pain Patient reports previous GI bleed in the past Reports that she has not been able to follow-up with primary physician since her last visits to the emergency room here Allergies: Coded Allergies: MEPERIDINE (Verified Allergy, Intermediate, Hives, 10/18/12) COPIED FROM UNCODED SECTION PANTOPRAZOLE (Verified Allergy, Intermediate, 03/08/17) MORPHINE (Verified Allergy, Unknown, ITCHING, 03/08/17) TRAMADOL (Verified Allergy, Unknown, 10/10/18) METOCLOPRAMIDE (Verified Adverse Reaction, Intermediate, "MY MUSCLE MUSCLE ARE FREEZING UP", 10/18/12) COPIED FROM UNCODED SECTION Patient History Past Medical History: see triage record Last Menstrual Period: na Reviewed Nursing Documentation: PMH: Agreed; PSxH: Agreed Nursing Documentation-PMH Past Medical History: No History, Except For Hx Cardiac Problems: No - SUBDURAL HEMATOMA SEP 2009 Hx Hypertension: No Hx Pacemaker: No Hx Asthma: No Hx COPD: No Hx Diabetes: No Hx Cancer: No Hx Gastrointestinal Problems: Yes - PUD, gastrectomy Hx Dialysis: No Hx Neurological Problems: No Hx Cerebrovascular Accident: No Hx Transient Ischemic Attacks: No Hx Dementia: No Hx Alzheimer's Disease: No Hx Parkinson's Disease: No Hx Meningitis: No Hx Encephalitis: No Hx Seizures: No Hx Epilepsy: No Hx Multiple Sclerosis: No Hx Cerebral Palsy: No Hx Amyotrophic Lat Sclerosis: No Hx Guillian-[place] Syndrome: No Hx Paralysis: No Hx Peripheral Neuropathy: No Hx Spinal Cord Injury: No Hx Head Trauma: No Hx Traumatic Brain Injury: No Hx Memory Loss: No Hx Concentration Difficulty: No Hx Speech Problem: No Hx Tremors: No Hx Vertigo: No Hx Dizziness: No Hx Syncope: No Hx Headaches: Yes - POST SUBDURAL HEMATOMA REMOVAL Hx Aphasia: No Hx Dysphasia: No Hx Numbness: No Hx Weakness: No Hx Fatigue: No Hx Neurologic Surgery: Yes - HAD SUBDURAL HEMATOMA REMOVED Hx Brain Shunt: No Review of Systems All Other Systems: negative except mentioned in HPI Physical Exam Vital Signs Date Time Temp Pulse Resp B/P (MAP) Pulse Ox O2 Delivery O2 Flow Rate FiO2 08/08/19 16:15 97.5 77 20 104/69 (81) 98 Room Air Sp02 EP Interpretation: reviewed, normal General Appearance: well appearing, no apparent distress Head: normocephalic, atraumatic Eyes: bilateral eye PERRL, bilateral eye EOMI ENT: hearing grossly normal, normal pharynx, TMs + canals normal, uvula midline Neck: full range of motion, supple, no meningismus, no bony tend Respiratory: lungs clear, normal breath sounds, no rhonchi, no respiratory distress, no retraction, no accessory muscle use Cardiovascular #1: normal peripheral pulses, regular rate, rhythm, no edema, no gallop, no JVD, no murmur Gastrointestinal: normal bowel sounds, non tender, soft, no mass, no organomegaly, non-distended, no guarding, no hernia, no pulsatile mass, no rebound Genitourinary: no CVA tenderness Musculoskeletal: normal inspection Neurologic: motor strength/tone normal, 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, oriented x3 , sensory intact, responsive Psychiatric: mood/affect normal Lymphatic: normal inspection, no adenopathy Medical Decision Making Diagnostic Impression: Primary Impression: Vomiting ER Course Multiple differentials including but not limited to upper GI bleed, gastritis, cholecystitis entertained Patient was pending obtaining a CBC she was provided with antiemetic medication At this time however patient reports that she did not want to wait further for her testing And wanted to go home to rest denies any further vomiting while she was here However given that we do not have patient's CBC at this time patient did leave AGAINST MEDICAL ADVICE Rhythm Strip Diag. Results EP Interpretation: yes Rate: 70 Rhythm: NSR, no PVC's, no ectopy Last Vital Signs Date Time Temp Pulse Resp B/P (MAP) Pulse Ox O2 Delivery O2 Flow Rate FiO2 08/08/19 16:15 97.5 77 20 104/69 (81) 98 Room Air Status: improved Disposition: AGAINST MEDICAL ADVICE Condition: Serious Additional Instructions: Please return if you change your mind and want to be followed further Madeline Carreno DO Aug 08, 2019 16:36
[2019-08-08 17:45] VITALS: BP 104/68
== END 2019-08-08 17:45 | disposition left against medical advice (07) ==
LOC: EMR 16:55
DX: R11.10 Vomiting, unspecified (principal); R10.13 Epigastric pain; Z88.6 Allergy status to analgesic agent; Z87.11 Personal history of peptic ulcer disease; Z90.49 Acquired absence of other specified parts of digestive tract
CPT/HCPCS: 99282

== ENCOUNTER 2019-08-13 16:31 | Inpatient (IN) | payer MEDICAID ==
[~2019-08-13] VITALS: Ht 175.3 cm; Wt 45.4 kg
[2019-08-13 16:39] VITALS: BP 120/75
--- NOTE | 2019-08-13 16:49 | NUR ---
ED Nurse Note: PT WALKED IN DUE TO VOMITING OF DARK RED BLOOD WITH ABD PAIN STARTED AN HOUR AGO. DENIES CP, DIZZINESS. AAO X4 AMBULATORY. PT STATES SHE WAS SEEN [facility] A COUPLE OF DAYS AGO FOR SAME SYMPTOM BUT LEFT.
--- NOTE | 2019-08-13 17:31 | Emergency Room Report ---
History of Present Illness General Chief Complaint: Gastrointestinal Bleed Source: Patient, Medical Record (Sue Rodriguez) Present Illness HPI 54-year-old female presents to the emergency department complaining of 8 out of 10 severity of her epigastric abdominal pain in addition to vomiting blood. Patient reports she began vomiting dark blood clots approximately 1 hour prior to arrival and estimates a total of approximately half cup of blood total. Patient reports history of peptic ulcer disease with multiple GI bleeds in the past including need for blood transfusion. Patient reports that last year at [facility] she had pylorectomy performed to reduce her symptoms. Patient states she is currently taking Carafate as she has multiple allergies to different antiacid medications and pain medications. She denies constipation or diarrhea. She denies fatigue, dizziness, syncope or headache at this time. Patient states that she was here last week for similar symptoms however her symptoms subsided and she went home. Patient states that her symptoms have returned. No other aggravating or relieving factors at this time. Patient denies chest pain or palpitations. (Sue Rodriguez) Allergies: Coded Allergies: MEPERIDINE (Verified Allergy, Intermediate, Hives, 10/18/12) COPIED FROM UNCODED SECTION PANTOPRAZOLE (Verified Allergy, Intermediate, 03/08/17) MORPHINE (Verified Allergy, Unknown, ITCHING, 03/08/17) TRAMADOL (Verified Allergy, Unknown, 10/10/18) METOCLOPRAMIDE (Verified Adverse Reaction, Intermediate, "MY MUSCLE MUSCLE ARE FREEZING UP", 10/18/12) COPIED FROM UNCODED SECTION Patient History Past Medical History: see triage record Past Surgical History: other - pylorectomy 2017 Pertinent Family History: none Last Menstrual Period: 3 years ago Now: No Reviewed Nursing Documentation: PMH: Agreed; PSxH: Agreed (Sue Rodriguez) Nursing Documentation-PMH Past Medical History: No History, Except For Hx Cardiac Problems: No - SUBDURAL HEMATOMA SEP 2009 Hx Hypertension: No Hx Pacemaker: No Hx Asthma: No Hx COPD: No Hx Diabetes: No Hx Cancer: No Hx Gastrointestinal Problems: Yes - PUD, gastrectomy Hx Dialysis: No History Of Psychiatric Problem: No Hx Neurological Problems: No Hx Cerebrovascular Accident: No Hx Transient Ischemic Attacks: No Hx Dementia: No Hx Alzheimer's Disease: No Hx Parkinson's Disease: No Hx Meningitis: No Hx Encephalitis: No Hx Seizures: No Hx Epilepsy: No Hx Multiple Sclerosis: No Hx Cerebral Palsy: No Hx Amyotrophic Lat Sclerosis: No Hx Guillian-Pennington Syndrome: No Hx Paralysis: No Hx Peripheral Neuropathy: No Hx Spinal Cord Injury: No Hx Head Trauma: No Hx Traumatic Brain Injury: No Hx Memory Loss: No Hx Concentration Difficulty: No Hx Speech Problem: No Hx Tremors: No Hx Vertigo: No Hx Dizziness: No Hx Syncope: No Hx Headaches: Yes - POST SUBDURAL HEMATOMA REMOVAL Hx Aphasia: No Hx Dysphasia: No Hx Numbness: No Hx Weakness: No Hx Fatigue: No Hx Neurologic Surgery: Yes - HAD SUBDURAL HEMATOMA REMOVED Hx Brain Shunt: No (Sue Rodriguez) Review of Systems All Other Systems: negative except mentioned in HPI (Sue Rodriguez) Physical Exam Vital Signs Date Time Temp Pulse Resp B/P (MAP) Pulse Ox O2 Delivery O2 Flow Rate FiO2 08/13/19 16:39 98.2 68 16 120/75 (90) 99 Room Air (Sue Rodriguez) Medical Decision Making PA Attestation Dr. Macias is my supervising Physician whom patient management has been discussed with. (Sue Rodriguez) Diagnostic Impression: Primary Impression: GIB (gastrointestinal bleeding) Qualified Codes: K92.2 - Gastrointestinal hemorrhage, unspecified ER Course 54-year-old female presents to the emergency department complaining of 8 out of 10 severity of her epigastric abdominal pain in addition to vomiting blood. Patient reports she began vomiting dark blood clots approximately 1 hour prior to arrival and estimates a total of approximately half cup of blood total. Patient reports history of peptic ulcer disease with multiple GI bleeds in the past including need for blood transfusion. Patient reports that last year at [facility] she had pylorectomy performed to reduce her symptoms. Patient states she is currently taking Carafate as she has multiple allergies to different antiacid medications and pain medications. She denies constipation or diarrhea. She denies fatigue, dizziness, syncope or headache at this time. Patient states that she was here last week for similar symptoms however her symptoms subsided and she went home. Patient states that her symptoms have returned. No other aggravating or relieving factors at this time. Patient denies chest pain or palpitations. Ddx considered but are not limited to Diverticulitis, acute appy, diarrhea,UC, PUD, GE, pancreatitis, gallstone, anemia, Jaylin-Smith tear Vital signs: are WNL, pt. is afebrile H&PE are most consistent with pt. with complicated GI history with return of Upper GI bleed ORDERS: CBC, CMP, lipase, UA -PT/PTT -UDS: ED INTERVENTIONS: - - 1000NS, IV pepcid and zofran 4mg. DISPOSITION: at this time pt. will be admitted to Dr. Ochoa for Acute GI Bleed. Dr. Ochoa agreed to admit the pt. and to continue pt. care management. Labs Test 08/13/19 17:49 08/13/19 18:53 White Blood Count 5.0 K/UL (4.8-10.8) Red Blood Count 4.02 M/UL (4.20-5.40) Hemoglobin 11.5 G/DL (12.0-16.0) Hematocrit 35.3 % (37.0-47.0) Mean Corpuscular Volume 88 FL (80-99) Mean Corpuscular Hemoglobin 28.7 PG (27.0-31.0) Mean Corpuscular Hemoglobin Concent 32.7 G/DL (32.0-36.0) Red Cell Distribution Width 13.6 % (11.6-14.8) Platelet Count 127 K/UL (150-450) Mean Platelet Volume 6.6 FL (6.5-10.1) Neutrophils (%) (Auto) 61.3 % (45.0-75.0) Lymphocytes (%) (Auto) 31.0 % (20.0-45.0) Monocytes (%) (Auto) 3.3 % (1.0-10.0) Eosinophils (%) (Auto) 3.5 % (0.0-3.0) Basophils (%) (Auto) 1.0 % (0.0-2.0) Prothrombin Time 11.4 SEC (9.30-11.50) Prothromb Time International Ratio 1.1 (0.9-1.1) Activated Partial Thromboplast Time 19 SEC (23-33) Sodium Level 142 MMOL/L (136-145) Potassium Level 3.9 MMOL/L (3.5-5.1) Chloride Level 108 MMOL/L (98-107) Carbon Dioxide Level 26 MMOL/L (21-32) Anion Gap 8 mmol/L (5-15) Blood Urea Nitrogen 12 mg/dL (7-18) Creatinine 0.6 MG/DL (0.55-1.30) Estimat Glomerular Filtration Rate > 60 mL/min (>60) Glucose Level 86 MG/DL (74-106) Calcium Level 8.6 MG/DL (8.5-10.1) Total Bilirubin 0.2 MG/DL (0.2-1.0) Aspartate Amino Transf (AST/SGOT) 22 U/L (15-37) Alanine Aminotransferase (ALT/SGPT) 30 U/L (12-78) Alkaline Phosphatase 95 U/L (46-116) Total Protein 6.3 G/DL (6.4-8.2) Albumin 3.5 G/DL (3.4-5.0) Globulin 2.8 g/dL Albumin/Globulin Ratio 1.2 (1.0-2.7) Lipase 65 U/L (73-393) (Sue Rodriguez) ER Course Patient seen by RENE initially. Prior history of upper GI bleed with a gastrectomy. She reports having increased hematemesis over the past few weeks which recurred approximately 2 hours prior to arrival. Patient had prior history of gastric ulcer. She had previous gastrectomy.Reports significant hematemesis. Patient was discussed with Dr. Ochoa for inpatient management as well as Dr. Guerra for GI consult. Labs Test 08/13/19 17:49 White Blood Count 5.0 K/UL (4.8-10.8) Red Blood Count 4.02 M/UL (4.20-5.40) Hemoglobin 11.5 G/DL (12.0-16.0) Hematocrit 35.3 % (37.0-47.0) Mean Corpuscular Volume 88 FL (80-99) Mean Corpuscular Hemoglobin 28.7 PG (27.0-31.0) Mean Corpuscular Hemoglobin Concent 32.7 G/DL (32.0-36.0) Red Cell Distribution Width 13.6 % (11.6-14.8) Platelet Count 127 K/UL (150-450) Mean Platelet Volume 6.6 FL (6.5-10.1) Neutrophils (%) (Auto) 61.3 % (45.0-75.0) Lymphocytes (%) (Auto) 31.0 % (20.0-45.0) Monocytes (%) (Auto) 3.3 % (1.0-10.0) Eosinophils (%) (Auto) 3.5 % (0.0-3.0) Basophils (%) (Auto) 1.0 % (0.0-2.0) Prothrombin Time 11.4 SEC (9.30-11.50) Prothromb Time International Ratio 1.1 (0.9-1.1) Activated Partial Thromboplast Time 19 SEC (23-33) Sodium Level 142 MMOL/L (136-145) Potassium Level 3.9 MMOL/L (3.5-5.1) Chloride Level 108 MMOL/L (98-107) Carbon Dioxide Level 26 MMOL/L (21-32) Anion Gap 8 mmol/L (5-15) Blood Urea Nitrogen 12 mg/dL (7-18) Creatinine 0.6 MG/DL (0.55-1.30) Estimat Glomerular Filtration Rate > 60 mL/min (>60) Glucose Level 86 MG/DL (74-106) Calcium Level 8.6 MG/DL (8.5-10.1) Total Bilirubin 0.2 MG/DL (0.2-1.0) Aspartate Amino Transf (AST/SGOT) 22 U/L (15-37) Alanine Aminotransferase (ALT/SGPT) 30 U/L (12-78) Alkaline Phosphatase 95 U/L (46-116) Total Protein 6.3 G/DL (6.4-8.2) Albumin 3.5 G/DL (3.4-5.0) Globulin 2.8 g/dL Albumin/Globulin Ratio 1.2 (1.0-2.7) Lipase 65 U/L (73-393) (Keyur Macias MD) Chest X-Ray Diagnostic Results Chest X-Ray Diagnostic Results : Chest X-Ray Ordered: Yes # of Views/Limited/Complete: 1 View Indication: Other - abd pain EP Interpretation: Yes PA Xray: Interpretation reviewed, by supervising MD, and agrees with findings. Interpretation: no consolidation, no effusion, no pneumothorax, no acute cardiopulmonary disease, other - NO free air under the diaphragm. Impression: No acute disease Electronically Signed by: Sue Rodriguez PA-C (Sue Rodriguez) Last Vital Signs Date Time Temp Pulse Resp B/P (MAP) Pulse Ox O2 Delivery O2 Flow Rate FiO2 08/13/19 16:39 98.2 68 16 120/75 (90) 99 Room Air (Sue Rodriguez) Disposition: ADMITTED INPATIENT Condition: Serious Physician Consult: Dr. Newby (Sue Rodriguez) Scripts Famotidine* (Pepcid 20mg tablet*) 20 Mg Tablet 20 MG ORAL TWICE A DAY, #60 TAB 0 Refills Prov: Lee Ochoa MD 08/14/19 Sucralfate* (CARAFATE*) 1 Gm Tablet 1 GM ORAL Q6HR for 30 Days, #120 TAB Prov: Lee Ochoa MD 08/14/19 Sue Rodriguez Aug 13, 2019 17:31 Keyur Macias MD Aug 13, 2019 19:23
--- NOTE | 2019-08-13 17:45 | NUR ---
ED Nurse Note: RN unable to draw blood and establish an IV access. Charge nurse notified.
[2019-08-13 17:58] LABS: EOSINOPHILS % (AUTO) 3.5 % (0.0-3.0); HEMATOCRIT 35.3 % (37.0-47.0); HEMOGLOBIN 11.5 G/DL (12.0-16.0); MEAN CORPUSCULAR VOLUME 88 FL (80-99); MONOCYTES % (AUTO) 3.3 % (1.0-10.0); NEUTROPHILS % (AUTO) 61.3 % (45.0-75.0); PLATELET COUNT 127 K/UL (150-450); RED BLOOD COUNT 4.02 M/UL (4.20-5.40); RED CELL DISTRIBUTION WIDTH 13.6 % (11.6-14.8)
[2019-08-13 18:04] LABS: ANION GAP 8 mmol/L (5-15); BLOOD UREA NITROGEN 12 mg/dL (7-18); CALCIUM 8.6 MG/DL (8.5-10.1); CARBON DIOXIDE 26 MMOL/L (21-32); CHLORIDE 108 MMOL/L (98-107); CREATININE 0.6 MG/DL (0.55-1.30); POTASSIUM 3.9 MMOL/L (3.5-5.1); SODIUM 142 MMOL/L (136-145)
[2019-08-13 18:09] LABS: ALANINE AMINOTRANSFERASE 30 U/L (12-78); ALBUMIN 3.5 G/DL (3.4-5.0); ALBUMIN/GLOBULIN RATIO 1.2 (1.0-2.7); ALKALINE PHOSPHATASE 95 U/L (46-116); ASPARTATE AMINO TRANSFERASE 22 U/L (15-37); BILIRUBIN,TOTAL 0.2 MG/DL (0.2-1.0); INR 1.1 (0.9-1.1)
--- NOTE | 2019-08-13 18:37 | Diagnostic Imaging Report ---
History: ABD PAIN Exam: XR CXR 1 VIEW Comparison: 06/25/2019 FINDINGS: The lungs are clear. The cardiac and mediastinal contours are within limits. Surgical clips at the visualized upper abdomen again noted. Visualized osseous structures appear within limits. IMPRESSION: No evidence of acute disease.
[2019-08-13] MEDS ORDERED: Hydromorphone 0.5mg/0.5ml inj IVP ONE (18:45)
--- NOTE | 2019-08-13 19:09 | NUR ---
HAND-OFF: Report given to dangelo VILLAREAL.
--- NOTE | 2019-08-13 19:20 | NUR ---
ED Nurse Note: Received report from DIONNA Reynolds.
--- NOTE | 2019-08-13 19:23 | NUR ---
ED Nurse Note: Called lab to follow up for type and screen order.
[2019-08-13 19:32] VITALS: BP 120/80
[2019-08-13] MEDS ORDERED: Zolpidem 5mg tab ORAL PRN (19:45)
[2019-08-13 19:46] LABS: APPEARANCE,URINE CLOUDY; BILIRUBIN, URINE NEGATIVE (NEGATIVE); GLUCOSE, URINE (UA) NEGATIVE (NEGATIVE); KETONES,URINE 2+ (NEGATIVE); LEUKOCYTE ESTERASE ,URINE 1+ (NEGATIVE); NITRITE,URINE NEGATIVE (NEGATIVE); PH,URINE 6 (4.5-8.0); PROTEIN,URINE 2+ (NEGATIVE); UROBILINOGEN,URINE 4 MG/DL (0.0-1.0)
[2019-08-13 19:47] LABS: COLOR,URINE YELLOW
[2019-08-13] MEDS: Sucralfate 1gm tab ORAL SCH (20:00)
--- NOTE | 2019-08-13 20:13 | NUR ---
ED Nurse Note: Report given to DIONNA Brito in telemetry.
--- NOTE | 2019-08-13 20:16 | NUR ---
ED Nurse Note: Per TAN, Carafate scheduled at 1999 to be given in inpatient unit.
--- NOTE | 2019-08-13 20:29 | NUR ---
ED Nurse Note: Per charge nurse, VRE and MRSA swab only done if patient was admitted into inpatient in last visit.
--- NOTE | 2019-08-13 20:30 | NUR ---
ED Nurse Note: Patient transported on gurney to telemetry unit on awake overnight monitor with 1 RN and radiation technician in stable condition.
[2019-08-13 20:52] VITALS: BP 144/88
--- NOTE | 2019-08-13 20:52 | NUR ---
NURSE NOTES: Received pt from dallin Edward. Pt arrived to floor alert, talkative, and in constant abdominal pain. Pt reports that pain meds aren't effective. Will call Dr. Ochoa. Bed in lowest position. Skin intact. Call light within reach. Pt has had no episodes of emesis during admission. Will continue to monitor.
[2019-08-13] MEDS ORDERED: Milk of Magnesia 30ml Ud ORAL PRN (21:00)
[2019-08-13] MEDS ORDERED: Ciprofloxacin Opth Soln 2.5ml BOTH EYES SCH (21:00)
[2019-08-13] MEDS: ALPRAZolam 0.25mg tab ORAL SCH (21:02)
[2019-08-13] MEDS: HYDROcodone/Acetamin 5/325 tab ORAL PRN (21:03)
[2019-08-13] MEDS: 1/2NS w/KCl 20mEq 1000ml 1,000 ML IV SCH (21:50)
--- NOTE | 2019-08-13 22:55 | NUR ---
NURSE NOTES: Called and left a message with Dr. Ochoa regarding pts request for stronger pain meds and a nicotene patch. Dr. Ochoa gave orders for the patch and reported that anything else will have to wait until he assessed her tomorrow. Will input orders and will continue to monitor.
[2019-08-14] VITALS: BP 113/71
[2019-08-14] MEDS: HYDROcodone/Acetamin 5/325 tab ORAL PRN ×2 (04:38→10:39)
[2019-08-14] MEDS: Sucralfate 1gm tab ORAL SCH ×3 (06:00→12:16)
--- NOTE | 2019-08-14 06:58 | NUR ---
NURSE NOTES: I witnessed pt giving written as well as verbal consent for Dr. Shields to go through her medical records at [facility]. Consent signed and put in chart.
--- NOTE | 2019-08-14 07:06 | NUR ---
HAND-OFF: Report given to DIONNA Albert. Pt in pain but stable.
--- NOTE | 2019-08-14 07:10 | NUR ---
NURSE NOTES: Nurse report given by DIONNA Brito. Patient's sleeping in bed but easily awake, AO x 4, no s/s of distress or SOB. Bed low and locked, call light within reach, side rails x 2, manager food is on. IV is running fluid, no s/s of tenderness or infiltration. All needs met. Will continue to monitor closely.
[2019-08-14 07:21] LABS: EOSINOPHILS % (AUTO) 7.5 % (0.0-3.0); HEMATOCRIT 30.4 % (37.0-47.0); HEMOGLOBIN 10.2 G/DL (12.0-16.0); LYMPHOCYTES % (AUTO) 37.9 % (20.0-45.0); MEAN CORPUSCULAR VOLUME 88 FL (80-99); MONOCYTES % (AUTO) 5.5 % (1.0-10.0); PLATELET COUNT 162 K/UL (150-450); RED BLOOD COUNT 3.47 M/UL (4.20-5.40); RED CELL DISTRIBUTION WIDTH 13.7 % (11.6-14.8); WHITE BLOOD COUNT 3.9 K/UL (4.8-10.8)
[2019-08-14 07:33] LABS: ANION GAP 5 mmol/L (5-15); BLOOD UREA NITROGEN 9 mg/dL (7-18); CALCIUM 8.1 MG/DL (8.5-10.1); CARBON DIOXIDE 29 MMOL/L (21-32); CHLORIDE 111 MMOL/L (98-107); CREATININE 0.5 MG/DL (0.55-1.30); POTASSIUM 3.3 MMOL/L (3.5-5.1); SODIUM 145 MMOL/L (136-145)
[2019-08-14 08:00] VITALS: BP 123/79
[2019-08-14] MEDS: ALPRAZolam 0.25mg tab ORAL SCH (08:27)
[2019-08-14] MEDS: 1/2NS w/KCl 20mEq 1000ml 1,000 ML IV SCH (08:27)
--- NOTE | 2019-08-14 09:15 | Consultation ---
DATE OF CONSULTATION: 08/14/2019 NOTE: CANCELED DICTATION Daniel Shields M.D. DR: SATURNINO JOB#: [id number] CC:
--- NOTE | 2019-08-14 09:35 | NUR ---
RD ASSESSMENT & RECOMMENDATIONS SEE CARE ACTIVITY FOR COMPLETE ASSESSMENT DAILY ESTIMATED NEEDS: Needs based on Underweight 48.2kg 30-35 kcals/kg 0756-3043 total kcals 1-1.5 g protein/kg 48-72 g total protein 25-30 mL/kg 9473-4865 total fluid mLs NUTRITION DIAGNOSIS: Increased kcal and pro needs r/t underweight status as evidenced by pt is @73% [place] Body Weight, BMI underweight per guidelines, adm w/ possible GIB, currently on CLD. CURRENT DIET: CLd PO DIET RECOMMENDATIONS: Per MD ADDITIONAL RECOMMENDATIONS: 1) Add Ensure Clear to clear liquid diet 2) F/up w/ H&P 3) Obtain a standing weight for accurate CBW 4) Replete lytes as needed (Low K 3.3)
--- NOTE | 2019-08-14 10:27 | NUR ---
NURSE NOTES: Left messages to Dr. Ochoa and Dr. Shields regarding patient's chief complain of pain 06/02. She stated that her pain is in the abdomen, 06/02 and the norco is not helping. I told her the next dose will be at 1100 and she stated: " i'm not taking it because it's not helping. IT"S NOT HELPING." Patient yelled. Charge nurse and primary nurse already explained to her that Dr. Ochoa will come to see her soon and she has to wait for him to get her new medication order if he wants to. She refused to take her 1200 sucralfate which nurse explain it will also help with the abdomen. Awaiting for Dr. Ochoa's response.
[2019-08-14 12:00] VITALS: BP 113/51
--- NOTE | 2019-08-14 15:11 | NUR ---
NURSE NOTES: Patient requested to be discharged. Dr. Ochoa verbally ordered for discharge. Discharge ordered and carried out. Patient' signed belonging list. Patient eagerly to leave and nurse is unable to complete discharge order documents. Patient signed on discharge instruction in the back of the form. Patient did not want to wait for Dr. Ochoa to complete discharge documents. Dr. Ochoa prescribed patient with written prescription. Prescription is copied and kept in the patient's chart. IV removed, ID discarded properly, bookkeeping clerk removed. Patient ambulates with steady gait, AO x4, no s/s of distress or SOB. Patient's discharge back to home with private vehicle. Nurse walked patient out the hospital unit at 1515. Charge nurse and Dr Ochoa aware that patient left the hospital.
--- NOTE | 2019-08-14 15:15 | Consultation ---
DATE OF CONSULTATION: 08/14/2019 GASTROENTEROLOGY CONSULTATION CONSULTING PHYSICIAN: Daniel Shields M.D. CHIEF COMPLAINT: I was asked to see this patient by Dr. Lee Ochoa for evaluation of gastrointestinal bleeding. HISTORY OF PRESENT ILLNESS: The patient is a 54-year-old white woman, who comes into the hospital with one-day history of severe epigastric abdominal pain and multiple bouts of red emesis. She states her stools are brown and normal. 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 Review of her records showed that she had a history of nonsteroidal anti-inflammatory drug associated peptic ulcer disease and she underwent a distal gastrectomy and vagotomy in 2005. Subsequently, she was found to have lesions with anastomosis with bleeding and she therefore underwent a partial gastrectomy with Vicky-en-Y gastrojejunostomy in June 2017. 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 The patient is now here for recurrence of her symptoms. The [facility] records also notes a concern for severe factitious disorder, which was verified by Psychiatry services. Details of this information can be found on a note dated 08/09/2019. PAST MEDICAL HISTORY: History of recurrent gastrointestinal bleeding and multiple gastrointestinal surgeries as described above. Currently, the patient is status post total gastrectomy. FAMILY HISTORY: Noncontributory. SOCIAL HISTORY: The patient smokes 1 pack of cigarettes a week. She does not drink alcohol. ALLERGIES: Protonix, Demerol, morphine, Reglan, and tramadol. MEDICATIONS: See chart list for details. REVIEW OF SYSTEMS: Otherwise negative. PHYSICAL EXAMINATION: GENERAL: Thin white woman, seen in her room in no apparent distress. HEENT: Normocephalic, atraumatic. Sclerae are anicteric. Oropharynx clear. NECK: Supple. CHEST: Clear to auscultation. CARDIOVASCULAR: Revealed a regular rate. ABDOMEN: Soft. There is epigastric tenderness without rebound or guarding. EXTREMITIES: Revealed no edema. LABORATORY DATA: Noted. ASSESSMENT: This patient presents with one-day history of hematemesis and epigastric abdominal pain, which is recurrent for this patient. The patient had a total gastrectomy for recurrence of symptoms. Her blood count will be checked on a p.r.n. basis and stool occult blood will be checked as well. Her histamine 2 loreta had been initiated although in the setting of total gastrectomy would be questionable. Consideration will be made to perform an endoscopy to evaluate the upper GI tract. Carafate should be continued. RECOMMENDATION: Per above discussion and per orders in the chart. Daniel Shields M.D. DR: ROWENA JOB#: [id number] CC:
[2019-08-14] MEDS ORDERED: SUCRALFATE1 GM ORAL (15:25)
[2019-08-14] MEDS ORDERED: FAMOTIDINE20 MG ORAL (15:25)
--- NOTE | 2019-08-14 21:00 | History and Physical Report ---
DATE OF ADMISSION: 08/13/2019 PERTINENT HISTORY: The patient presents with hematemesis and abdominal pain. She has had a total gastrectomy in the past apparently for peptic ulcer disease. She has been taking Carafate at home. She has apparently had multiple admissions to [facility], multiple endoscopic procedures. Also of note, at [facility] records she has been suspected of pain seeking behavior and surreptitiously taking medications that were not prescribed in the hospital. SURGICAL HISTORY: Gastrectomy. She has also had a subdural hematoma, appendectomy. ALLERGIES: Meperidine, Protonix, morphine, tramadol, and metoclopramide. MEDICATIONS: Medications at home include Xanax 1 mg three times a day as needed, Carafate 1 g four times a day, and Zofran OTC as needed. HABITS: She is a cigarette smoker. Denies alcohol or drugs. SOCIAL HISTORY: She lives with a roommate. SYSTEM REVIEW: HEAD, EYES, EARS, NOSE, AND THROAT: Vision and hearing is good. ENDOCRINE: No diabetes or thyroid disease. PULMONARY: No asthma, TB, or chronic cough. CARDIAC: No angina or WI. GASTROINTESTINAL: Gastrointestinal bleeding, as above. GENITOURINARY: No dysuria, hematuria, or kidney stones. NEUROLOGIC: No CVA, syncope, or seizures. PHYSICAL EXAMINATION: GENERAL: The patient is alert lady, in no acute distress. Thin. VITAL SIGNS: Temperature 97.9, respirations 18, pulse 67, and blood pressure 113/51. HEAD, EYES, EARS, NOSE, AND THROAT: Sclerae are nonicteric. Ocular motions intact in all directions. Oral mucosa moist. NECK: No adenopathy. LUNGS: Clear. HEART: Regular rate and rhythm. ABDOMEN: Soft. There is no focal tenderness. EXTREMITIES: No edema, cyanosis, or clubbing. LABORATORY DATA: Pertinent labs show hemoglobin of 10.2. Potassium 3.9, repeat 3.3. IMPRESSION: 1. Upper gastrointestinal bleeding. 2. History of gastrectomy. 3. History of pain seeking behavior in the past. 4. History of anxiety. PLAN: Serial labs and observe. She is no longer having hematemesis. She wishes to go home. See the discharge summary. Lee Ochoa M.D. DR: FIDE JOB#: [id number] CC:
--- NOTE | 2019-08-14 21:30 | Discharge Summary ---
DATE OF ADMISSION: 08/13/2019 DATE OF DISCHARGE: 08/14/2019 PERTINENT HISTORY: The patient comes in with the reported hematemesis. PHYSICAL EXAMINATION: See the dictated History and Physical. No changes. COURSE IN THE HOSPITAL: The patient had no major bleeding while in the hospital. She was asking for narcotics that were declined by the physician, as she had no real distress. She was anxious and asked for Xanax. She wished to go home and I agreed this since she has had multiple GI workups in the past, that staying in the hospital additional days would no longer be of major help, and she was discharged home in stable condition. FINAL DIAGNOSES: 1. Upper intestinal bleeding. 2. History of multiple gastrointestinal workups in the past. 3. History of gastrectomy. 4. Anxiety disorder. 5. See the History and Physical for full details. DISCHARGE DISPOSITION: I gave her the following prescription: Xanax 1 mg three times a day, #30 as needed; Pepcid 40 mg daily; and Zofran OTC 4 mg every four hours as needed, #20. She already has the Carafate 1 g four times a day which she takes at home. She is to follow up with her prior physicians. Lee Ochoa M.D. DR: FIDE JOB#: [id number] CC:
== END 2019-08-14 15:26 | disposition home or self-care (01) | DRG 253 ==
LOC: EMR 17:21 → EDBEDREQ 20:02 → 2E 20:14
DX: K92.2 Gastrointestinal hemorrhage, unspecified (principal); Z90.3 Acquired absence of stomach [part of]; F41.9 Anxiety disorder, unspecified; F17.200 Nicotine dependence, unspecified, uncomplicated; Z88.6 Allergy status to analgesic agent; Z88.8 Allergy status to other drugs, medicaments and biological substances
CPT/HCPCS: 36415; 71045; 80048; 80053; 80307; 81003; 83690; 85025; 85610; 85730; 86850; 86900; 86901; 87086; 93005; 96374; 96375; 99285; J2405

== ENCOUNTER 2020-04-09 15:28 | Emergency (ER) | payer MEDICAID, OTHER ==
[~2020-04-09] VITALS: Ht 175.3 cm; Wt 45.4 kg
[~2020-04-09 15:28] MED LIST changes: +FAMOTIDINE20 MG ORAL; +SUCRALFATE1 GM ORAL
[2020-04-09 15:34] VITALS: BP 113/82
--- NOTE | 2020-04-09 15:52 | Emergency Room Report ---
History of Present Illness General Chief Complaint: Upper Extremity Injury Source: Patient (Sue Rodriguez) Present Illness HPI 54-year-old female who is right-hand dominant presents to the emergency department complaining of 7 out of 10 severity pain localized to the left hand since last night. Patient reports a large picture frame fell on her hand and she had acute onset of pain. Patient reports some swelling and bruising. Patient states that her symptoms did not improve overnight. Patient reports pain exacerbation upon palpation or movement of the left hand. She denies paresthesias. She denies bleeding at this time. No other aggravating or relieving factors. Patient reports she took Tylenol with no relief. (Sue Rodriguez) Allergies: Coded Allergies: MEPERIDINE (Verified Allergy, Intermediate, Hives, 10/18/12) COPIED FROM UNCODED SECTION PANTOPRAZOLE (Verified Allergy, Intermediate, 03/08/17) MORPHINE (Verified Allergy, Unknown, ITCHING, 03/08/17) TRAMADOL (Verified Allergy, Unknown, 10/10/18) METOCLOPRAMIDE (Verified Adverse Reaction, Intermediate, "MY MUSCLE MUSCLE ARE FREEZING UP", 10/18/12) COPIED FROM UNCODED SECTION COVID-19 Screening Contact w/high risk pt: No Experienced COVID-19 symptoms?: No COVID-19 Testing performed WRECKER DRIVER: No (Sue Rodriguez) Patient History Past Medical History: see triage record Past Surgical History: none Pertinent Family History: none Now: No Reviewed Nursing Documentation: PMH: Agreed; PSxH: Agreed (Sue Rodriguez) Nursing Documentation-PMH Past Medical History: No History, Except For Hx Cardiac Problems: No - SUBDURAL HEMATOMA SEP 2009 Hx Hypertension: No Hx Pacemaker: No Hx Asthma: No Hx COPD: No Hx Diabetes: No Hx Cancer: No Hx Gastrointestinal Problems: Yes - PUD, gastrectomy Hx Dialysis: No Hx Neurological Problems: No Hx Cerebrovascular Accident: No Hx Transient Ischemic Attacks: No Hx Dementia: No Hx Alzheimer's Disease: No Hx Parkinson's Disease: No Hx Meningitis: No Hx Encephalitis: No Hx Seizures: No Hx Epilepsy: No Hx Multiple Sclerosis: No Hx Cerebral Palsy: No Hx Amyotrophic Lat Sclerosis: No Hx Guillian-[place] Syndrome: No Hx Paralysis: No Hx Peripheral Neuropathy: No Hx Spinal Cord Injury: No Hx Head Trauma: No Hx Traumatic Brain Injury: No Hx Memory Loss: No Hx Concentration Difficulty: No Hx Speech Problem: No Hx Tremors: No Hx Vertigo: No Hx Dizziness: No Hx Syncope: No Hx Headaches: Yes - POST SUBDURAL HEMATOMA REMOVAL Hx Aphasia: No Hx Dysphasia: No Hx Numbness: No Hx Weakness: No Hx Fatigue: No Hx Neurologic Surgery: Yes - HAD SUBDURAL HEMATOMA REMOVED Hx Brain Shunt: No (Sue Rodriguez) Review of Systems All Other Systems: negative except mentioned in HPI (Sue Rodriguez) Physical Exam Vital Signs Date Time Temp Pulse Resp B/P (MAP) Pulse Ox O2 Delivery O2 Flow Rate FiO2 04/09/20 15:33 98.2 85 16 113/82 (92) 95 Room Air Sp02 EP Interpretation: reviewed, normal General Appearance: no apparent distress, alert, GCS 15, non-toxic Head: normocephalic, atraumatic Eyes: bilateral eye normal inspection, bilateral eye PERRL ENT: hearing grossly normal, normal voice Neck: full range of motion Respiratory: lungs clear, normal breath sounds, speaking full sentences Cardiovascular #1: regular rate, rhythm, normal capillary refill Cardiovascular #2: 2+ radial (R), 2+ radial (L) Musculoskeletal: normal range of motion, gait/station normal, tender - TTP to the dorsum of the left 4th and 5th metacarpals, bruising over the 4th. NVI. FROM of fingers. Neurologic: alert, motor strength/tone normal, distal neuro normal, oriented x3 , sensory intact, responsive, speech normal, grossly normal, normal inspection Psychiatric: judgement/insight normal Skin: Ecchymosis/Bruising - Of the left fourth metacarpal Lymphatic: no adenopathy (Sue Rodriguez) Medical Decision Making PA Attestation Dr. Barboza Is my supervising Physician whom patient management has been discussed with. (Sue Rodriguez) Diagnostic Impression: Primary Impression: Contusion of left hand, initial encounter ER Course 54-year-old female who is right-hand dominant presents to the emergency department complaining of 7 out of 10 severity pain localized to the left hand since last night. Patient reports a large picture frame fell on her hand and she had acute onset of pain. Patient reports some swelling and bruising. Patient states that her symptoms did not improve overnight. Patient reports pain exacerbation upon palpation or movement of the left hand. She denies paresthesias. She denies bleeding at this time. No other aggravating or relieving factors. Patient reports she took Tylenol with no relief. Ddx considered but are not limited to Fracture, dislocation, contusion, Sprain/ Strain/Spasm, boxers fracture just to name a few Vital signs: are WNL, pt. is afebrile. H&PE are most consistent with musculoskeletal injury will perform imaging to r/ o fractures/dislocations. ORDERS: - X-ray Left Hand 3 views - negative for fx, Dislocation, or significant soft tissue injury, per preliminary read in ED, and signed by RENE Rodriguez , my supervising physician has reviewed, and agrees with my interpretation. ED INTERVENTIONS: - Lolita 5mg PO -Left hand/wrist volar comfort Splint --Denied by pt. -- Left arm Sling Denied by pt. DISCHARGE: At this time pt. is stable for d/c to home. Will provide printed patient care instructions, and any necessary prescriptions. Care plan and follow up instructions have been discussed with the patient prior to discharge. (Sue Rodriguez) Other X-Ray Diagnostic Results Other X-Ray Diagnostic Results : X-Ray ordered: Left Hand # of Views/Limited Vs Complete: 3 View Indication: Pain EP Interpretation: Yes PA Xray: Interpretation reviewed, by supervising MD, and agrees with findings. Interpretation: no dislocation, no soft tissue swelling, no fractures Impression: No acute disease Electronically Signed by: Sue Rodriguez PA-C (Sue Rodriguez) Other X-Ray Diagnostic Results : Electronically Signed by: Simba Carvajal documentation of Xray reviewed by me and is accurate, Salazar Barboza MD (Salazar Barboza MD) Last Vital Signs Date Time Temp Pulse Resp B/P (MAP) Pulse Ox O2 Delivery O2 Flow Rate FiO2 04/09/20 15:34 98.2 85 16 113/82 95 Room Air (Sue Rodriguez) Disposition: HOME, SELF-CARE Condition: Stable Scripts Acetaminophen* (TYLENOL EXTRA STRENGTH*) 500 Mg Tablet 500 MG ORAL Q6H, #20 TAB 0 Refills Prov: Sue Rodriguez 04/09/20 Referrals: [facility] Patient Instructions: Contusion, [id number] Additional Instructions: Take medications as directed. ~ ~ An emergent medical condition has not been identified based on this patients presentation, exam and any necessary testing/imaging. The patient is determined to be stable for outpatient follow-up and management of symptoms by a primary care provider. Follow up with an FILM AND VIDEO GRAPHICS DESIGNER in 3-5 days, even if your symptoms have resolved. --Please review list of primary care clinics, if you do not already have a primary care provider who can give you an Orthopedic Referral. Return sooner to ED if new symptoms occur, or current symptoms become worse. - Please note that this Emergency Department Report was dictated using DF[employer] aide technology software, occasionally this can lead to erroneous entry secondary to interpretation by the dictation equipment. Sue Rodriguez Apr 09, 2020 15:52 Salazar Barboza MD Apr 10, 2020 17:33
[2020-04-09] MEDS ORDERED: HYDROcodone/Acetamin 5/325 tab ORAL ONE (16:00)
[2020-04-09] MEDS ORDERED: TYLENOL EXTRA500 MG ORAL (16:18)
[2020-04-09 16:22] VITALS: BP 121/75
--- NOTE | 2020-04-09 16:43 | Diagnostic Imaging Report ---
Indication: Left hand pain Technique: 3 views hand Comparison: none Findings: No acute fractures. No dislocations. The joint spaces are preserved. Impression: Negative
== END 2020-04-09 16:22 | disposition home or self-care (01) ==
LOC: EMR 15:54
DX: S60.222A Contusion of left hand, initial encounter (principal); X58.XXXA Exposure to other specified factors, initial encounter; Y92.9 Unspecified place or not applicable; Z88.6 Allergy status to analgesic agent; Z88.8 Allergy status to other drugs, medicaments and biological substances; Z87.11 Personal history of peptic ulcer disease; Z90.49 Acquired absence of other specified parts of digestive tract
CPT/HCPCS: 73130; Z7502; 99283

== ENCOUNTER 2020-06-18 12:46 | Inpatient (IN) | payer OTHER ==
[~2020-06-18] VITALS: Ht 175.3 cm; Wt 56.2 kg
[~2020-06-18 12:46] MED LIST changes: +TYLENOL EXTRA500 MG ORAL
[2020-06-18] MEDS ORDERED: HYDROmorphone 1mg/ml Carpuject IVP ONE (13:30)
--- NOTE | 2020-06-18 14:04 | Emergency Room Report ---
History of Present Illness General Chief Complaint: Gastrointestinal Bleed Source: Patient Present Illness HPI 55-year-old female with history of peptic ulcer disease and upper GI bleed here with hematemesis. Patient says that she has had severe vomiting for the past 2 days and that earlier today she vomited bright red blood. She has felt lightheaded and pale and nauseous. Says she has an anaphylactic reaction to Protonix. She has undergone EGDs in the past for treatment of peptic ulcers causing bleeding. She is in severe pain as well. She is having sharp epigastric abdominal pain. No chest pain, palpitations, shortness of breath, back pain, diarrhea, dysuria. Allergies: Coded Allergies: MEPERIDINE (Verified Allergy, Intermediate, Hives, 10/18/12) COPIED FROM UNCODED SECTION PANTOPRAZOLE (Verified Allergy, Intermediate, 03/08/17) MORPHINE (Verified Allergy, Unknown, ITCHING, 03/08/17) TRAMADOL (Verified Allergy, Unknown, 10/10/18) METOCLOPRAMIDE (Verified Adverse Reaction, Intermediate, "MY MUSCLE MUSCLE ARE FREEZING UP", 10/18/12) COPIED FROM UNCODED SECTION COVID-19 Screening Contact w/high risk pt: No Experienced COVID-19 symptoms?: No COVID-19 Screening: Negative COVID-19 COVID-19 Testing Source: clinic Patient History Now: No Nursing Documentation-PMH Hx Cardiac Problems: No - SUBDURAL HEMATOMA SEP 2009 Hx Hypertension: No Hx Pacemaker: No Hx Asthma: No Hx COPD: No Hx Diabetes: No Hx Cancer: No Hx Gastrointestinal Problems: Yes - PUD, gastrectomy Hx Dialysis: No Hx Neurological Problems: No Hx Cerebrovascular Accident: No Hx Transient Ischemic Attacks: No Hx Dementia: No Hx Alzheimer's Disease: No Hx Parkinson's Disease: No Hx Meningitis: No Hx Encephalitis: No Hx Seizures: No Hx Epilepsy: No Hx Multiple Sclerosis: No Hx Cerebral Palsy: No Hx Amyotrophic Lat Sclerosis: No Hx Guillian-[place] Syndrome: No Hx Paralysis: No Hx Peripheral Neuropathy: No Hx Spinal Cord Injury: No Hx Head Trauma: No Hx Traumatic Brain Injury: No Hx Memory Loss: No Hx Concentration Difficulty: No Hx Speech Problem: No Hx Tremors: No Hx Vertigo: No Hx Dizziness: No Hx Syncope: No Hx Headaches: Yes - POST SUBDURAL HEMATOMA REMOVAL Hx Aphasia: No Hx Dysphasia: No Hx Numbness: No Hx Weakness: No Hx Fatigue: No Hx Neurologic Surgery: Yes - HAD SUBDURAL HEMATOMA REMOVED Hx Brain Shunt: No Physical Exam Vital Signs Date Time Temp Pulse Resp B/P (MAP) Pulse Ox O2 Delivery O2 Flow Rate FiO2 06/18/20 12:55 97.9 86 19 120/78 (92) 97 Room Air Medical Decision Making Diagnostic Impression: Primary Impression: GIB (gastrointestinal bleeding) Additional Impression: Abdominal pain ER Course Laboratory Tests Test 06/18/20 13:41 Urine Color Yellow Urine Appearance Clear Urine pH 6.5 (4.5-8.0) Urine Specific [place] 1.015 (1.005-1.035) Urine Protein 1+ (NEGATIVE) H Urine Glucose (UA) Negative (NEGATIVE) Urine Ketones Negative (NEGATIVE) Urine Blood Negative (NEGATIVE) Urine Nitrite Negative (NEGATIVE) Urine Bilirubin Negative (NEGATIVE) Urine Urobilinogen 1 MG/DL (0.0-1.0) H Urine Leukocyte Esterase 1+ (NEGATIVE) H Urine RBC 0 /HPF (0 - 2) Urine WBC 0-2 /HPF (0 - 2) Urine Squamous Epithelial Cells Few /LPF (NONE/OCC) Urine Bacteria Few /HPF (NONE) Urine Mucus Few /LPF (NONE/OCC) H 55-year-old female with history of peptic ulcer disease status post gastrectomy here with abdominal pain and hematemesis. Patient is hemodynamically stable in the emergency department but is uncomfortable secondary to her abdominal pain. Urinalysis negative. Currently waiting results of CBC, CMP, lipase. She will be given normal saline, Zofran, Carafate, IV Pepcid. She has an anaphylactic allergy to Protonix. Signed out to oncoming physician. Patient will likely be admitted for further management of her hematemesis and upper GI bleed. Last Vital Signs Date Time Temp Pulse Resp B/P (MAP) Pulse Ox O2 Delivery O2 Flow Rate FiO2 06/18/20 12:55 97.9 86 19 120/78 (92) 97 Room Air Refugio De Leon M.D. Jun 18, 2020 14:04
[2020-06-18 14:06] LABS: APPEARANCE,URINE CLEAR; BILIRUBIN, URINE NEGATIVE (NEGATIVE); GLUCOSE, URINE (UA) NEGATIVE (NEGATIVE); KETONES,URINE NEGATIVE (NEGATIVE); LEUKOCYTE ESTERASE ,URINE 1+ (NEGATIVE); NITRITE,URINE NEGATIVE (NEGATIVE); PH,URINE 6.5 (4.5-8.0); PROTEIN,URINE 1+ (NEGATIVE); UROBILINOGEN,URINE 1 MG/DL (0.0-1.0)
[2020-06-18] MEDS ORDERED: XANAX1 MG ORAL (14:10)
[2020-06-18] MEDS ORDERED: CARAFATE1 G1 ORAL (14:10)
[2020-06-18] MEDS ORDERED: ZOFRAN4 M3 ORAL (14:10)
[2020-06-18 14:11] LABS: COLOR,URINE YELLOW
[2020-06-18] MEDS: Sucralfate 1gm tab ORAL ONE ×2 (14:45→14:56)
[2020-06-18 14:50] LABS: BASOPHILS % (AUTO) 1.4 % (0.0-2.0); EOSINOPHILS % (AUTO) 1.7 % (0.0-3.0); HEMATOCRIT 36.6 % (37.0-47.0); HEMOGLOBIN 11.3 G/DL (12.0-16.0); LYMPHOCYTES % (AUTO) 21.2 % (20.0-45.0); MEAN CORPUSCULAR VOLUME 85 FL (80-99); MONOCYTES % (AUTO) 6.8 % (1.0-10.0); NEUTROPHILS % (AUTO) 68.9 % (45.0-75.0); PLATELET COUNT 184 K/UL (150-450); RED BLOOD COUNT 4.31 M/UL (4.20-5.40); RED CELL DISTRIBUTION WIDTH 25.1 % (11.6-14.8); WHITE BLOOD COUNT 5.5 K/UL (4.8-10.8)
[2020-06-18 15:01] LABS: ANION GAP 7 mmol/L (5-15); BLOOD UREA NITROGEN 6 mg/dL (7-18); CALCIUM 8.8 MG/DL (8.5-10.1); CARBON DIOXIDE 29 MMOL/L (21-32); CHLORIDE 106 MMOL/L (98-107); CREATININE 0.7 MG/DL (0.55-1.30); POTASSIUM 3.4 MMOL/L (3.5-5.1); SODIUM 142 MMOL/L (136-145)
[2020-06-18 15:06] LABS: ALANINE AMINOTRANSFERASE 28 U/L (12-78); ALBUMIN 3.9 G/DL (3.4-5.0); ALBUMIN/GLOBULIN RATIO 1.8 (1.0-2.7); ALKALINE PHOSPHATASE 65 U/L (46-116); ASPARTATE AMINO TRANSFERASE 32 U/L (15-37); BILIRUBIN,TOTAL 0.2 MG/DL (0.2-1.0)
--- NOTE | 2020-06-18 15:59 | Emergency Room Report ---
Physical Exam Vital Signs Date Time Temp Pulse Resp B/P (MAP) Pulse Ox O2 Delivery O2 Flow Rate FiO2 06/18/20 12:55 97.9 86 19 120/78 (92) 97 Room Air Medical Decision Making Diagnostic Impression: Primary Impression: GIB (gastrointestinal bleeding) Additional Impression: Abdominal pain ER Course Assumed care of the patient from the previous provider at approximately 1430. Please refer to initial note for full history and physical exam. Briefly, 55-year-old female presenting for evaluation of hematemesis this morning. Prior history of GI bleed status post clipping and partial antrectomy in the past. Last EGD was 2016 showing small hiatal hernia, gastric polyps and a surgical clip in the jejunum without active bleeding. Patient is anaphylactic to Protonix but was given IV Pepcid, Carafate, Zofran. Hemoglobin 11.3. Other labs within normal limits. Admitted to panel physician, Arjun ag Last Vital Signs Date Time Temp Pulse Resp B/P (MAP) Pulse Ox O2 Delivery O2 Flow Rate FiO2 06/18/20 12:55 97.9 86 19 120/78 (92) 97 Room Air Disposition: ADMITTED INPATIENT Condition: Serious Referrals: [facility],REFERRING (PCP) Procedures Critical Care Time Critical Care Time Total critical care time: Approximately 45 minutes Due to a high probability of clinically significant, life threatening deterioration, the patient required the highest level of preparedness to intervene emergently and I personally spent this critical care time directly and personally managing the patient. This critical care time included obtaining a history, examining the patient, pulse oximetry, ordering and reviewing studies, ordering treatments, evaluating response to treatment and updating management plan as needed, frequent reassessment and discussion with other providers as well as arranging for ultimate disposition. This critical to care time was performed to assess and manage the high probability of life-threatening deterioration that could result in multiorgan failure. This critical care time is separate from the separately billable procedures and treating other patients. Regan Foster MD Jun 18, 2020 15:59
[2020-06-18] MEDS ORDERED: Hydromorphone 0.5mg/0.5ml inj IVP ONE (16:15)
[2020-06-18 16:34] VITALS: BP 142/82
[2020-06-18] MEDS ORDERED: Pantoprazole Inj IV SCH (17:00)
[2020-06-18] MEDS ORDERED: Albuterol/Ipratropium 3ml neb HHN PRN (17:00)
[2020-06-18] MEDS ORDERED: Miralax 17gm pkt ORAL PRN (17:00)
--- NOTE | 2020-06-18 17:23 | Diagnostic Imaging Report ---
Indication: Chest pain Technique: One view of the chest Comparison: 08/13/2019 Findings: Lungs and pleural spaces are clear. Heart size is normal. No significant change Impression: No acute process
--- NOTE | 2020-06-18 17:37 | History and Physical ---
History of Present Illness General Reason for Hospitalization: Gastrointestinal Bleed Present Illness HPI Mrs. Neves is a 55F with PMH PUD, antrectomy, and anxiety who presents for hematemesis. Patient reports severe nausea and vomiting that started two days ago, however, today she had two episodes of coffee ground emesis. She notes "1 cup full and lots of blood clots." Denies pre-syncope, lightheadedness, chest pain, sob, abdominal pain, diarrhea, constipation or melena. She has been evaluated multiple times for UGIB. Last EGD 2016 which was neg for acute bleed. Denies NSAID use or alcohol use. Her previous PUD was due to Hpylori many years ago. She states her partial antrectomy was due to her PUD. She takes Carafate and Omeprazole at home. She also takes xanax for anxiety. No recent travels or illnesses. In the ED, patient hemodynamically stable. No respiratory compromise. Hgb stable at 11.3. She seems very anxious but otherwise no acute issues or complaints. PMH: PUD 2/2 h pylori, Anxiety Sx: Antrectomy, jejunal clips Fx: no GI, cardiopulmonary hx Soc: smokes 5 cigg per day, denies drinking or drug use Allergies: Coded Allergies: MEPERIDINE (Verified Allergy, Intermediate, Hives, 10/18/12) COPIED FROM UNCODED SECTION PANTOPRAZOLE (Verified Allergy, Intermediate, 03/08/17) MORPHINE (Verified Allergy, Unknown, ITCHING, 03/08/17) TRAMADOL (Verified Allergy, Unknown, 10/10/18) METOCLOPRAMIDE (Verified Adverse Reaction, Intermediate, "MY MUSCLE MUSCLE ARE FREEZING UP", 10/18/12) COPIED FROM UNCODED SECTION COVID-19 Screening Contact w/high risk pt: No Experienced COVID-19 symptoms?: No Medication History Scheduled Acetaminophen* (Tylenol Extra Strength*), 500 MG ORAL Q6H Alprazolam* (Xanax*), 0.25 MG ORAL BID, (Reported) Alprazolam* (Xanax*), Unknown Dose ORAL THREE TIMES A DAY, (Reported) Alprazolam* (Xanax*), 1 TAB ORAL THREE TIMES A DAY, (Reported) Esomeprazole Magnesium (Nexium), 20 MG ORAL DAILY, (Reported) Famotidine (Pepcid Ac), 20 MG PO DAILY Famotidine (Pepcid Ac), 20 MG PO DAILY, (Reported) Famotidine* (Pepcid 20mg tablet*), 20 MG ORAL TWICE A DAY Pantoprazole* (Protonix*), 40 MG PO DAILY, (Reported) Sucralfate* (Carafate*), 1 GM ORAL DAILY, (Reported) Sucralfate* (Carafate*), 1 GM ORAL Q6HR Sucralfate* (Carafate*), 1 GM ORAL BID, (Reported) Scheduled PRN Hydrocodone Bit/Acetaminophen 5-325* ([place] 5-325 Tablet*), 1 TAB ORAL Q6HR PRN for For Pain Hydrocodone Bit/Acetaminophen 5-325* ([place] 5-325*), 1 TAB ORAL Q6H PRN for For Pain Hydrocodone Bit/Acetaminophen 5-325* ([place] 5-325*), 1 TAB ORAL Q6H PRN for For Pain Hydrocodone Bit/Acetaminophen 5-325* ([place] 5-325*), 1 TAB ORAL Q6H PRN for For Pain Hydrocodone Bit/Acetaminophen 5-325* ([place] 5-325*), 1 TAB ORAL Q6H PRN for For Pain Hydrocodone/Acetaminophen 5-325* (Hydrocodone/Acetaminophen 5-325*), 1 TAB ORAL Q6H PRN for For Pain Ibuprofen (Motrin), 600 MG ORAL Q8H PRN for For Pain Ibuprofen (Motrin), 600 MG ORAL Q6H PRN for For Pain Ondansetron (Zofran), 4 MG SL Q6H PRN for Nausea & Vomiting Ondansetron Odt* (Zofran Odt*), 4 MG ORAL Q6H PRN for Nausea & Vomiting Ondansetron* (Zofran*), 4 MG ORAL Q6H PRN for Nausea & Vomiting Ondansetron* (Zofran*), 4 MG ORAL Q6H PRN for Nausea & Vomiting, (Reported) Promethazine HCl (Promethegan), 25 MG RECTAL Q8HR PRN for Nausea & Vomiting Patient History Healthcare decision maker N Resuscitation status Advanced Directive on File Review of Systems Constitutional: Denies: no symptoms, see HPI, chills, sweats, fever, malaise, weakness, other Eye: Denies: no symptoms, see HPI, eye pain, blurred vision, tearing, double vision, nose pain, nose congestion, acuity changes, discharge, other ENT: Denies: no symptoms, see HPI, ear pain, ear discharge, nose pain, nose congestion, throat pain, throat swelling, mouth pain, hearing loss, nasal discharge, other Respiratory: Denies: no symptoms, see HPI, cough, orthopnea, shortness of breath, stridor, wheezing, SCHMIDT, sputum, other Cardiovascular: Denies: no symptoms, see HPI, chest pain, edema, palpitations, syncope, PND, other Gastrointestinal: Reports: vomiting, hematemesis; Denies: no symptoms, see HPI, abdominal pain, constipation, diarrhea, nausea, melena, other Genitourinary: Denies: no symptoms, see HPI, discharge, dysuria, frequency, hematuria, pain, retention, incontinence, urgency, vag bleed/dc, other Musculoskeletal: Denies: no symptoms, see HPI, back pain, gout, joint pain, joint swelling, muscle pain, muscle stiffness, other Skin: Denies: no symptoms, see HPI, rash, change in color, change in hair/nails, dryness, lesions, other Psychiatric: Denies: no symptoms, see HPI, prior hx, anxiety, depressed feelings, emotional problems, SI, HI, hallucinations, other Neurological: Denies: no symptoms, see HPI, headache, numbness, paresthesia, seizure, tingling, tremors, focal weakness, syncope, dizziness, other Endocrine: Denies: no symptoms, see HPI, excessive sweating, flushing, intolerance to temperature, increased thirst, increased urine, unexplained weight loss, other Hematologic/Lymphatic: Denies: no symptoms, see HPI, anemia, blood clots, easy bleeding, easy bruising, swollen glands, diathesis, other Physical Exam General Appearance: no apparent distress, alert oriented x3 HEENT: normocephalic, atraumatic, PERRL Neck: non-tender, normal alignment Respiratory/Chest: lungs clear, normal breath sounds, no respiratory distress Cardiovascular/Chest: normal rate, regular rhythm, no JVD Abdomen: normal bowel sounds, non tender, soft Extremities: normal range of motion, non-tender Skin Exam: normal pigmentation, warm/dry Neurologic: retirement actuary II-XII grossly normal, oriented x 3 Musculoskeletal: normal muscle bulk, no effusion Last 24 Hour Vital Signs Date Time Temp Pulse Resp B/P (MAP) Pulse Ox O2 Delivery O2 Flow Rate FiO2 06/18/20 16:34 78 19 142/82 97 Room Air 06/18/20 13:00 86 19 Room Air 06/18/20 12:55 97.9 86 19 120/78 (92) 97 Room Air Laboratory Tests Test 06/18/20 13:41 06/18/20 14:35 06/18/20 15:10 Urine Color Yellow Urine Appearance Clear Urine pH 6.5 (4.5-8.0) Urine Specific [place] 1.015 (1.005-1.035) Urine Protein 1+ (NEGATIVE) H Urine Glucose (UA) Negative (NEGATIVE) Urine Ketones Negative (NEGATIVE) Urine Blood Negative (NEGATIVE) Urine Nitrite Negative (NEGATIVE) Urine Bilirubin Negative (NEGATIVE) Urine Urobilinogen 1 MG/DL (0.0-1.0) H Urine Leukocyte Esterase 1+ (NEGATIVE) H Urine RBC 0 /HPF (0 - 2) Urine WBC 0-2 /HPF (0 - 2) Urine Squamous Epithelial Cells Few /LPF (NONE/OCC) Urine Bacteria Few /HPF (NONE) Urine Mucus Few /LPF (NONE/OCC) H White Blood Count 5.5 K/UL (4.8-10.8) Red Blood Count 4.31 M/UL (4.20-5.40) Hemoglobin 11.3 G/DL (12.0-16.0) L Hematocrit 36.6 % (37.0-47.0) L Mean Corpuscular Volume 85 FL (80-99) Mean Corpuscular Hemoglobin 26.1 PG (27.0-31.0) L Mean Corpuscular Hemoglobin Concent 30.7 G/DL (32.0-36.0) L Red Cell Distribution Width 25.1 % (11.6-14.8) H Platelet Count 184 K/UL (150-450) Mean Platelet Volume 7.2 FL (6.5-10.1) Neutrophils (%) (Auto) 68.9 % (45.0-75.0) Lymphocytes (%) (Auto) 21.2 % (20.0-45.0) Monocytes (%) (Auto) 6.8 % (1.0-10.0) Eosinophils (%) (Auto) 1.7 % (0.0-3.0) Basophils (%) (Auto) 1.4 % (0.0-2.0) Sodium Level 142 MMOL/L (136-145) Potassium Level 3.4 MMOL/L (3.5-5.1) L Chloride Level 106 MMOL/L (98-107) Carbon Dioxide Level 29 MMOL/L (21-32) Anion Gap 7 mmol/L (5-15) Blood Urea Nitrogen 6 mg/dL (7-18) L Creatinine 0.7 MG/DL (0.55-1.30) Estimat Glomerular Filtration Rate > 60 mL/min (>60) Glucose Level 99 MG/DL (74-106) Calcium Level 8.8 MG/DL (8.5-10.1) Total Bilirubin 0.2 MG/DL (0.2-1.0) Aspartate Amino Transf (AST/SGOT) 32 U/L (15-37) Alanine Aminotransferase (ALT/SGPT) 28 U/L (12-78) Alkaline Phosphatase 65 U/L (46-116) Troponin I 0.000 ng/mL (0.000-0.056) Total Protein 6.1 G/DL (6.4-8.2) L Albumin 3.9 G/DL (3.4-5.0) Globulin 2.2 g/dL Albumin/Globulin Ratio 1.8 (1.0-2.7) Lipase 67 U/L (73-393) L Prothrombin Time 10.8 SEC (9.30-11.50) Prothromb Time International Ratio 1.0 (0.9-1.1) Activated Partial Thromboplast Time 25 SEC (23-33) Height (Feet): 5 Height (Inches): 9.00 Weight (Pounds): 100 Medications Current Medications Medications (Trade) Dose Ordered Sig/Ashish Route PRN Reason Start Time Stop Time Status Last Admin Dose Admin Acetaminophen (Tylenol) 650 mg Q4H PRN ORAL Mild Pain (Pain Scale 1-3) 06/18/20 17:00 07/18/20 16:59 Acetaminophen (Tylenol) 650 mg Q4H PRN ORAL Temp >100.5 06/18/20 17:00 07/18/20 16:59 Albuterol/ Ipratropium (Albuterol/ Ipratropium) 3 ml Q4H PRN HHN Shortness of Breath 06/18/20 17:00 06/23/20 16:59 Dextrose (Dextrose 50%) 25 ml Q30M PRN IV Hypoglycemia 06/18/20 17:00 09/16/20 16:59 Dextrose (Dextrose 50%) 50 ml Q30M PRN IV Hypoglycemia 06/18/20 17:00 09/16/20 16:59 Famotidine (Pepcid I.v.) 20 mg Q12HR IVP 06/18/20 21:00 07/18/20 20:59 Ondansetron HCl (Zofran) 4 mg Q6H PRN IVP Nausea & Vomiting 06/18/20 17:00 07/18/20 16:59 Polyethylene Glycol (Miralax) 17 gm HSPRN PRN ORAL Constipation 06/18/20 17:00 07/18/20 16:59 Sodium Chloride 1,000 ml @ 100 mls/hr Q10H IVLG 06/18/20 18:00 07/18/20 17:59 Assessment/Plan Diagnosis [place] I: Mrs. Neves is a 55F with PMH PUD, antrectomy, and anxiety who presents for hematemesis A: # ?Upper GIB 2/2 PUD, gastritis # Mild Acute blood loss anemia vs LELA # Hx of Anxiety # Hx of Peptic Ulcer Disease 2/2 H. Pylori # Hx of Antrectomy # Elevated BP P - hemodynamically stable - trend H&H q8h - f/u occult stool - apparently allergic to Protonix even though shes on omeprazole at home, so will continue IV Pepcid - continue home Carafate - transfuse if Hgb < 7 - IVF - NPO - consult Dr. Guerra, GI, recs appreciated CODE: Full GI: IV Pepcid DVT: SCDs Diet: NPO Fluids: D5 NS 100 Dispo: pending GI possible EGD, go home tomorrow if negative In addition to the usual care above I spent additional time reviewing records in the EMR and paper charts including physician documentation, nursing documentation, lab results, imaging and clinical documentation. Total time included was 31 min. Time spent on this encounter was 45 minutes which included 25 minutes of c ounseling and care coordination. I discussed with the nurse at bedside. Time of note may not reflect time patient was seen. Raymundo Bro D.O Jun 18, 2020 17:37
[2020-06-18] MEDS: D5NS 1,000 ML IV SCH (17:45)
[2020-06-18] MEDS: Sucralfate 1gm tab ORAL SCH ×2 (17:47→17:54)
[2020-06-18] MEDS ORDERED: HYDROcodone/Acetamin 5/325 tab ORAL PRN (19:00)
[2020-06-18] MEDS ORDERED: HYDROcodone/Acetamin 10/325 tab ORAL PRN (19:00)
[2020-06-18] MEDS: Hydromorphone 0.5mg/0.5ml inj IVP PRN (19:51)
[2020-06-18 20:00] VITALS: BP 130/74
[2020-06-19] VITALS: BP 135/86
[2020-06-19] MEDS: D5NS 1,000 ML IV SCH ×3 (01:50→22:33)
[2020-06-19] MEDS: Hydromorphone 0.5mg/0.5ml inj IVP PRN ×5 (01:51→23:29)
[2020-06-19 04:00] VITALS: BP 131/74
[2020-06-19 06:51] LABS: BASOPHILS % (AUTO) 1.6 % (0.0-2.0); EOSINOPHILS % (AUTO) 7.3 % (0.0-3.0); HEMATOCRIT 36.6 % (37.0-47.0); HEMOGLOBIN 11.3 G/DL (12.0-16.0); LYMPHOCYTES % (AUTO) 43.7 % (20.0-45.0); MEAN CORPUSCULAR VOLUME 84 FL (80-99); MONOCYTES % (AUTO) 5.7 % (1.0-10.0); NEUTROPHILS % (AUTO) 41.7 % (45.0-75.0); PLATELET COUNT 187 K/UL (150-450); RED BLOOD COUNT 4.36 M/UL (4.20-5.40); RED CELL DISTRIBUTION WIDTH 24.2 % (11.6-14.8); WHITE BLOOD COUNT 4.1 K/UL (4.8-10.8)
[2020-06-19 06:57] LABS: ANION GAP 7 mmol/L (5-15); BLOOD UREA NITROGEN 6 mg/dL (7-18); CALCIUM 8.2 MG/DL (8.5-10.1); CARBON DIOXIDE 29 MMOL/L (21-32); CHLORIDE 107 MMOL/L (98-107); CREATININE 0.7 MG/DL (0.55-1.30); POTASSIUM 2.8 MMOL/L (3.5-5.1); SODIUM 144 MMOL/L (136-145)
[2020-06-19 08:00] VITALS: BP 127/78
[2020-06-19] MEDS: Sucralfate 1gm tab ORAL SCH ×2 (08:09→18:00)
[2020-06-19] MEDS ORDERED: Metoclopramide 10mg/2ml Inj IVP PRN (09:15)
--- NOTE | 2020-06-19 09:39 | General Progress Note ---
Subjective ROS Limited/Unobtainable: Yes Allergies: Coded Allergies: MEPERIDINE (Verified Allergy, Intermediate, Hives, 10/18/12) COPIED FROM UNCODED SECTION PANTOPRAZOLE (Verified Allergy, Intermediate, 03/08/17) MORPHINE (Verified Allergy, Unknown, ITCHING, 03/08/17) TRAMADOL (Verified Allergy, Unknown, 10/10/18) METOCLOPRAMIDE (Verified Adverse Reaction, Intermediate, "MY MUSCLE MUSCLE ARE FREEZING UP", 10/18/12) COPIED FROM UNCODED SECTION Objective Last 24 Hour Vital Signs Date Time Temp Pulse Resp B/P (MAP) Pulse Ox O2 Delivery O2 Flow Rate FiO2 06/19/20 07:25 70 18 98 Room Air 21 06/19/20 04:00 97.9 70 18 131/74 (93) 98 06/19/20 00:00 97.7 63 20 135/86 (102) 98 06/18/20 21:00 Room Air 06/18/20 20:00 98.2 61 20 130/74 (92) 97 06/18/20 19:32 80 18 97 Room Air 21 06/18/20 17:55 Room Air 06/18/20 17:20 78 19 138/80 97 Room Air 06/18/20 16:34 78 19 142/82 97 Room Air 06/18/20 13:00 86 19 Room Air 06/18/20 12:55 97.9 86 19 120/78 (92) 97 Room Air Intake and Output 06/18/20 06/19/20 19:00 07:00 Intake Total 100 ml 1000 ml Balance 100 ml 1000 ml Intake Oral 0 ml IV Total 100 ml 1000 ml # Voids 2 3 # Bowel Movements 1 1 Laboratory Tests 06/18/20 13:41: Urine Color Yellow, Urine Appearance Clear, Urine pH 6.5, Urine Specific [place] 1.015, Urine Protein 1+H, Urine Glucose (UA) Negative, Urine Ketones Negative, Urine Blood Negative, Urine Nitrite Negative, Urine Bilirubin Negative, Urine Urobilinogen 1H, Urine Leukocyte Esterase 1+H, Urine RBC 0, Urine WBC 0-2, Urine Squamous Epithelial Cells Few, Urine Bacteria Few, Urine Mucus FewH 06/18/20 14:35: White Blood Count 5.5, Red Blood Count 4.31, Hemoglobin 11.3L, Hematocrit 36.6L, Mean Corpuscular Volume 85, Mean Corpuscular Hemoglobin 26.1L, Mean Corpuscular Hemoglobin Concent 30.7L, Red Cell Distribution Width 25.1H, Platelet Count 184, Mean Platelet Volume 7.2, Neutrophils (%) (Auto) 68.9, Lymphocytes (%) (Auto) 21.2, Monocytes (%) (Auto) 6.8, Eosinophils (%) (Auto) 1.7, Basophils (%) (Auto) 1.4, Sodium Level 142, Potassium Level 3.4L, Chloride Level 106, Carbon Dioxide Level 29, Anion Gap 7, Blood Urea Nitrogen 6L, Creatinine 0.7, Estimat Glomerular Filtration Rate > 60, Glucose Level 99, Calcium Level 8.8, Total Bilirubin 0.2, Aspartate Amino Transf (AST/SGOT) 32, Alanine Aminotransferase (ALT/SGPT) 28, Alkaline Phosphatase 65, Troponin I 0.000, Total Protein 6.1L, Albumin 3.9, Globulin 2.2, Albumin/Globulin Ratio 1.8, Lipase 67L 06/18/20 15:10: Prothrombin Time 10.8, Prothromb Time International Ratio 1.0, Activated Partial Thromboplast Time 25 06/19/20 05:40: White Blood Count 4.1L, Red Blood Count 4.36, Hemoglobin 11.3L, Hematocrit 36.6L , Mean Corpuscular Volume 84, Mean Corpuscular Hemoglobin 25.9L, Mean Corpuscular Hemoglobin Concent 30.9L, Red Cell Distribution Width 24.2H, Platelet Count 187, Mean Platelet Volume 7.2, Neutrophils (%) (Auto) 41.7L, Lymphocytes (%) (Auto) 43.7, Monocytes (%) (Auto) 5.7, Eosinophils (%) (Auto) 7.3H, Basophils (%) (Auto) 1.6, Sodium Level 144, Potassium Level 2.8L, Chloride Level 107, Carbon Dioxide Level 29, Anion Gap 7, Blood Urea Nitrogen 6L, Creatinine 0.7, Estimat Glomerular Filtration Rate > 60, Glucose Level 136H, Calcium Level 8.2L, Plasma Hemoglobin [Pending], Magnesium Level 1.9 Height (Feet): 5 Height (Inches): 9.00 Weight (Pounds): 100 General Appearance: alert EENT: normal ENT inspection Neck: supple Cardiovascular: tachycardia Respiratory/Chest: decreased breath sounds Abdomen: hypoactive bowel sounds, tender Extremities: non-tender Assessment/Plan Assessment/Plan: hematemesis h/o antrectomy EGD was canceled today by anesthesia due to low K carafate fu H&H [place] and [place] pepcis drug screen replace K EGD in am Sacha Guerra MD Jun 19, 2020 09:39
[2020-06-19] MEDS ORDERED: Hydromorphone 0.5mg/0.5ml inj IVP SCH (10:30)
--- NOTE | 2020-06-19 11:24 | General Progress Note ---
Subjective Date patient seen: Jun 19, 2020 ROS Limited/Unobtainable: No Constitutional: Denies: no symptoms, chills, diaphoresis, fever, malaise, weakness, other HEENT: Denies: no symptoms, eye pain, blurred vision, tearing, double vision, ear pain, ear discharge, nose pain, nose congestion, throat pain, throat swelling, mouth pain, mouth swelling, other Cardiovascular: Denies: no symptoms, chest pain, edema, irregular heart rate, lightheadedness, palpitations, syncope, other Respiratory: Denies: no symptoms, cough, orthopnea, shortness of breath, SOB with excertion, SOB at rest, sputum, stridor, wheezing, other Gastrointestinal/Abdominal: Reports: no symptoms, abdomen distended, abdominal pain, black stools, tarry stools, blood in stool, constipated, diarrhea, difficulty swallowing, nausea, poor appetite, poor fluid intake, rectal bleeding , vomiting, other Genitourinary: Denies: no symptoms, burning, discharge, frequency, flank pain, hematuria, incontinence, pain, urgency, other Neurologic/Psychiatric: Denies: no symptoms, anxiety, depressed, emotional problems, headache, numbness, paresthesia, pre-existing deficit, seizure, tingling, tremors, weakness, other Endocrine: Denies: no symptoms, excessive sweating, flushing, intolerance to cold, intolerance to heat, increased hunger, increased thirst, increased urine, unexplained weight gain, unexplained weight loss, other Hematologic/Lymphatic: Denies: no symptoms, anemia, easy bleeding, easy bruising, other Allergies: Coded Allergies: MEPERIDINE (Verified Allergy, Intermediate, Hives, 10/18/12) COPIED FROM UNCODED SECTION PANTOPRAZOLE (Verified Allergy, Intermediate, 03/08/17) MORPHINE (Verified Allergy, Unknown, ITCHING, 03/08/17) TRAMADOL (Verified Allergy, Unknown, 10/10/18) METOCLOPRAMIDE (Verified Adverse Reaction, Intermediate, "MY MUSCLE MUSCLE ARE FREEZING UP", 10/18/12) COPIED FROM UNCODED SECTION Subjective nauseous and reports throwing up some blood early this morning. epigastric pain not controlled on current pain regimen. denies any othe symptoms at this time Objective Last 24 Hour Vital Signs Date Time Temp Pulse Resp B/P (MAP) Pulse Ox O2 Delivery O2 Flow Rate FiO2 06/19/20 09:00 Room Air 06/19/20 08:00 97.5 66 18 127/78 (94) 99 06/19/20 07:25 70 18 98 Room Air 21 06/19/20 04:00 97.9 70 18 131/74 (93) 98 06/19/20 00:00 97.7 63 20 135/86 (102) 98 06/18/20 21:00 Room Air 06/18/20 20:00 98.2 61 20 130/74 (92) 97 06/18/20 19:32 80 18 97 Room Air 21 06/18/20 17:55 Room Air 06/18/20 17:20 78 19 138/80 97 Room Air 06/18/20 16:34 78 19 142/82 97 Room Air 06/18/20 13:00 86 19 Room Air 06/18/20 12:55 97.9 86 19 120/78 (92) 97 Room Air Intake and Output 06/18/20 06/19/20 19:00 07:00 Intake Total 100 ml 1000 ml Balance 100 ml 1000 ml Intake Oral 0 ml IV Total 100 ml 1000 ml # Voids 2 3 # Bowel Movements 1 1 Laboratory Tests 06/18/20 13:41: Urine Color Yellow, Urine Appearance Clear, Urine pH 6.5, Urine Specific [place] 1.015, Urine Protein 1+H, Urine Glucose (UA) Negative, Urine Ketones Negative, Urine Blood Negative, Urine Nitrite Negative, Urine Bilirubin Negative, Urine Urobilinogen 1H, Urine Leukocyte Esterase 1+H, Urine RBC 0, Urine WBC 0-2, Urine Squamous Epithelial Cells Few, Urine Bacteria Few, Urine Mucus FewH 06/18/20 14:35: White Blood Count 5.5, Red Blood Count 4.31, Hemoglobin 11.3L, Hematocrit 36.6L, Mean Corpuscular Volume 85, Mean Corpuscular Hemoglobin 26.1L, Mean Corpuscular Hemoglobin Concent 30.7L, Red Cell Distribution Width 25.1H, Platelet Count 184, Mean Platelet Volume 7.2, Neutrophils (%) (Auto) 68.9, Lymphocytes (%) (Auto) 21.2, Monocytes (%) (Auto) 6.8, Eosinophils (%) (Auto) 1.7, Basophils (%) (Auto) 1.4, Sodium Level 142, Potassium Level 3.4L, Chloride Level 106, Carbon Dioxide Level 29, Anion Gap 7, Blood Urea Nitrogen 6L, Creatinine 0.7, Estimat Glome rular Filtration Rate > 60, Glucose Level 99, Calcium Level 8.8, Total Bilirubin 0.2, Aspartate Amino Transf (AST/SGOT) 32, Alanine Aminotransferase (ALT/SGPT) 28, Alkaline Phosphatase 65, Troponin I 0.000, Total Protein 6.1L, Albumin 3.9, Globulin 2.2, Albumin/Globulin Ratio 1.8, Lipase 67L 06/18/20 15:10: Prothrombin Time 10.8, Prothromb Time International Ratio 1.0, Activated Partial Thromboplast Time 25 06/19/20 05:40: White Blood Count 4.1L, Red Blood Count 4.36, Hemoglobin 11.3L, Hematocrit 36.6L , Mean Corpuscular Volume 84, Mean Corpuscular Hemoglobin 25.9L, Mean Corpuscular Hemoglobin Concent 30.9L, Red Cell Distribution Width 24.2H, Platelet Count 187, Mean Platelet Volume 7.2, Neutrophils (%) (Auto) 41.7L, Lymphocytes (%) (Auto) 43.7, Monocytes (%) (Auto) 5.7, Eosinophils (%) (Auto) 7.3H, Basophils (%) (Auto) 1.6, Sodium Level 144, Potassium Level 2.8L, Chloride Level 107, Carbon Dioxide Level 29, Anion Gap 7, Blood Urea Nitrogen 6L, Creatinine 0.7, Estimat Glomerular Filtration Rate > 60, Glucose Level 136H, Calcium Level 8.2L, Plasma Hemoglobin [Pending], Magnesium Level 1.9 Height (Feet): 5 Height (Inches): 9.00 Weight (Pounds): 100 General Appearance: alert, mild distress EENT: PERRL/EOMI Neck: supple Cardiovascular: normal rate, regular rhythm Respiratory/Chest: lungs clear, normal breath sounds Abdomen: soft, tender - mild epigastric tenderness Edema: non-pitting Neurologic: alert, oriented x 3, normal mood/affect Assessment/Plan Problem List: (1) GIB (gastrointestinal bleeding) ICD Codes: K92.2 - GIB (gastrointestinal bleeding) SNOMED: 77959274 (2) Gastrointestinal hemorrhage ICD Codes: K92.2 - Gastrointestinal hemorrhage, unspecified SNOMED: 04902588 (3) Abdominal pain ICD Codes: R10.9 - Unspecified abdominal pain SNOMED: 33989749 (4) GIB (gastrointestinal bleeding) ICD Codes: K92.2 - Gastrointestinal hemorrhage, unspecified SNOMED: 72648265 Status: stable Assessment/Plan: Mrs. Neves is a 55F with PMH PUD, antrectomy, and anxiety who presents for hematemesis A: # ?Upper GIB 2/2 PUD, gastritis # Mild Acute blood loss anemia vs LELA # Hx of Anxiety # Hx of Peptic Ulcer Disease 2/2 H. Pylori # Hx of Antrectomy # Elevated BP # Hypokalemia P - hemodynamically stable - Hgb stable at ~11, trend CBC - f/u occult stool - apparently allergic to Protonix even though shes on omeprazole at home, so will continue IV Pepcid - continue home Carafate - transfuse if Hgb < 7 - IVF - NPO after MN. Diet today. EGD cancelled today due to severe hypokalemia -Zofran not helping fully. added compazine in addition. -replete K, repeat BMP in AM. - consult Dr. Guerra, GI, recs appreciated CODE: Full GI: IV Pepcid DVT: SCDs Diet: soft diet Fluids: D5 NS 100 Dispo: pending GI possible EGD, go home tomorrow if negative In addition to the usual care above I spent additional time reviewing records in the EMR and paper charts including physician documentation, nursing documentation, lab results, imaging and clinical documentation. Total time inc luded was 32 min. Time of note may not reflect time patient was seen. Arturo Rangel MD Jun 19, 2020 11:24
[2020-06-19 12:00] VITALS: BP 137/75
[2020-06-19 16:00] VITALS: BP 105/73
--- NOTE | 2020-06-19 16:17 | Diagnostic Imaging Report ---
Indication: Abdominal pain Technique: Supine view of the abdomen Comparison: none Findings: , Gas pattern is unremarkable. Surgical clips are seen in the epigastric region. There is mild to moderate retained stool. Bones are unremarkable. No masses or unusual calcifications Impression: No acute process
[2020-06-19] MEDS ORDERED: D5NS 1000ml IV ONE (17:34)
[2020-06-19] MEDS ORDERED: Tubing IV Secondary IV ONE (17:34)
[2020-06-19 20:00] VITALS: BP 111/70
[2020-06-20] VITALS (10 sets, daily range): BP systolic 107–149; BP diastolic 63–84
[2020-06-20] MEDS: Hydromorphone 0.5mg/0.5ml inj IVP PRN ×5 (03:29→20:52)
[2020-06-20 06:35] LABS: BASOPHILS % (AUTO) 1.2 % (0.0-2.0); EOSINOPHILS % (AUTO) 4.4 % (0.0-3.0); HEMATOCRIT 35.6 % (37.0-47.0); HEMOGLOBIN 10.9 G/DL (12.0-16.0); LYMPHOCYTES % (AUTO) 31.8 % (20.0-45.0); MEAN CORPUSCULAR VOLUME 85 FL (80-99); MONOCYTES % (AUTO) 5.7 % (1.0-10.0); NEUTROPHILS % (AUTO) 56.9 % (45.0-75.0); PLATELET COUNT 190 K/UL (150-450); RED BLOOD COUNT 4.21 M/UL (4.20-5.40); WHITE BLOOD COUNT 4.8 K/UL (4.8-10.8)
[2020-06-20 06:59] LABS: ANION GAP 5 mmol/L (5-15); BLOOD UREA NITROGEN 5 mg/dL (7-18); CALCIUM 8.4 MG/DL (8.5-10.1); CARBON DIOXIDE 29 MMOL/L (21-32); CHLORIDE 108 MMOL/L (98-107); CREATININE 0.7 MG/DL (0.55-1.30); POTASSIUM 3.9 MMOL/L (3.5-5.1); SODIUM 142 MMOL/L (136-145)
[2020-06-20 07:03] LABS: ALANINE AMINOTRANSFERASE 22 U/L (12-78); ALBUMIN 3.5 G/DL (3.4-5.0); ALBUMIN/GLOBULIN RATIO 1.7 (1.0-2.7); ALKALINE PHOSPHATASE 60 U/L (46-116); ASPARTATE AMINO TRANSFERASE 15 U/L (15-37); BILIRUBIN,TOTAL 0.2 MG/DL (0.2-1.0)
[2020-06-20] MEDS: Sucralfate 1gm tab ORAL SCH ×3 (08:50→17:19)
--- NOTE | 2020-06-20 09:01 | Pre-Procedure Note/Attestation ---
Pre-Procedure Note/Attestation Complete Prior to Procedure Planned Procedure: not applicable Procedure Narrative: EGD Indications for Procedure Pre-Operative Diagnosis: gib Attestation I attest that I discussed the nature of the procedure; its benefits; risks and complications; and alternatives (and the risks and benefits of such alternatives), prior to the procedure, with the patient (or the patient's legal inbound call center representative). I attest that, if there was a reasonable possibility of needing a blood transfusion, the patient (or the patient's legal inbound call center representative) was given the [facility] standardized written summary, pursuant to the Karthik Memo Blood Safety Act ([place] [facility] and Safety Code # 1645, as amended). I attest that I re-evaluated the patient just prior to the surgery and that there has been no change in the patient's H&P, except as documented below: Sacha Guerra MD Jun 20, 2020 09:01
[2020-06-20] MEDS: D5NS 1,000 ML IV SCH (09:45)
[2020-06-20] MEDS ORDERED: NS 500ML IVPB ONE (11:20)
[2020-06-20] MEDS ORDERED: Lidocaine 1% MPF 10mg/ml 5ml ONE (11:30)
--- NOTE | 2020-06-20 11:38 | Endoscopy Procedure Note ---
Endoscopy Procedure Note General Indication for Procedure: gib Procedures Performed: EGD Operative Findings/Diagnosis: esophagitis Specimen: yes Pt Tolerated Procedure Well: Yes Estimated Blood Loss: none Anesthesia Anesthesiologist: silvia Anesthesia: MAC Inserted Devices Implant(s) used?: No GI Core Measures 50 yrs or older w/o bx or poly: Not Applicable 10yrs. F/U recommended: Not Applicable Sacha Guerra MD Jun 20, 2020 11:38
--- NOTE | 2020-06-20 11:42 | Anethesia Preoperative Eval ---
Anesthesia Pre-op PMH/ROS General Date of Evaluation: Jun 20, 2020 Time of Evaluation: 11:24 Anesthesiologist: aretha ASA Score: ASA 2 Mallampati Score Class I : Soft palate, uvula, fauces, pillars visible Class II: Soft palate, uvula, fauces visible Class III: Soft palate, base of uvula visible Class IV: Only hard plate visible Mallampati Classification: Class II Surgeon: stella Diagnosis: GERD Surgical Procedure: EGD Social History: smoking, current smoker Family History: no anesthesia problems Allergies: Coded Allergies: MEPERIDINE (Verified Allergy, Intermediate, Hives, 10/18/12) COPIED FROM UNCODED SECTION PANTOPRAZOLE (Verified Allergy, Intermediate, 03/08/17) MORPHINE (Verified Allergy, Unknown, ITCHING, 03/08/17) TRAMADOL (Verified Allergy, Unknown, 10/10/18) METOCLOPRAMIDE (Verified Adverse Reaction, Intermediate, "MY MUSCLE MUSCLE ARE FREEZING UP", 10/18/12) COPIED FROM UNCODED SECTION Medications: see eMAR Patient NPO?: Yes NPO Date: Jun 20, 2020 NPO Time: 00:01 Past Medical History Cardiovascular: Denies: HTN, CAD, CA, valve dz, arrhythmia, other Pulmonary: Denies: asthma, COPD, GEO, other Gastrointestinal/Genitourinary: Reports: GERD; Denies: CRI, ESRD, other Neurologic/Psychiatric: Reports: depression/anxiety; Denies: dementia, CVA, TIA, other Endocrine: Denies: DM, hypothyroidism, steroids, other PSxH Narrative: antrectomy Anesthesia Pre-op Phys. Exam Physician Exam Last Vital Signs Date Time Temp Pulse Resp B/P (MAP) Pulse Ox O2 Delivery O2 Flow Rate FiO2 06/20/20 09:00 Room Air 06/20/20 03:56 97.5 70 18 149/84 (105) 97 06/19/20 20:03 21 Constitutional: NAD Neurologic: CN 2-12 intact Cardiovascular: RRR Respiratory: CTA Gastrointestinal: S/NT/ND Airway Exam Mallampati Classification 2 Mallampati Score: Class II MO: full ROM: full Dentures: no upper, no lower Anesthesia Pre-op A/P Labs Hematology Test 06/20/20 06:15 White Blood Count 4.8 K/UL (4.8-10.8) Red Blood Count 4.21 M/UL (4.20-5.40) Hemoglobin 10.9 G/DL (12.0-16.0) L Hematocrit 35.6 % (37.0-47.0) L Mean Corpuscular Volume 85 FL (80-99) Mean Corpuscular Hemoglobin 25.9 PG (27.0-31.0) L Mean Corpuscular Hemoglobin Concent 30.7 G/DL (32.0-36.0) L Red Cell Distribution Width 24.0 % (11.6-14.8) H Platelet Count 190 K/UL (150-450) Mean Platelet Volume 7.2 FL (6.5-10.1) Neutrophils (%) (Auto) 56.9 % (45.0-75.0) Lymphocytes (%) (Auto) 31.8 % (20.0-45.0) Monocytes (%) (Auto) 5.7 % (1.0-10.0) Eosinophils (%) (Auto) 4.4 % (0.0-3.0) H Basophils (%) (Auto) 1.2 % (0.0-2.0) Chemistry Test 06/20/20 06:15 Sodium Level 142 MMOL/L (136-145) Potassium Level 3.9 MMOL/L (3.5-5.1) Chloride Level 108 MMOL/L (98-107) H Carbon Dioxide Level 29 MMOL/L (21-32) Anion Gap 5 mmol/L (5-15) Blood Urea Nitrogen 5 mg/dL (7-18) L Creatinine 0.7 MG/DL (0.55-1.30) Estimat Glomerular Filtration Rate > 60 mL/min (>60) Glucose Level 94 MG/DL (74-106) Calcium Level 8.4 MG/DL (8.5-10.1) L Total Bilirubin 0.2 MG/DL (0.2-1.0) Aspartate Amino Transf (AST/SGOT) 15 U/L (15-37) Alanine Aminotransferase (ALT/SGPT) 22 U/L (12-78) Alkaline Phosphatase 60 U/L (46-116) Total Protein 5.6 G/DL (6.4-8.2) L Albumin 3.5 G/DL (3.4-5.0) Globulin 2.1 g/dL Albumin/Globulin Ratio 1.7 (1.0-2.7) Studies Pre-op Studies: EKG - SR Risk Assessment & Plan Assessment: covid neg; denies cp Plan: mac Status Change Before Surgery: No Pre-Antibiotics Drug: none Susy Young CRNA Jun 20, 2020 11:42
--- NOTE | 2020-06-20 11:43 | Immediate Post-Op Evaluation ---
Immediate Post-Op Evalulation Immediate Post-Op Evalulation Procedure: EGD Date of Evaluation: Jun 20, 2020 Time of Evaluation: 11:42 IV Fluids: 200 Blood Pressure Systolic: 107 Blood Pressure Diastolic: 70 Pulse Rate: 69 Respiratory Rate: 14 O2 Sat by Pulse Oximetry: 99 Temperature (Fahrenheit): 97.4 Nausea: No Vomiting: No Patient Status: awake, reacts, patent Hydration Status: adequate Drug: none Susy Young CRNA Jun 20, 2020 11:43
--- NOTE | 2020-06-20 12:31 | 48 Hour Post Anesthesia Eval ---
Post Anesthesia Evaluation Procedure: EGD Date of Evaluation: Jun 20, 2020 Time of Evaluation: 12:31 Blood Pressure Systolic: 147 0: 70 Pulse Rate: 70 Respiratory Rate: 14 O2 Sat by Pulse Oximetry: 98 Airway: patent Nausea: No Vomiting: No Hydration Status: adequate Cardiopulmonary Status: stable Mental Status/LOC: patient returned to baseline Post-Anesthesia Complications: none Follow-up care needed: N/A Susy Young CRNA Jun 20, 2020 12:31
--- NOTE | 2020-06-20 13:30 | Procedure Note ---
DATE OF PROCEDURE: 06/20/2020 SURGEON: Sacha Guerra MD. PROCEDURE: Upper endoscopy with biopsy. ANESTHESIA: Per AUDITING CONTROL CLERK, Susy Young. INSTRUMENT: Olympus adult flexible endoscope. INDICATION: Upper GI bleeding. REASON FOR PROCEDURE: The procedure, risks, benefits, and possible consequences, including hemorrhage, aspiration, perforation and infection, and alternative treatments, were explained to the patient/legal guardian by Dr. Sacha Guerra and the patient/legal guardian understood and accepted these risks. DESCRIPTION OF PROCEDURE: After informed consent was obtained and the patient was adequately sedated, Olympus upper endoscope was advanced from mouth into the esophagus. The patient had severe distal esophagitis, erosive, most probably the source of bleeding. GE junction was at about 36 centimeters from the incisors. As soon as we passed the Z-line, we actually entered the small intestine. The patient had total gastrectomy. Both afferent and efferent loop of the small bowel was intubated. At this time, we pulled the scope back into the esophagus. Biopsy from the distal esophagus was obtained and the procedure was terminated. SUMMARY OF FINDINGS: 1. Severe erosive esophagitis. 2. Total gastrectomy with Vicky-en-Y surgery. RECOMMENDATION: 1. Elevate the head of the bed at all times. 2. Start diet, GI soft. 3. Add Carafate. 4. Discontinue PPI given the patient has gastric mucosa to make any acid. 5. Discharge planning per primary team. Sacha Guerra M.D. DR: Vika JOB#: [id number] CC:
--- NOTE | 2020-06-20 13:55 | General Progress Note ---
Subjective Date patient seen: Jun 20, 2020 ROS Limited/Unobtainable: No Constitutional: Denies: no symptoms, chills, diaphoresis, fever, malaise, weakness, other HEENT: Denies: no symptoms, eye pain, blurred vision, tearing, double vision, ear pain, ear discharge, nose pain, nose congestion, throat pain, throat swelling, mouth pain, mouth swelling, other Cardiovascular: Denies: no symptoms, chest pain, edema, irregular heart rate, lightheadedness, palpitations, syncope, other Respiratory: Denies: no symptoms, cough, orthopnea, shortness of breath, SOB with excertion, SOB at rest, sputum, stridor, wheezing, other Gastrointestinal/Abdominal: Reports: no symptoms, abdomen distended, abdominal pain, black stools, tarry stools, blood in stool, constipated, diarrhea, difficulty swallowing, nausea, poor appetite, poor fluid intake, rectal bleeding , vomiting, other Genitourinary: Denies: no symptoms, burning, discharge, frequency, flank pain, hematuria, incontinence, pain, urgency, other Neurologic/Psychiatric: Denies: no symptoms, anxiety, depressed, emotional problems, headache, numbness, paresthesia, pre-existing deficit, seizure, tingling, tremors, weakness, other Endocrine: Denies: no symptoms, excessive sweating, flushing, intolerance to cold, intolerance to heat, increased hunger, increased thirst, increased urine, unexplained weight gain, unexplained weight loss, other Hematologic/Lymphatic: Denies: no symptoms, anemia, easy bleeding, easy bruising, other Allergies: Coded Allergies: MEPERIDINE (Verified Allergy, Intermediate, Hives, 10/18/12) COPIED FROM UNCODED SECTION PANTOPRAZOLE (Verified Allergy, Intermediate, 03/08/17) MORPHINE (Verified Allergy, Unknown, ITCHING, 03/08/17) TRAMADOL (Verified Allergy, Unknown, 10/10/18) METOCLOPRAMIDE (Verified Adverse Reaction, Intermediate, "MY MUSCLE MUSCLE ARE FREEZING UP", 10/18/12) COPIED FROM UNCODED SECTION Subjective still feeling mildly nauseous, was able to tolerate pureed diet yesterday. had small amount of hematemesis this AM. Objective Last 24 Hour Vital Signs Date Time Temp Pulse Resp B/P (MAP) Pulse Ox O2 Delivery O2 Flow Rate FiO2 06/20/20 12:31 70 14 98 06/20/20 12:00 96.3 72 18 146/83 (104) 100 06/20/20 11:45 64 18 125/66 99 Room Air 06/20/20 11:43 69 14 99 06/20/20 11:40 65 16 124/75 98 Room Air 06/20/20 11:38 97.4 68 16 107/70 100 Nasal Cannula 3 06/20/20 09:00 Room Air 06/20/20 08:00 97.1 71 18 145/84 (104) 99 06/20/20 03:56 97.5 70 18 149/84 (105) 97 06/20/20 00:00 98.0 73 16 118/63 (81) 98 06/19/20 21:00 Room Air 06/19/20 20:03 75 18 97 Room Air 21 06/19/20 20:00 97.7 75 20 111/70 (84) 96 06/19/20 16:00 97.8 62 20 105/73 (84) 97 Intake and Output 06/19/20 06/20/20 19:00 07:00 Intake Total 1100 ml 1100 ml Balance 1100 ml 1100 ml Intake Oral 600 ml IV Total 500 ml 1100 ml # Voids 3 2 Laboratory Tests 06/19/20 17:55: Urine Opiates Screen Negative, Urine Barbiturates Screen Negative, Phencyclidine (PCP) Screen Negative, Urine Amphetamines Screen Negative, Urine Benzodiazepines Screen Negative, Urine Cocaine Screen Negative, Urine Marijuana (THC) Screen Negative 06/20/20 06:15: White Blood Count 4.8, Red Blood Count 4.21, Hemoglobin 10.9L, Hematocrit 35.6L, Mean Corpuscular Volume 85, Mean Corpuscular Hemoglobin 25.9L, Mean Corpuscular Hemoglobin Concent 30.7L, Red Cell Distribution Width 24.0H, Platelet Count 190, Mean Platelet Volume 7.2, Neutrophils (%) (Auto) 56.9, Lymphocytes (%) (Auto) 31.8, Monocytes (%) (Auto) 5.7, Eosinophils (%) (Auto) 4.4H, Basophils (%) (Auto) 1.2, Sodium Level 142, Potassium Level 3.9, Chloride Level 108H, Carbon Dioxide Level 29, Anion Gap 5, Blood Urea Nitrogen 5L, Creatinine 0.7, Estimat Glomerular Filtration Rate > 60, Glucose Level 94, Calcium Level 8.4L, Total Bilirubin 0.2, Aspartate Amino Transf (AST/SGOT) 15, Alanine Aminotransferase (ALT/SGPT) 22, Alkaline Phosphatase 60, Total Protein 5.6L, Albumin 3.5, Globulin 2.1, Albumin/Globulin Ratio 1.7 Height (Feet): 5 Height (Inches): 9.00 Weight (Pounds): 119 General Appearance: no apparent distress, alert EENT: PERRL/EOMI Neck: supple Cardiovascular: normal rate, regular rhythm Respiratory/Chest: lungs clear, normal breath sounds Abdomen: non tender, soft Edema: non-pitting Neurologic: alert, oriented x 3 Assessment/Plan Problem List: (1) GIB (gastrointestinal bleeding) ICD Codes: K92.2 - GIB (gastrointestinal bleeding) SNOMED: 09201211 (2) Gastrointestinal hemorrhage ICD Codes: K92.2 - Gastrointestinal hemorrhage, unspecified SNOMED: 46177829 (3) Abdominal pain ICD Codes: R10.9 - Unspecified abdominal pain SNOMED: 41434974 (4) GIB (gastrointestinal bleeding) ICD Codes: K92.2 - Gastrointestinal hemorrhage, unspecified SNOMED: 65814378 Status: stable Assessment/Plan: Mrs. Neves is a 55F with PMH PUD, antrectomy, and anxiety who presents for hematemesis A: # ?Upper GIB 2/2 PUD, gastritis # Mild Acute blood loss anemia vs LELA # Hx of Anxiety # Hx of Peptic Ulcer Disease 2/2 H. Pylori # Hx of Antrectomy # Elevated BP # Hypokalemia P - Hgb stable at ~11, trend CBC - apparently allergic to Protonix even though shes on omeprazole at home, so will continue IV Pepcid - continue home Carafate -s/p EGD with severe esophagitis seen. d/w GI, cleared for d/c. continue carafate. will monitor overnight. - transfuse if Hgb < 7 -Zofran not helping fully. added compazine in addition. -replete K, repeat BMP in AM. - consult Dr. Guerra, GI, recs appreciated CODE: Full GI: IV Pepcid DVT: SCDs Diet: soft diet Fluids: D5 NS 100 Dispo: d/c home tmrw. Spent 36 mins on patient encounter, 25 on counseling, coordination of care. d/w RN, consultants. Time of note may not reflect time patient was seen. Arturo Rangel MD Jun 20, 2020 13:55
[2020-06-21] MEDS: Hydromorphone 0.5mg/0.5ml inj IVP PRN ×3 (01:53→10:20)
[2020-06-21 04:00] VITALS: BP 133/70
[2020-06-21 08:03] VITALS: BP 104/64
[2020-06-21 08:57] LABS: BASOPHILS % (AUTO) 1.5 % (0.0-2.0); HEMATOCRIT 33.8 % (37.0-47.0); HEMOGLOBIN 10.5 G/DL (12.0-16.0); LYMPHOCYTES % (AUTO) 33.7 % (20.0-45.0); MEAN CORPUSCULAR VOLUME 86 FL (80-99); MONOCYTES % (AUTO) 7.7 % (1.0-10.0); NEUTROPHILS % (AUTO) 51.1 % (45.0-75.0); PLATELET COUNT 154 K/UL (150-450); RED BLOOD COUNT 3.94 M/UL (4.20-5.40); RED CELL DISTRIBUTION WIDTH 25.6 % (11.6-14.8); WHITE BLOOD COUNT 3.7 K/UL (4.8-10.8)
[2020-06-21] MEDS: Sucralfate 1gm tab ORAL SCH (09:58)
[2020-06-21] MEDS ORDERED: Prochlorperazine 10mg tab ORAL PRN (10:32)
--- NOTE | 2020-06-21 11:50 | Discharge Summary ---
Discharge Summary Hospital Course Date of Admission Jun 18, 2020 at 15:50 Date of Discharge Jun 21, 2020 at 11:30 Admitting Diagnosis Hematemesis HPI Leelee Neves is a 55 year old female who was admitted on Jun 18, 2020 at 15:50 for Hematemesis Procedures EGD Hospital Course Mrs. Neves is a 55F with PMH PUD, antrectomy, and anxiety who presents for hematemesis and severe hypokalemia. Hypokalemia corrected after repletion and she underwent EGD (06/20/20) which showed severe esophagitis, which was deemed likely source of bleeding. no intervention done. she was instructed to take carafte and zofran prn for nausea. Patient is being d/c'ed home today in good condition. Discharge Condition Upon Discharge: stable Discharge Vital Signs Last Vital Signs Date Time Temp Pulse Resp B/P (MAP) Pulse Ox O2 Delivery O2 Flow Rate FiO2 06/21/20 09:04 Room Air 06/21/20 08:03 97.7 65 20 104/64 (77) 99 06/20/20 19:27 21 06/20/20 11:38 3 Discharge Disposition Patient was discharged to home Discharge Diagnoses: (1) Gastrointestinal hemorrhage (2) GIB (gastrointestinal bleeding) (3) Abdominal pain (4) Gastritis Arturo Rangel MD Jun 21, 2020 11:50
== END 2020-06-21 11:30 | disposition home or self-care (01) | DRG 243 ==
LOC: EMR 14:56 → 4E 15:50 → EDBEDREQ 16:33
PROC: 0DB38ZX Excision of Lower Esophagus, Via Natural or Artificial Opening Endoscopic, Diagnostic (ICD-10-PCS; principal; 2020-06-20 11:29)
DX: K20.91 Esophagitis, unspecified with bleeding (principal); D62 Acute posthemorrhagic anemia; F41.9 Anxiety disorder, unspecified; E87.6 Hypokalemia; Z88.6 Allergy status to analgesic agent; Z88.8 Allergy status to other drugs, medicaments and biological substances; K29.70 Gastritis, unspecified, without bleeding; Z98.84 Bariatric surgery status; Z90.3 Acquired absence of stomach [part of]
CPT/HCPCS: 36415; 71045; 74018; 80048; 80053; 80307; 81003; 82270; 83051; 83690; 83735; 84484; 85025; 85610; 85730; 86850; 86900; 86901; 94003; 94150; 94664; 96374; 96375; 96376; 99291; J2405; J7030; J8499; U0002